=== PATIENT | female | born 1945 | race Caucasian/White ===

== ENCOUNTER 2017-04-23 10:30 | Outpatient (RCR) | payer MEDICARE, OTHER, SELFPAY ==
--- NOTE | 2017-03-19 12:56 | HP.PTEVAL ---
Patient's Visit Information MARY JO RÍOS is a 71 year old F referred to Physical Therapy by Rin CALDERON with a diagnosis of LEG WEAKNESS - RADICULOPATHY?. Date of Evaluation: 03/19/17 Physical Therapist: Majo Ortega - Visit Plan Frequency: 2-3x /Week Duration: 4-6 Weeks Plan: POSTURE CORRECTION/STRENGTHENING, INSTRUCTION IN APPROPRIATE BODY MECHANICS AND ACTIVITY MODIFICATIONS. DLS STARTING WITH A NEUTRAL SPINE PROGRESSING ROM TOLERATED. DAVID LE ROM, STRETCHING AND STRENGTHENING. HEP INSTRUCTION. PATIENT MAY BENEFIT FROM AQUATIC THERAPY AND THIS WAS DISCUSSED WITH PATIENT. SHE REPORTS SHE WAS GOING TO MOVE HER CHECK UP FROM APR TO MAR WITH DR. RIVAS BECAUSE OF HER LEG SX'S AND SHE WOULD LIKE TO GO AHEAD AND SEE DR. RIVAS BEFORE CONTINUING WITH PT. SHE IS AGREEABLE TO AQUATIC THERAPY IF OK'D BY DR. RIVAS. SHE IS GOING TO GO AHEAD AND MAKE AN APPOINTMENT WITH DR. RIVAS NOW AND WILL FOLLOW UP WITH ME NEXT WEEK UNLESS DR. RIVAS WANTS HER TO HOLD PT. - Subjective Subjective: Work/Leisure: RETIRED. [employer]AFF DEVELOPMENT. Disability: NO. Present symptoms: RIGHT GROIN, DAVID THIGH, DAVID LEG AND DAVID FOOT NUMBING AND HEAVINESS. Present since: ABOUT 6 MONTHS AGO. Pain Scale: WORST 5/10. LEAST 1/10. Currently: 03/13. Commenced as a result of: NO APPARENT REASON. Symptoms at onset: ACHINESS IN RIGHT LEG - THE WHOLE LEG. Worse: STANDING, GETTING IN/OUT OF THE CAR, EXERCISING AT HOME, A LOT OF WALKING, SHOPPING, TRYING TO GET OUT OF A CHAIR. ON/OFF TOLIET. INITIATING GAIT AFTER SITTING. Better: SITTING, PUTTING FEET UP, MOVING THE LEG VS KEEPING IT STILL. PRESSURE STOCKING OTC RECOMMENDED BY DR. TORRES. Disturbed sleep: NO. Previous history/Previous treatment: UNREMARKABLE. NO BACK SURGERY. NO BRITTANY'S. NO CHIROPRACTOR. Coughing/sneezing/straining: NEGATIVE. Gait: DISTANCE/TIME LIMITED BECAUSE SHE HAS TOO REALLY FOCUS TO NOT LIMP ON LEFT LE (LEFT KNEE HISTORY) AND BOTH LEGS GET TIRED AND FEEL REALLY WEAK. SHUFFLING. Difficulty initiating urinatin: NO. Accidents: NO. Unexplained weight loss: NO. Imaging: NO LUMBAR IMAGING. PELVIC MRI 2016 DUE TO MONITORING OF A SPOT ON HER OVERY FOR ABOUT 2 YEARS. PMH: BREAST CANCER 1988 TREATED WITH MASTECTOMY RIGHT FOLLOWED BY 9 MONTHS OF CHEMOTHERAPY. NO RADIATION. CANCER FREE SINCE. LEFT KNEE TORN MENISCUS SURGICALLY REPAIRED FEB [address] COTO AT [facility] - STATES SHE STILL HAS DISCOMFORT IN THE KNEE. HAD CORTISONE SHOT ABOUT A YEAR AGO THAT HELPED SOME. NOW SHE IS ON AN ANTIINFLAMMATORY FOR IT BUT HAD TO STOP IT DUE TO SIDE EFFECTS ABOUT 3 MONTHS AGO. SHE HASN'T NOTICED WORSENING OF THE KNEE SINCE STOPPING ANTIINFLAMMATORY BUT CHRONIC PAIN. DOES NOT KNOW HOW SHE HURT HER KNEE. VARICOSE VEIN SURGERIES A FEW YEARS AGO. OTHER: FOR THE PAST MONTH SHE HAS BEEN TRYING SOME STRENGTHEING AND STRETCHING (INCLUDING KNEE TO CHEST) EX'S THAT SHE DID IN PT FOR HER KNEE BUT THEY AREN'T HELPING. THINKS SHE MIGHT HAVE PULLED A MUSCLE IN HER UPPER BACK/NECK FROM DOING NEW NECK EX'S. STATES THAT HER RIGHT HIP POPS SOMETIMES. - Objective Sitting Posture: FAIR. Standing Posture: FAIR. Lordosis: REDUCED. Lateral shift: NO. Relevant shift: N/A. Active Correction of posture: DECREASED DAVID LE SX'S. Other Observations: UNABLE TO TRANSFER INDEP'LY FORM SIT TO STAND WITHOUT UE ASSIST. INDEP GAIT WITHOUT ASSISTIVE DEVICE WITH DECREASED DAVID STRIDE LENGTH AND INCREASED TRUNK SIDE BEND DURING OPPOSITE LE SWING PHASE. Motor deficit: DAVID HIP WEAKNESS GRADED 3+ TO 4-/5. DAVID KNEE EXT 4/5, KNEE FLEX 4/5 AND ANKLE DORSIFLEXION 5/5. Sensory deficit: LIGHT TOUCH IS SYMMETRICAL DAVID LE'S. ROM deficit: TIGHT DAVID HIP FLEXORS, GASTROC SOLEUS COMPLEX'S AND HS'S. TIGHT DAVID HIP ROTATION (IR AND ER) RIGHT > LEFT AND DECREASED RIGHT HIP FLEXION ROM. Reflexes: DAVID ACHILLES DTR'S 2/3, DAVID ACHILLES 1/3. Dural Signs: POSITIVE RIGHT LE. Lumbar mvmt loss: flex - MIN - BURNING IN DAVID HAMSTRINGS SYMMETRICAL. ext - DANO - PROVOKES PULLING IN DAVID LE'S TO ABOUT HER KNEES. R SG - MOD - PROVOKES PAIN IN RIGHT GROIN. L SG - MOD - NO PAIN. Core strength: POOR. Palpation: OTHER: POSITIVE RIGHT VALERIE TEST. RIGHT GROIN PAIN IS PROVOKED WITH INCREASED RIGHT LE WEIGHT BEARING, RIGHT HIP FLEXION TESTING AND VALERIE TEST. ONLY ABLE TO SLS ON EACH LEG FOR A FEW SECONDS. - Goals Goal 1:: DECREASE C/O DAVID LE SX'S Goal Time Frame: 4-6 Weeks Goal 2:: IMPROVE GAIT, TRANSFER, STANDING, RISING FROM SITTING, AND INDEP EX FUNCTION Goal Time Frame: 4-6 Weeks Goal 3:: INSTRUCT IN PROPHYLAXIS Goal Time Frame: 4-6 Weeks - Rehabilitation Potential Rehabilitation Potential: Fair - Anticipated Interventions Patient/Client Instruction: Educate patient on: Condition, Plan of Care, Risk Factors, Benefits of Fitness Program For the Purpose of:: To improve self management Therapeutic Exercise to Include: Strength training, Balance training, Body mechanics, Postural training, Gait and locomotor training, In an aquatic setting, Dynamic Lumbar Stabilization For the Purpose of:: To improve ability of physical actions for home/community/work/leisure Thank you for the opportunity to evaluate your patient. For Medicare and Medicare HMO plans, please review the plan of care and approve it. It will need to be FAXED BACK to us at [phone] for Medicare purposes. Please let me know if there are questions or concerns regarding this plan of care. Physician Signature: Date:
--- NOTE | 2017-04-23 11:38 | HP.PTREVAL_ITS ---
DR.NHORN Jackson It has been my pleasure to treat MARY JO RÍOS over the last 10 visits for LEG WEAKNESS - RADICULOPATHY?. Please see the progress note below for an update on the physical therapy plan of care! Subjective: PATIENT REPORTS HER LEFT KNEE IS TWICE MUCH BETTER AND SHE IS STILL IMPROVING WITH THE EX'S. PATIENT REPORTS SHE IS STILL HAVING RIGHT GROIN PAIN AND IT DOESN'T SEEM TO BE IMPROVING. HAS AN APPOINTMENT WITH DR. RIVAS SATURDAY FOR IT. GETTING INTO THE CAR IS STILL A PROBLEM. PATIENT REPORTS THAT HER DAVID THIGH PAIN, AND THE NUMBING IN HER LEGS AND FEET ARE A LOT BETTER. GETTING UP FROM A CHAIR AND OFF OF THE TOLIET IS BETTER. BENDING TO DO SCAPBOOKING AND RISING FROM SITTING PROVOKES LE SX'S. PATIENT REPORTS SHE HAS NOT HAD ANY LUMBAR OR HIP IMAGING. Objective/Function: PATIENT HAS IMPROVED IN TERMS OF HER DAVID LE SX'S AND STRENGTH BUT SHE CONTINUES TO HAVE POOR CORE STRENGTH AND RIGHT GROIN PAIN. UPON EXAM, PATEL IS NOW ABLE TO TRANSFER INDEP'LY FORM SIT TO STAND WITHOUT UE ASSIST. INDEP GAIT WITHOUT ASSISTIVE DEVICE AND ONLY MILD LIMP NOW. Motor deficit: DAVID HIP WEAKNESS GRADED 4-/5 RIGHT AND 4/5 LEFT. DAVID KNEE EXT 4/5, KNEE FLEX 5/5 AND ANKLE DORSIFLEXION 5/5 WITH MMT. Sensory deficit: LIGHT TOUCH IS SYMMETRICAL DAVID LE'S. ROM deficit: TIGHT DAVID HIP FLEXORS, GASTROC SOLEUS COMPLEX'S AND HS'S. TIGHT DAVID HIP ROTATION (IR AND ER) RIGHT > LEFT AND DECREASED RIGHT HIP FLEXION ROM. Dural Signs: NEGATIVE DAVID LE'S. Lumbar mvmt loss: flex - MIN - BURNING IN DAVID HAMSTRINGS SYMMETRICAL. ext - DANO - PROVOKES PULLING IN RIGHT LE TO ABOUT HER KNEES. R SG - MOD - PROVOKES PAIN IN RIGHT GROIN. L SG - MOD - NO PAIN. Core strength: POOR. OTHER: POSITIVE RIGHT VALERIE TEST. RIGHT GROIN PAIN IS PROVOKED WITH INCREASED RIGHT LE WEIGHT BEARING, RIGHT HIP FLEXION TESTING, VALERIE TEST, HIP EXTENSION IN STANDING AND STANDING ERECT. Plan Plan: WOULD RECOMMEND PHYSICIAN RE-ASSESSMENT AND CONTINUED PT 3X'S A WEEK X 10 VISITS FOR AQUATIC THERAPY AND FURTHER POSTURE CORRECTION/STRENGTHENING, INSTRUCTION IN APPROPRIATE BODY MECHANICS AND ACTIVITY MODIFICATIONS. DLS STARTING WITH A NEUTRAL SPINE PROGRESSING ROM TOLERATED. DAVID LE ROM, STRETCHING AND STRENGTHENING. HEP INSTRUCTION. Goals Goal 1:: DECREASE C/O DAVID LE SX'S Goal Time Frame: 4-6 Weeks Goal Progress: Progressing Goal 2:: IMPROVE GAIT, TRANSFER, STANDING, RISING FROM SITTING, AND INDEP EX FUNCTION Goal Time Frame: 4-6 Weeks Goal Progress: Progressing Goal 3:: INSTRUCT IN PROPHYLAXIS Goal Time Frame: 4-6 Weeks Goal Progress: Progressing Anticipated Interventions Patient/Client Instruction: Educate patient on: Condition, Plan of Care, Risk Factors, Benefits of Fitness Program For the Purpose of:: To improve self management Therapeutic Exercise to Include: Strength training, Balance training, Body mechanics, Postural training, Gait and locomotor training, In an aquatic setting, Dynamic Lumbar Stabilization For the Purpose of:: To improve ability of physical actions for home/community/ work/leisure Please do not hesitate to contact me at [phone] by phone or Fax: if you have questions or concerns regarding this new plan of care! Sincerely, Majo Ortega
--- NOTE | 2017-09-03 12:46 | HP.PTDCSUM ---
HP - PT D/C Summary It has been my pleasure to treat MARY JO RÍOS under orders from Rin Dasilva, for the diagnosis of LEG WEAKNESS - RADICULOPATHY? for a total of 10 visit(s). Discharge Date: Please see the following information for a summary of their discharge status. - Subjective Subjective: PATIENT REPORTS HER LEFT KNEE IS TWICE MUCH BETTER AND SHE IS STILL IMPROVING WITH THE EX'S. PATIENT REPORTS SHE IS STILL HAVING RIGHT GROIN PAIN AND IT DOESN'T SEEM TO BE IMPROVING. HAS AN APPOINTMENT WITH DR. RIVAS SATURDAY FOR IT. GETTING INTO THE CAR IS STILL A PROBLEM. PATIENT REPORTS THAT HER DAVID THIGH PAIN, AND THE NUMBING IN HER LEGS AND FEET ARE A LOT BETTER. GETTING UP FROM A CHAIR AND OFF OF THE TOLIET IS BETTER. BENDING TO DO SCAPBOOKING AND RISING FROM SITTING PROVOKES LE SX'S. PATIENT REPORTS SHE HAS NOT HAD ANY LUMBAR OR HIP IMAGING. - Pain LEFT KNEE Pain Intensity (Out of 10): 0 - Overall Improvement % Improvement: 50 - Objective Objective/Function: PATIENT HAS IMPROVED IN TERMS OF HER DAVID LE SX'S AND STRENGTH BUT SHE CONTINUES TO HAVE POOR CORE STRENGTH AND RIGHT GROIN PAIN. UPON EXAM, PATEL IS NOW ABLE TO TRANSFER INDEP'LY FORM SIT TO STAND WITHOUT UE ASSIST. INDEP GAIT WITHOUT ASSISTIVE DEVICE AND ONLY MILD LIMP NOW. Motor deficit: DAVID HIP WEAKNESS GRADED 4-/5 RIGHT AND 4/5 LEFT. DAVID KNEE EXT 4/5, KNEE FLEX 5/5 AND ANKLE DORSIFLEXION 5/5 WITH MMT. Sensory deficit: LIGHT TOUCH IS SYMMETRICAL DAVID LE'S. ROM deficit: TIGHT DAVID HIP FLEXORS, GASTROC SOLEUS COMPLEX'S AND HS'S. TIGHT DAVID HIP ROTATION (IR AND ER) RIGHT > LEFT AND DECREASED RIGHT HIP FLEXION ROM. Dural Signs: NEGATIVE DAVID LE'S. Lumbar mvmt loss: flex - MIN - BURNING IN DAVID HAMSTRINGS SYMMETRICAL. ext - DANO - PROVOKES PULLING IN RIGHT LE TO ABOUT HER KNEES. R SG - MOD - PROVOKES PAIN IN RIGHT GROIN. L SG - MOD - NO PAIN. Core strength: POOR. OTHER: POSITIVE RIGHT VALERIE TEST. RIGHT GROIN PAIN IS PROVOKED WITH INCREASED RIGHT LE WEIGHT BEARING, RIGHT HIP FLEXION TESTING, VALERIE TEST, HIP EXTENSION IN STANDING AND STANDING ERECT. - Goals Goal 1:: DECREASE C/O DAVID LE SX'S Goal Progress: Progressing Goal 2:: IMPROVE GAIT, TRANSFER, STANDING, RISING FROM SITTING, AND INDEP EX FUNCTION Goal Progress: Progressing Goal 3:: INSTRUCT IN PROPHYLAXIS Goal Progress: Progressing - Plan Plan: WOULD RECOMMEND PHYSICIAN RE-ASSESSMENT AND CONTINUED PT 3X'S A WEEK X 10 VISITS FOR AQUATIC THERAPY AND FURTHER POSTURE CORRECTION/STRENGTHENING, INSTRUCTION IN APPROPRIATE BODY MECHANICS AND ACTIVITY MODIFICATIONS. DLS STARTING WITH A NEUTRAL SPINE PROGRESSING ROM TOLERATED. DAVID LE ROM, STRETCHING AND STRENGTHENING. HEP INSTRUCTION. - D/C Information If there are questions or concerns regarding this patient's physical therapy, please feel free to call me at [phone]. Thank you for the referral of this patient. Sincerely, Majo Ortega
== END 2017-04-23 19:00 | disposition home or self-care (01) ==
LOC: PT 10:30
PROVIDERS: Family Provider Internal Medicine; PCP Internal Medicine; Visit Provider Podiatrist
DX: R29.898 Other symptoms and signs involving the musculoskeletal system (principal)
CPT/HCPCS: 97110; 97162; 97530

== ENCOUNTER → 2017-04-26 09:50 | Outpatient (CLI) | payer MEDICARE, OTHER, SELFPAY ==
--- NOTE | 2017-04-26 09:54 | RAD_ITS ---
STUDY: X-RAY - UNILATERAL RIBS ( RIGHT ) WITH CHEST REASON FOR EXAM: Female, 71 years old. Right rib pain. No history of injury. TECHNIQUE - RIBS: 4 view(s) of the ribs. TECHNIQUE - CHEST: Single frontal view of the chest. COMPARISON: None. FINDINGS - RIBS: There is deformity of the lateral aspect of the right sixth and seventh ribs probably due to old fractures. There is no demonstrated acute fracture. FINDINGS - CHEST: The lungs are clear and expanded. There is pleural fibrotic thickening of the pulmonary lung apices. Normal size heart. Normal mediastinum and ciera. Normal visualized pulmonary arteries. Normal visualized aortic arch and descending thoracic aorta. There are diffuse degenerative changes of the visualized thoracic spine. There is degenerative osteoarthritis of the bilateral shoulders. There is no demonstrated abnormality of the visualized soft tissue structures of the upper abdomen. RAD/Ribs Uni Min 3V w/PA Chest IMPRESSION: RIBS: Deformity of the right sixth and seventh ribs probably due to old fracture. No demonstrated acute fracture. CHEST: No active pulmonary disease. Electronically Signed: Mikey Cruz MD at 8:55 EST Tel , Service support ,
--- NOTE | 2017-04-26 09:54 | RAD_ITS ---
STUDY: X-RAY - PELVIS AND RIGHT HIP REASON FOR EXAM: Female, 71 years old. Pain. TECHNIQUE: Radiological exam, hip, unilateral, with pelvis when performed; 2 or 3 views. COMPARISON: None. FINDINGS: There is a non-specific bowel gas pattern. There is a small calcification in the left side of L4-L5 which could be due to phleboliths. There are degenerative changes in the lower lumbar spine. Normal bilateral iliac wings, sacroiliac joints and visualized sacrum. Normal bilateral superior and inferior pubic rami. Normal pubic symphysis. Normal bilateral ischial tuberosities. Normal visualized femoral head. Normal acetabulum. There is mild articular joint space narrowing of the hip. RAD/Hip 2-3 Views with Pelvis IMPRESSION: Degenerative changes in the visualized lower lumbar spine. Mild narrowing of the right hip joint. Electronically Signed: Mikey Cruz MD at 8:52 EST Tel , Service support ,
== END ==
PROVIDERS: Family Provider Internal Medicine; PCP Internal Medicine; Visit Provider Internal Medicine
DX: R07.81 Pleurodynia (principal); M25.559 Pain in unspecified hip
CPT/HCPCS: 71101; 73502

== ENCOUNTER → 2017-06-18 07:14 | Outpatient (CLI) | payer MEDICARE, OTHER, SELFPAY ==
[2017-06-18 07:37] LABS: Absolute Lymphocyte Count 1.01 X10^3/ul (0.83-4.51); Absolute Neutrophil Count 2.1 X10^3/uL (2.0-7.7); Basophil# 0.02 X10^3/uL; Basophil% 0.5 % (0-1); Eosinophil# 0.13 X10^3/uL; Eosinophils% 3.4 % (0-5); Hematocrit 39.8 % (37-47); Hemoglobin 13.3 g/dl (12.0-15.0); Lymphocyte # 1.01 X10^3/ul (4.0); Lymphocyte % 26.6 % (19-41); Mean Corp Hgb Conc 33.4 g/gl (32-36); Mean Corpuscular Hgb 31.1 pg (27.0-32.0); Mean Platelet Vol. 9.9 fl (6.2-12.0); Monocyte# 0.51 X10^3/uL; Monocyte% 13.5 % (0-10); Neutrophil # 2.12 X10^3/uL (2.7-7.7); Platelet Count 249 K/mm3 (150-450); RBC Distribution Width CV 12.4 % (11.6-14.6); RBC Distribution Width SD 41.3 fl (35.1-43.9); Red Blood Count 4.28 M/mm3 (4.2-5.4); White Blood Count 3.8 K/mm3 (4.4-11.0)
[2017-06-18 07:47] LABS: POSITIVE COUNT NO; POSITIVE DIFFERENTIAL NO; POSITIVE MORPHOLOGY NO
[2017-06-18 08:02] LABS: ALB/GLOB Ratio 1.1 RATIO (0.9-2.4); AST(SGOT) 18 U/L (15-37); Alanine Aminotransfer ALT/SGPT 19 U/L (13-56); Albumin, Serum 3.8 g/dL (3.2-5.0); Alkaline Phosphatase 63 U/L (45-117); Anion Gap 6 (5-15); BUN 13 mg/dL (7-18); BUN/Creat Ratio 18.9 RATIO (10-20); Calcium,Total 9.3 mg/dL (8.5-10.1); Chloride 105 mmol/L (98-107); Creatinine, Serum 0.69 mg/dL (0.55-1.02); EST Glomerular Filtration Rate 89 mL/min (>60); Est Glom Filt Rate - Afr Amer 108 mL/min (>60); Globulin 3.4 g/dL (2.2-4.2); Glucose 90 mg/dL (74-106); Potassium 3.7 mmol/L (3.5-5.1); Protein, Total 7.2 g/dL (6.4-8.2); Sodium Level 142 mmol/L (136-145)
[2017-06-18 09:32] LABS: Hemoglobin A1c 5.7 % (4.2-6.3)
== END ==
PROVIDERS: Family Provider Internal Medicine; PCP Internal Medicine; Visit Provider Internal Medicine
DX: K76.0 Fatty (change of) liver, not elsewhere classified (principal); L65.9 Nonscarring hair loss, unspecified; R73.01 Impaired fasting glucose
CPT/HCPCS: 36415; 80053; 82105; 82677; 83036; 84702; 85025; 86336

== ENCOUNTER → 2017-07-02 09:25 | Outpatient (CLI) | payer MEDICARE, OTHER, SELFPAY ==
--- NOTE | 2017-07-02 09:45 | MRI_ITS ---
STUDY: MRI ABDOMEN WITH CONTRAST REASON FOR EXAM: Female, 71 years old. Follow-up pancreatic cyst. TECHNIQUE: Standardized fat and water weighted pulse sequences were obtained in all 3 orthogonal planes post contrast administration. 7 ml of Gadavist contrast material was administered intravenously. COMPARISON: CT scan 01/07/2015, CT scan 08/02/2016, previous MRI 12/17/2016.. FINDINGS: The visualized lung bases are unremarkable. The visualized portions of the heart are within normal limits. There is a marked decrease in the signal intensity of the liver on the axial T1-weighted images on the opposed-phase images as compared to the in-phase images, consistent with diffuse steatosis. There is hepatomegaly. Normal gallbladder. Distended common bile duct reaching 1.1 cm. Possible intraluminal structure or mass as seen on image 13 of sequence 9 and image 33 of sequence 3. ERCP suggested. Normal spleen. Essentially normal pancreas. Currently, no significant mass is seen in previously described tiny cyst is also essentially inapparent. Normal bilateral adrenal glands. Normal right kidney. Normal left kidney. Stable bilateral small renal cysts. Normal visualized stomach. Normal small intestine. Normal colon. The appendix is visualized and appears normal. Normal abdominal aorta. Normal inferior vena cava. Normal retroperitoneum. Normal abdominal wall. There are diffuse degenerative changes of the visualized lumbar spine. MRI/MRI Abd WITH and W/O Contrast IMPRESSION: Fatty liver and hepatomegaly. Distended common bile duct, cannot exclude intraluminal contents distally. ERCP suggested. On this exam, pancreas is essentially unremarkable with no evidence for significant mass. Electronically Signed: Mikael Gorman MD at 14:05 EDT , Service support ,
== END ==
PROVIDERS: Family Provider Internal Medicine; PCP Internal Medicine; Visit Provider Internal Medicine
DX: K86.2 Cyst of pancreas (principal)
CPT/HCPCS: 74183; A9585

== ENCOUNTER 2017-08-09 23:58 | Inpatient (IN) | payer MEDICARE, OTHER, SELFPAY ==
--- NOTE | 2017-08-09 13:06 | EKG12_ITS ---
Test Reason : CELLULITIS Blood Pressure : / mmHG Vent. Rate : 078 BPM Atrial Rate : 078 BPM P-R Int : 154 ms QRS Dur : 098 ms QT Int : 376 ms P-R-T Axes : 067 067 058 degrees QTc Int : 428 ms Normal sinus rhythm Left ventricular hypertrophy Abnormal ECG Confirmed by NASH PUCKETT, HUANG ([id number]), international editorial producer XUAN MONTGOMERY ([id number]) on 08/14/2017 5:35:08 PM Referred By: RAMON/STEPHANE Confirmed By:HUANG CAO MD
--- NOTE | 2017-08-09 19:45 | RAD_ITS ---
STUDY: X-RAY CHEST REASON FOR EXAM: Female, 71 years old. Fever and cellulitis TECHNIQUE: Single AP portable view of the chest. COMPARISON: 04/26/2017 FINDINGS: There is hyperinflation of the lungs consistent with chronic obstructive lung disease (COPD). Lungs are clear. There is no demonstrated pleural abnormality. There is mild cardiac enlargement. Normal mediastinum and ciera. Normal visualized pulmonary arteries. Normal visualized aortic arch and descending thoracic aorta. There are diffuse degenerative changes of the visualized thoracic spine. Normal visualized ribs, clavicles, and shoulders. There is no demonstrated abnormality of the visualized soft tissue structures of the upper abdomen. RAD/Chest 1 View (Portable) IMPRESSION: COPD without acute findings Electronically Signed: Elliott Phillip DO at 20:02 EDT Tel , Service support ,
--- NOTE | 2017-08-09 23:59 | DT_ITS ---
This patient was seen during an EMR downtime August 05, 2017 - August 12, 2017. This patient may have a combination of paper and electronic documentation or all paper documentation. All documentation is viewable within the e-chart portion of [employer] for each patient visit.
--- NOTE | 2017-08-10 10:32 | VDUE_ITS ---
Reason For Study: RUE cellulitis Right Proximal Right jugular vein is spontaneous, widely patent, phasic, with no intraluminal echogenicity noted. Right subclavian vein is spontaneous, widely patent, phasic, with no intraluminal echogenicity noted. Right Lower Arm Right radial vein is compressible. Right ulnar vein is compressible. Right Arm Right axillary vein is spontaneous, patent, phasic, competent, compressible and demonstrates augmentation. Right brachial vein is compressible. Right cephalic vein is compressible. Right basilic vein is compressible. < Patient Safety Preliminary given to Gabby MS3 bellows charger assembler. Interpretation Summary Deep veins of the right upper extremity are patent and compressible segmentally. There is no evidence of deep vein thrombosis. The superficial veins of the right upper extremity, the basilic and cephalic veins, are patent and compressible. There is no evidence of right upper extremity superficial thrombophlebitis involving the veins imaged. Ordering Physician: Ronel Berman Referring Physician: MAYO ANDINO Performed By: Yumiko Martin RDCS, RVT ??? Reason For Study: RUE cellulitis < Interpretation Summary Ordering Physician: Ronel Berman Referring Physician: MAYO ANDINO Performed By: Yumiko Martin RDCS, RVT
[2017-08-10 14:38] LABS: M R Staph aureus DNA By PCR Negative (Negative); Probe Check PASS; Specimen Processing Control PASS
[2017-08-11 07:33] LABS: Hematocrit 39.9 % (37-47); Hemoglobin 13.1 g/dl (12.0-15.0); Mean Corpuscular Hgb 30.8 pg (27.0-32.0); Mean Corpuscular Volume 93.7 fL (81-99); Red Blood Count 4.26 M/mm3 (4.2-5.4); White Blood Count 7.5 K/mm3 (4.4-11.0)
[2017-08-11 07:34] LABS: Mean Corp Hgb Conc 32.8 g/gl (32-36); Mean Platelet Vol. 9.7 fl (6.2-12.0); Platelet Count 231 K/mm3 (150-450); RBC Distribution Width CV 12.8 % (11.6-14.6); RBC Distribution Width SD 44.1 fl (35.1-43.9); Scan Indicated on CBC? Y/N NO
[2017-08-11 12:48] LABS: Anion Gap 9 (5-15); BUN 6 mg/dL (7-18); Calcium,Total 8.3 mg/dL (8.5-10.1); Chloride 106 mmol/L (98-107); EST Glomerular Filtration Rate 129 mL/min (>60); Est Glom Filt Rate - Afr Amer 156 mL/min (>60); Glucose 114 mg/dL (74-106); Potassium 3.4 mmol/L (3.5-5.1); Sodium Level 139 mmol/L (136-145)
[2017-08-13 02:55] LABS: Lactic Acid 0.9 mmol/L (0.4-2.0)
[2017-08-13 04:42] LABS: Hematocrit 43.4 % (37-47); Hemoglobin 14.4 g/dl (12.0-15.0); International Normalized Ratio 0.9; Mean Corpuscular Volume 94.1 fL (81-99); Partial Thromboplast Time 28.6 Seconds (24.1-36.2); Prothrombin Time (Protime)PT. 12.5 SECONDS (11.7-14.9); Red Blood Count 4.61 M/mm3 (4.2-5.4); White Blood Count 9.7 K/mm3 (4.4-11.0)
[2017-08-13 04:43] LABS: Absolute Lymphocyte Count 1.09 X10^3/ul (0.83-4.51); Absolute Neutrophil Count 8.1 X10^3/uL (2.0-7.7); Basophil# 0.02 X10^3/uL; Basophil% 0.2 % (0-1); Lymphocyte # 1.09 X10^3/ul (4.0); Lymphocyte % 11.2 % (19-41); Mean Corp Hgb Conc 33.2 g/gl (32-36); Mean Corpuscular Hgb 31.2 pg (27.0-32.0); Mean Platelet Vol. 9.8 fl (6.2-12.0); Monocyte# 0.56 X10^3/uL; Monocyte% 5.8 % (0-10); Neutrophil % 82.7 % (47-70); POSITIVE COUNT NO; POSITIVE DIFFERENTIAL NO; POSITIVE MORPHOLOGY NO; Platelet Count 266 K/mm3 (150-450); RBC Distribution Width CV 12.7 % (11.6-14.6)
[2017-08-13 04:45] LABS: BUN 11 mg/dL (7-18); Glucose 108 mg/dL (74-106)
[2017-08-13 04:46] LABS: ALB/GLOB Ratio 1.1 RATIO (0.9-2.4); AST(SGOT) 24 U/L (15-37); Alanine Aminotransfer ALT/SGPT 26 U/L (13-56); Albumin, Serum 4.1 g/dL (3.2-5.0); Alkaline Phosphatase 64 U/L (45-117); Anion Gap 8 (5-15); BUN/Creat Ratio 17.5 RATIO (10-20); Calcium,Total 9.1 mg/dL (8.5-10.1); Chloride 99 mmol/L (98-107); Creatinine, Serum 0.63 mg/dL (0.55-1.02); EST Glomerular Filtration Rate 99 mL/min (>60); Est Glom Filt Rate - Afr Amer 120 mL/min (>60); Globulin 3.7 g/dL (2.2-4.2); Potassium 3.2 mmol/L (3.5-5.1); Protein, Total 7.8 g/dL (6.4-8.2); Sodium Level 137 mmol/L (136-145)
[2017-08-13 09:54] LABS: Anion Gap 7 (5-15); BUN 8 mg/dL (7-18); BUN/Creat Ratio 14.3 RATIO (10-20); Calcium,Total 8.1 mg/dL (8.5-10.1); Chloride 108 mmol/L (98-107); Creatinine, Serum 0.56 mg/dL (0.55-1.02); EST Glomerular Filtration Rate 113 mL/min (>60); Est Glom Filt Rate - Afr Amer 137 mL/min (>60); Glucose 100 mg/dL (74-106); Magnesium 2.3 mg/dL (1.6-2.6); Potassium 3.3 mmol/L (3.5-5.1); Sodium Level 143 mmol/L (136-145)
[2017-08-13 21:31] LABS: Hemoglobin 12.3 g/dl (12.0-15.0); Mean Corp Hgb Conc 33.2 g/gl (32-36); Mean Corpuscular Volume 93.2 fL (81-99); Mean Platelet Vol. 9.8 fl (6.2-12.0); Neutrophil % 71.8 % (47-70); POSITIVE COUNT NO; POSITIVE DIFFERENTIAL NO; POSITIVE MORPHOLOGY NO; Platelet Count 230 K/mm3 (150-450); RBC Distribution Width CV 13.1 % (11.6-14.6); RBC Distribution Width SD 44.6 fl (35.1-43.9); Red Blood Count 3.97 M/mm3 (4.2-5.4); White Blood Count 5.6 K/mm3 (4.4-11.0)
[2017-08-13 21:32] LABS: Absolute Lymphocyte Count 1.07 X10^3/ul (0.83-4.51); Absolute Neutrophil Count 4.1 X10^3/uL (2.0-7.7); Basophil# 0.01 X10^3/uL; Basophil% 0.2 % (0-1); Eosinophil# 0.03 X10^3/uL; Eosinophils% 0.5 % (0-5); Lymphocyte # 1.07 X10^3/ul (4.0); Monocyte# 0.48 X10^3/uL; Monocyte% 8.5 % (0-10); Neutrophil # 4.05 X10^3/uL (2.7-7.7)
== END 2017-08-11 09:30 | disposition home or self-care (01) | DRG 603 ==
LOC: ED 08-10 08:55 → MS3 08-10 08:56
PROVIDERS: Internal Medicine; Admitting Provider Family Medicine; Emergency Provider Emergency Medicine; Family Provider Internal Medicine; PCP Internal Medicine; Visit Provider Family Medicine
DX: L03.113 Cellulitis of right upper limb (principal); E87.6 Hypokalemia; I97.2 Postmastectomy lymphedema syndrome; B19.20 Unspecified viral hepatitis C without hepatic coma; Z85.3 Personal history of malignant neoplasm of breast; Z90.11 Acquired absence of right breast and nipple; Z87.891 Personal history of nicotine dependence
CPT/HCPCS: 36415; 71045; 80048; 80053; 83605; 83735; 84484; 85025; 85027; 85610; 85730; 87040; 87641; 93005; 93971; 96365; 96367; 99285; J7030; A4216; J2405

== ENCOUNTER → 2017-09-03 14:41 | Outpatient (CLI) | payer MEDICARE, OTHER, SELFPAY ==
--- NOTE | 2017-09-03 14:44 | CT_ITS ---
STUDY: CT ABDOMEN AND PELVIS WITH CONTRAST REASON FOR EXAM: Female, 71 years old. Left lower quadrant pain for 5 days with constipation. History of kidney stones and appendectomy. RADIATION DOSAGE (If Supplied By Facility): CTDIvol = ( 11.23 ) mGy, DLP = ( 742.20 ) mGycm TECHNIQUE: Transaxial images were obtained from the dome of the diaphragm to the symphysis pubis without oral contrast. 100 ml of Isovue 300 contrast was administered. Sagittal and coronal images were reconstructed. Individualized dose optimization techniques were used for this CT. COMPARISON: MRI abdomen July 02, 2017; CT abdomen and pelvis August 02, 2016. FINDINGS: The visualized lung bases are unremarkable. The visualized portions of the heart are within normal limits. The elongated right lobe of liver is just over 20 cm in height, extending to the right iliac crest. No demonstrated focal hepatic mass. The patent portal vein diameter is 15.5 mm. Normal gallbladder. The diameter of the common bile duct reaches 8mm, and there is borderline intrahepatic bile duct ectasia. Normal spleen. Normal pancreas. Normal bilateral adrenal glands. There is a stable 14 mm cortical cyst in the posterior midpole of the right kidney. Mild to moderate left hydroureteronephrosis down to a 6 mm stone at the mid ureter. Normal visualized stomach. There is a gas-filled 1.55 x 1.3 x 2.2 cm periampullary duodenal diverticulum. Normal small intestine. There are multiple colonic diverticula consistent with diverticulosis. There is a suture line in the region of the appendix consistent with a prior appendectomy. There is minimal atherosclerotic calcification of the abdominal aorta and internal iliac arteries, without a demonstrated aneurysm. Normal inferior vena cava. There are stable nonspecific periaortic lymph nodes in the retroperitoneum. Normal urinary bladder. There is atrophy of the uterus. Normal abdominal wall. There are diffuse degenerative changes and mild S-shaped scoliosis of the visualized lumbar spine. There is [id number] osteophytic degenerative narrowing of the bilateral hip joints, greater on the right. CT/Abdomen/Pelvis WITH Contrast IMPRESSION: 1. 6 mm stone, seen previously in the lower pole left kidney, is now in the mid left ureter. There is mild to moderate proximal left hydroureteronephrosis. 2. Stable 14 mm cortical cyst at the midpole of the right kidney. 3. Stable elongated right lobe of liver. No demonstrated hepatic mass. 4. There is a periampullary diverticulum of the duodenum. There is stable mild ectasia of the biliary tree down to this level. 5. Colonic diverticulosis without acute diverticulitis. No sign of bowel obstruction. Prior appendectomy. 6. Degenerative changes and mild S-shaped scoliosis of the lumbar spine, as well as degenerative arthrosis of the bilateral hips, greater on the right. Electronically Signed: Rashaad Becerra MD at 18:22 EDT , Service support ,
[2017-09-03 14:59] LABS: Lyme Ab Screen Interpretation REF LAB
[2017-09-03 15:53] LABS: Erythrocyte Sedimentation Rate 28 mm/hr (0-30)
[2017-09-03 15:56] LABS: Absolute Lymphocyte Count 1.03 X10^3/ul (0.83-4.51); Absolute Neutrophil Count 4.6 X10^3/uL (2.0-7.7); Basophil# 0.04 X10^3/uL; Basophil% 0.6 % (0-1); Eosinophil# 0.09 X10^3/uL; Eosinophils% 1.3 % (0-5); Lymphocyte # 1.03 X10^3/ul (4.0); Lymphocyte % 15.1 % (19-41); Mean Corp Hgb Conc 34.1 g/gl (32-36); Mean Corpuscular Hgb 31.2 pg (27.0-32.0); Mean Corpuscular Volume 91.3 fL (81-99); Mean Platelet Vol. 10.3 fl (6.2-12.0); Monocyte# 1.02 X10^3/uL; Neutrophil # 4.61 X10^3/uL (2.7-7.7); Neutrophil % 67.7 % (47-70); Platelet Count 256 K/mm3 (150-450); RBC Distribution Width CV 12.4 % (11.6-14.6); RBC Distribution Width SD 40.6 fl (35.1-43.9); Red Blood Count 4.49 M/mm3 (4.2-5.4); White Blood Count 6.8 K/mm3 (4.4-11.0)
[2017-09-03 16:07] LABS: POSITIVE COUNT NO; POSITIVE DIFFERENTIAL NO; POSITIVE MORPHOLOGY NO
[2017-09-03 17:07] LABS: ALB/GLOB Ratio 1.1 RATIO (0.9-2.4); AST(SGOT) 29 U/L (15-37); Alanine Aminotransfer ALT/SGPT 24 U/L (13-56); Albumin, Serum 4.1 g/dL (3.2-5.0); Alkaline Phosphatase 64 U/L (45-117); Anion Gap 10 (5-15); BUN 17 mg/dL (7-18); Calcium,Total 9.7 mg/dL (8.5-10.1); Chloride 100 mmol/L (98-107); Creatinine, Serum 1.06 mg/dL (0.55-1.02); EST Glomerular Filtration Rate 54 mL/min (>60); Est Glom Filt Rate - Afr Amer 65 mL/min (>60); Globulin 3.7 g/dL (2.2-4.2); Glucose 102 mg/dL (74-106); Potassium 3.5 mmol/L (3.5-5.1); Protein, Total 7.8 g/dL (6.4-8.2); Rheumatoid Factor < 10.0 IU/mL (<15); Sodium Level 137 mmol/L (136-145)
[2017-09-06 14:32] LABS: ANTINUCLEAR ANTIBODIES DIRECT Negative (Negative)
[2017-09-07 03:07] LABS: Angiotensin Convert Enzyme 66 U/L (14-82)
[2017-09-09 10:22] LABS: CCP IgG Antibodies 5 units (0-19); Lyme Scn Total Ab w/Rflx <0.91 ISR (0.00-0.90)
== END ==
PROVIDERS: Family Provider Internal Medicine; PCP Internal Medicine; Visit Provider Internal Medicine
DX: R10.32 Left lower quadrant pain (principal)
CPT/HCPCS: 36415; 74177; 80053; 82164; 85025; 85652; 86038; 86140; 86200; 86431; 86618; Q9967

== ENCOUNTER → 2017-09-19 13:20 | Outpatient (CLI) | payer MEDICARE, OTHER, SELFPAY ==
[2017-09-19 16:33] LABS: ALB/GLOB Ratio 1.1 RATIO (0.9-2.4); AST(SGOT) 23 U/L (15-37); Alanine Aminotransfer ALT/SGPT 23 U/L (13-56); Albumin, Serum 3.9 g/dL (3.2-5.0); Alkaline Phosphatase 56 U/L (45-117); Anion Gap 6 (5-15); BUN 15 mg/dL (7-18); Calcium,Total 9.3 mg/dL (8.5-10.1); Chloride 103 mmol/L (98-107); Creatinine, Serum 0.71 mg/dL (0.55-1.02); EST Glomerular Filtration Rate 85 mL/min (>60); Est Glom Filt Rate - Afr Amer 103 mL/min (>60); Globulin 3.4 g/dL (2.2-4.2); Glucose 79 mg/dL (74-106); Magnesium 2.1 mg/dL (1.6-2.6); Potassium 3.6 mmol/L (3.5-5.1); Protein, Total 7.3 g/dL (6.4-8.2); Sodium Level 139 mmol/L (136-145)
[2017-09-20 08:14] LABS: Vitamin D,25 Hydroxy 83.9 ng/mL (29.95-100.01)
== END ==
PROVIDERS: Family Provider Internal Medicine; PCP Internal Medicine; Visit Provider Internal Medicine Endocrinology, Diabetes & Metabolism
DX: M81.0 Age-related osteoporosis without current pathological fracture (principal); E04.9 Nontoxic goiter, unspecified; E55.9 Vitamin D deficiency, unspecified; E83.42 Hypomagnesemia
CPT/HCPCS: 36415; 80053; 82306; 83735; 84443

== ENCOUNTER → 2017-09-30 09:54 | Outpatient (CLI) | payer MEDICARE, OTHER, SELFPAY ==
--- NOTE | 2017-09-30 09:56 | BI_ITS ---
MAMMOGRAPHY - UNILATERAL SCREENING: LEFT BREAST REASON FOR EXAM: Female, 71 years old. Routine annual screening examination (unilateral). PERTINENT HISTORY: Personal history of breast cancer. Prior right mastectomy and chemotherapy. TECHNIQUE: Digital unilateral breast roxana (3D mammographic acquisition) in the CC and MLO projections. 2-D mediolateral oblique (MLO) and craniocaudad (CC) views of both breasts were obtained. CAD: Full Field Digital Mammography with Computer Added Detection was performed. COMPARISON: Comparison is made with prior study dated September 27, 2016 and September 26, 2015. FINDINGS: Breast Composition: The breasts are heterogeneously dense, which may obscure small masses. There are no dominant masses or suspicious calcifications. No other significant abnormalities are identified. There has been no significant change since the prior study. BI/UNILAT LT SCRN W/CAD IMPRESSION: Stable unilateral screening mammogram. Yearly follow-up mammogram recommended. (A) ASSESSMENT CATEGORY: BIRADS Category 1: Negative. A letter regarding these results will be sent to the patient by the facility within 30 days. Approximately 10% of breast cancers are not detected by mammography. A normal mammogram should not delay biopsy of a clinically suspicious abnormality. [id number] Electronically Signed: Filiberto Medellin MD at 11:28 EDT Tel [phone], Service support ,
== END ==
PROVIDERS: Family Provider Internal Medicine; PCP Internal Medicine; Visit Provider Internal Medicine
DX: Z12.31 Encounter for screening mammogram for malignant neoplasm of breast (principal); Z85.3 Personal history of malignant neoplasm of breast; Z90.11 Acquired absence of right breast and nipple
CPT/HCPCS: 77061; 77067; G0279

== ENCOUNTER → 2017-10-02 10:05 | Outpatient (CLI) | payer MEDICARE, OTHER, SELFPAY ==
[2017-10-05 03:06] LABS: HCV Quant. RNA PCR HCV Not Detected IU/mL (.)
== END ==
PROVIDERS: Family Provider Internal Medicine; PCP Internal Medicine; Visit Provider Internal Medicine Gastroenterology
DX: B19.20 Unspecified viral hepatitis C without hepatic coma (principal)
CPT/HCPCS: 36415; 87522

== ENCOUNTER → 2017-10-22 09:12 | Outpatient (CLI) | payer MEDICARE, OTHER, SELFPAY ==
[2017-10-22 10:56] LABS: Magnesium 2.2 mg/dL (1.6-2.6)
[2017-10-23 09:04] LABS: PTHIN 55.3 pg/mL (18.4-80.1)
== END ==
PROVIDERS: Family Provider Internal Medicine; PCP Internal Medicine; Visit Provider Internal Medicine Endocrinology, Diabetes & Metabolism
DX: E83.42 Hypomagnesemia (principal); N20.0 Calculus of kidney; M81.0 Age-related osteoporosis without current pathological fracture
CPT/HCPCS: 36415; 83735; 83970

== ENCOUNTER → 2017-10-28 07:21 | Outpatient (CLI) | payer MEDICARE, OTHER, SELFPAY | PROVIDERS: Family Provider Internal Medicine; PCP Internal Medicine; Visit Provider Internal Medicine Endocrinology, Diabetes & Metabolism | DX: E83.42 Hypomagnesemia (principal); N20.0 Calculus of kidney; M81.0 Age-related osteoporosis without current pathological fracture | CPT/HCPCS: 81050 ==

== ENCOUNTER → 2017-12-02 10:30 | Outpatient (CLI) | payer MEDICARE, OTHER, SELFPAY ==
[2017-12-02 12:42] LABS: Hemoglobin A1c 5.7 % (4.2-6.3)
[2017-12-02 13:31] LABS: Estradiol 14.9 pg/mL; Free T3 3.1 pg/mL (2.18-3.98); T4 Free Direct 0.77 ng/dL (0.76-1.46); Thyroid Stim Hormone (TSH) 2.34 uIU/mL (0.358-3.74)
[2017-12-03 05:07] LABS: DHEA Sulfate 65.4 ug/dL (20.4-186.6)
[2017-12-03 09:47] LABS: Thyroid Peroxidase AB 8 IU/mL (0-34)
== END ==
LOC: WOBLAB 10:33 → LABSPEC 10:36
PROVIDERS: Visit Provider Obstetrics & Gynecology
DX: R68.82 Decreased libido (principal); Z79.899 Other long term (current) drug therapy
CPT/HCPCS: 82533; 82627; 82670; 83036; 84144; 84403; 84439; 84443; 84481; 86376; 82626

== ENCOUNTER → 2018-01-15 10:05 | Outpatient (CLI) | payer MEDICARE, OTHER, SELFPAY ==
[2018-01-18 03:07] LABS: HCV Quant. RNA PCR HCV Not Detected IU/mL (.)
== END ==
PROVIDERS: Family Provider Internal Medicine; PCP Internal Medicine; Referring Provider Internal Medicine Gastroenterology; Visit Provider Internal Medicine Gastroenterology
DX: B19.20 Unspecified viral hepatitis C without hepatic coma (principal)
CPT/HCPCS: 36415; 87522

== ENCOUNTER 2018-03-07 09:00 | Outpatient (RCR) | payer MEDICARE, OTHER, SELFPAY ==
--- NOTE | 2018-01-28 09:26 | HP.PTEVAL ---
Patient's Visit Information MARY JO RÍOS is a 72 year old F referred to Physical Therapy by Anthony Polo MD with a diagnosis of Knee OA. Date of Evaluation: 01/28/18 Physical Therapist: Chhaya Ruelas - Visit Plan Frequency: 2-3x /Week Duration: 3 Weeks Plan: Focus on LE and core s/s - Subjective Subjective: About 2 years ago she had surgery for torn meniscus on the left- did therapy before and had the surgery- greatly improved. In the following 2 years she has been in a few times to the MD Dr. Polo in [place]- and has had injections- the last one was 2 weeks ago and that has helped a lot. Before the injection she had to use her arms to push out of a chair and then walk immediatly. Thinks there maybe more to strengthen the knee. Down the road she is looking as a knee replacement. Still feels that she has a limp- at the end of the day her legs are tired and sore. Feels thats he is 50% better with injections. Injections in the past have helped for 6-9 months. Pain is located in the front of the knee- no radiating pain. Agg: getting up from sitting or getting out of the car. Best: 0/10 Eases: rest. Sleep: not disturbed. Has a lot of equiptment in the basement of her home. Does not have silver sneakers. Does have N/T in bilateral LE- has not changed- has done PT for it. Very active- jackie chung and she feels limited this year. x-rays: OA PMhx: ERCP, osteopenia Meds: indepomide - Objective Posture: FH, RS- can correct with verbal cues. Gait: slightly deviated- shortened stride length and varus of bilateral LE- mild hip drop. Stairs: asc/desc 8 recip with no HR- decreased control with descent. SLS: 4 seconds bilaterally then requires UE A. Hr/TR: able without incidence. Palpation: not tender. ROM: left: 10-120 Right: 0-120. Strength: ankle: 5/5, Knee: 4+/5, Hip: 4/5 throughout Core: fair. Special Test: Leg Length: WNL, Pelvic alignment: WNL - Goals Goal 1:: Patient will be I with HEP and progression Goal Time Frame: 4-6 Weeks Goal 2:: Patient will ambulate >300 feet with a normalized gait pattern Goal Time Frame: 4-6 Weeks Goal 3:: Patient will demo 5/5 strength in LE Goal Time Frame: 4-6 Weeks Goal 4:: Patient will maintain proper posture to tx session to demo increased core s/s. Goal Time Frame: 4-6 Weeks - Rehabilitation Potential Physical Therapy Diagnosis: Patient presents with hypomobility- she has decreased ROM, strength, flexibility and muscular endurance leading to abnormal gait and increased pain with ADL's Rehabilitation Potential: Fair - Anticipated Interventions Patient/Client Instruction: Educate patient on: Benefits of Fitness Program Therapeutic Exercise to Include: Strength training, Endurance training, Balance training, Agility training, Body mechanics, Postural training, Flexibilty training, Dynamic Lumbar Stabilization For the Purpose of:: To improve muscle performance and motor function TENS: Yes Cryotherapy (ice pack, ice massage): Yes Thermo therapy (hot pack): Yes Ultrasound (thermal/non thermal): Yes For the Purpose of:: To decrease pain Thank you for the opportunity to evaluate your patient. For Medicare and Medicare HMO plans, please review the plan of care and approve it. It will need to be FAXED BACK to us at [phone] for Medicare purposes. Please let me know if there are questions or concerns regarding this plan of care. Physician Signature: Date:
--- NOTE | 2018-02-21 08:54 | HP.PTREVAL ---
Anthony Polo MD, It has been my pleasure to treat MARY JO RÍOS over the last 10 visits for Knee OA. Please see the progress note below for an update on the physical therapy plan of care! Subjective: Patient reports that she is better- she is able to get up off a chair better without using her arms. When she use to get into bed pulling her leg in it was hard to get the leg into bed and mildly painful. Overall walking is better and she feels stronger. Doesn't think about moving as much. Objective/Function: Posture: good throughout Gait: no deviation noted Stairs: asc/desc 8 recip with no HR- good control. SLS: 5 seconds bilaterally then requires UE A. Hr/TR: able without incidence. Palpation: not tender. ROM: left: 5-120 Right: 0-120. Strength: ankle: 5/5, Knee: 5/5, Hip: 4+/5 throughout Core: fair plus. Special Test: Leg Length: WNL, Pelvic alignment: WNL. Sit to cut off machine unloader 30 sec x14 Plan Plan: Cont 3x a week for 2 weeks- focus on machines for I HEP Goals Goal 1:: Patient will be I with HEP and progression Goal Time Frame: 4-6 Weeks Goal Progress: Progressing Goal 2:: Patient will ambulate >300 feet with a normalized gait pattern Goal Time Frame: 4-6 Weeks Goal Progress: Goal Met Goal 3:: Patient will demo 5/5 strength in LE Goal Time Frame: 4-6 Weeks Goal Progress: Progressing Goal 4:: Patient will maintain proper posture to tx session to demo increased core s/s. Goal Time Frame: 4-6 Weeks Goal Progress: Progressing Anticipated Interventions Patient/Client Instruction: Educate patient on: Benefits of Fitness Program Therapeutic Exercise to Include: Strength training, Endurance training, Balance training, Agility training, Body mechanics, Postural training, Flexibilty training, Dynamic Lumbar Stabilization For the Purpose of:: To improve muscle performance and motor function TENS: Yes Cryotherapy (ice pack, ice massage): Yes Thermo therapy (hot pack): Yes Ultrasound (thermal/non thermal): Yes For the Purpose of:: To decrease pain Please do not hesitate to contact me at [phone] by phone or if you have questions or concerns regarding this new plan of care! Sincerely, Chhaya Ruelas DPT
--- NOTE | 2018-03-07 09:28 | HP.PTDCSUM ---
HP - PT D/C Summary It has been my pleasure to treat MARY JO RÍOS under orders from Anthony Polo MD, for the diagnosis of Knee OA for a total of 14 visit(s). Discharge Date: Please see the following information for a summary of their discharge status. - Subjective Subjective: Ready to be I with HEP- still has slight twinges but other than that feels great- thinks therapy really helped - Overall Improvement % Improvement: 75 - Objective Objective/Function: Patient was able to complete without incidence. She is improving on setting up the machines I-PT feels confident she will be prepared for d/c next visit. - Goals Goal 1:: Patient will be I with HEP and progression Goal Progress: Goal Met Goal 2:: Patient will ambulate >300 feet with a normalized gait pattern Goal Progress: Goal Met Goal 3:: Patient will demo 5/5 strength in LE Goal Progress: Goal Met Goal 4:: Patient will maintain proper posture to tx session to demo increased core s/s. Goal Progress: Goal Met - Plan Plan: Discharge to HEP - D/C Information If there are questions or concerns regarding this patient's physical therapy, please feel free to call me at [phone]. Thank you for the referral of this patient. Sincerely, MARIA A ClarosT
== END 2018-03-07 19:00 | disposition home or self-care (01) ==
LOC: PT 09:00
PROVIDERS: Family Provider Internal Medicine; PCP Internal Medicine; Referring Provider Orthopaedic Surgery; Visit Provider Orthopaedic Surgery
DX: M17.0 Bilateral primary osteoarthritis of knee (principal)
CPT/HCPCS: 97110; 97161; 97164; 97530

== ENCOUNTER → 2018-04-22 11:26 | Outpatient (CLI) | payer MEDICARE, OTHER, SELFPAY ==
--- NOTE | 2018-04-22 11:32 | RAD_ITS ---
STUDY: X-RAY - PELVIS AND RIGHT HIP REASON FOR EXAM: Female, 72 years old. Pain TECHNIQUE: Three views of the pelvis and hip were obtained. COMPARISON: April 26, 2017 FINDINGS: The bowel gas pattern is unremarkable. The soft tissues are unremarkable. There are mild degenerative changes in the lower lumbar spine. The visualized iliac wings, sacroiliac joints and sacrum are unremarkable. No abnormalities are seen in the visualized superior and inferior pubic rami. Normal appearing pubic symphysis. The visualized ischial tuberosities are unremarkable. The proximal femur shows no significant abnormalities. The acetabulum shows no significant abnormalities. There is mild articular joint space narrowing of the hip. RAD/HIP, UNI W/ Pelvis 2-3 Views IMPRESSION: Mild degenerative changes are again seen in the right hip. Mild degenerative changes are again seen in the lower lumbar spine. Electronically Signed: Yudith Junior MD at 14:39 EST , Service support ,
== END ==
PROVIDERS: Family Provider Internal Medicine; PCP Internal Medicine; Visit Provider Internal Medicine
DX: M25.551 Pain in right hip (principal)
CPT/HCPCS: 73502

== ENCOUNTER → 2018-05-05 12:29 | Outpatient (CLI) | payer SELFPAY ==
--- NOTE | 2018-05-05 12:33 | CT_ITS ---
STUDY: CT CHEST WITHOUT CONTRAST REASON FOR EXAM: Female, 72 years old. Abnormal EKG. Calcium scoring examination. Radiological over read examination. RADIATION DOSAGE (If Supplied By Facility): CTDIvol = ( 12.19 ) mGy, DLP = ( 219.42 ) mGycm TECHNIQUE: Transaxial imaging was performed without the administration of intravenous contrast material. Individualized dose optimization techniques were used for this CT. COMPARISON: None. FINDINGS: Right breast implant is seen. Mild increased markings at the lung bases suggestive of bibasilar atelectasis and/or scarring. There is no demonstrated pleural abnormality. There are calcifications of the coronary arteries. There are multiple small lymph nodes within the mediastinum, which are normal in size and morphology most compatible with reactive lymph hyperplasia. Normal hilar regions. Normal unenhanced pulmonary arteries. Normal aorta arch and descending thoracic aorta. Normal osseous structures. There is no demonstrated abnormality of the visualized upper abdomen. CT/Limited Chest CT w/CCTA IMPRESSION: Coronary artery calcification. Electronically Signed: Filiberto Medellin, at 14:12 EST , Service support ,
[2018-05-05 12:53] VITALS: BP 140/75; PULSE 68; RESP 18; O2SAT 100; BMI 22.9
--- NOTE | 2018-05-05 17:16 | CA.SCORE ---
Calcium Scoring Date of Study:: 05/05/18 Coronary Calcium Scoring: Coronary calcium scoring. High-resolution computed tomographic imaging of the chest was performed on 05/05/2018 with particular attention paid to the coronary arteries. Images from the examination were analyzed for the presence and extent of coronary artery calcification using the coronary calcium quantification software. The patient tolerated the procedure well and there were no complications. The results of the coronary calcification analysis are provided below. Coronary artery Left main score 0 Left anterior descending artery score 0 Left circumflex artery score 0 Right coronary artery score 0 Total Agaston score 0. The above is suggestive of a 0 percentile ranking. It suggests minimal to no significant atherosclerotic plaquing.
== END ==
PROVIDERS: Family Provider Internal Medicine; PCP Internal Medicine; Referring Provider Internal Medicine; Visit Provider Internal Medicine
DX: R94.31 Abnormal electrocardiogram [ECG] [EKG] (principal)
CPT/HCPCS: 75571; 76380

== ENCOUNTER 2018-05-22 09:30 | Outpatient (RCR) | payer MEDICARE, OTHER, SELFPAY ==
[2018-05-05 12:53] VITALS: BMI 22.9
--- NOTE | 2018-05-06 13:47 | HP.PTEVAL ---
Patient's Visit Information MARY JO RÍOS is a 72 year old F referred to Physical Therapy by Donna Alaniz DO with a diagnosis of Right hip pain. 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 Insidious onset. Agg: standing immediately. Worst: 5/10 Best: 0/10 Eases: sitting down. Pain goes away immediately. Pain is located on the greater troch- when she sits for long periods she gets numbness down the right leg to the knee. The numbness is not new. Describes the pain as ?ugh? more sharp pains but then it goes away once she is moving. X-rays taken by MD- show mild arthritis. Does have numbness in her toes but again this is not new- and blood flow is good. No limitations just annoying. Sleep: not disturbed- side sleeper. PMHx/Meds: no changes since last time she was here. - Objective Posture: FH, RS- does correct with vc's Gait: no deviation noted Stairs: asc/desc 8 recip with no HR- good control. SLS: 2 seconds bilaterally then requires UE A. Hr/TR: able without incidence. Palpation: tender along greater troch on the right and into the gluts and down the IT Band. ROM:WNL- pain with end range IR. Strength: ankle: 5/5, Knee: 5/5, Hip: 4+/5 except IR/ER: 4/5 throughout Core: fair. Special Test: Leg Length: WNL, Pelvic alignment: WNL- Figure 4: increases discomfort. Flex: HS: mild - Goals Goal 1:: Patient will be I with HEP and progression Goal Time Frame: 4-6 Weeks Goal 2:: Patient will maintain proper posture t/o tx session to demo increased core s/s. Goal Time Frame: 4-6 Weeks Goal 3:: Patient will report 0/10 pain Goal Time Frame: 4-6 Weeks Goal 4:: Patient will demo 5/5 strength in LE Goal Time Frame: 4-6 Weeks - Rehabilitation Potential Physical Therapy Diagnosis: Patient presents with hypomobility- she has decreased strength and muscular endurance leading to poor posture and increased pain with ADL's. Rehabilitation Potential: Fair - Anticipated Interventions Patient/Client Instruction: Educate patient on: Benefits of Fitness Program Therapeutic Exercise to Include: Strength training, Endurance training, Balance training, Agility training, Body mechanics, Postural training, Flexibilty training, Gait and locomotor training, Dynamic Lumbar Stabilization For the Purpose of:: To improve muscle performance and motor function TENS: Yes Other electric stimulation: Yes Cryotherapy (ice pack, ice massage): Yes Ultrasound (thermal/non thermal): Yes For the Purpose of:: To decrease pain Thank you for the opportunity to evaluate your patient. For Medicare and Medicare HMO plans, please review the plan of care and approve it. It will need to be FAXED BACK to us at [phone] for Medicare purposes. For Medicare only, by signing this I certify the plan of care. Please let me know if there are questions or concerns regarding this plan of care. Physician Signature: Date:
--- NOTE | 2018-07-03 10:40 | HP.PTDCSUM ---
HP - PT D/C Summary It has been my pleasure to treat MARY JO RÍOS under orders from Donna Alaniz DO, for the diagnosis of Right hip pain for a total of 5 visit(s). Discharge Date: Please see the following information for a summary of their discharge status. - Subjective Subjective: Patient reports the hip is better but her shoulder is bothering her - Overall Improvement % Improvement: 90 - Objective Objective/Function: Patient was able to complete without incidence. No increase in s/s but does report fatigue. Required verbal and tactile cueing to perform exercises with appropriate technique jazmyn the RDL's- moderate trunk rotation. - Goals Goal 1:: Patient will be I with HEP and progression Goal 2:: Patient will maintain proper posture t/o tx session to demo increased core s/s. Goal 3:: Patient will report 0/10 pain Goal 4:: Patient will demo 5/5 strength in LE - Plan Plan: Cont with POC - D/C Information If there are questions or concerns regarding this patient's physical therapy, please feel free to call me at [phone]. Thank you for the referral of this patient. Sincerely, Chhaya Ruelas DPT
== END 2018-05-22 19:00 | disposition home or self-care (01) ==
LOC: PT 09:30
PROVIDERS: Family Provider Internal Medicine; PCP Internal Medicine; Referring Provider Internal Medicine; Visit Provider Internal Medicine
DX: M25.551 Pain in right hip (principal)
CPT/HCPCS: 97110; 97161

== ENCOUNTER → 2018-05-22 10:10 | Outpatient (CLI) | payer MEDICARE, OTHER, SELFPAY ==
[2018-05-05 12:53] VITALS: BMI 22.9
--- NOTE | 2018-05-22 10:16 | RAD_ITS ---
STUDY: X-RAY - LEFT SHOULDER REASON FOR EXAM: Pain, no injury. TECHNIQUE: 4 view(s) of the shoulder. COMPARISON: None. FINDINGS: Normal glenohumeral articulation. There is acromioclavicular arthrosis. Normal acromion. Normal humeral head and visualized proximal humerus. The soft tissue structures are unremarkable. Normal visualized pulmonary apex. RAD/Shoulder min 2 Views IMPRESSION: Acromioclavicular arthrosis. Electronically Signed: Frankie Steven MD at 16:01 EDT Tel , Service support ,
== END ==
PROVIDERS: Family Provider Internal Medicine; PCP Internal Medicine; Referring Provider Internal Medicine; Visit Provider Internal Medicine
DX: M25.512 Pain in left shoulder (principal)
CPT/HCPCS: 73030; 97110

== ENCOUNTER → 2018-09-10 09:41 | Outpatient (CLI) | payer MEDICARE, OTHER, SELFPAY ==
[2018-05-05 12:53] VITALS: BMI 22.9
[2018-09-10 12:00] LABS: Vitamin D,25 Hydroxy 57.6 ng/mL (29.95-100.01)
[2018-09-10 12:04] LABS: Magnesium 2.4 mg/dL (1.6-2.6); Thyroid Stim Hormone (TSH) 1.74 uIU/mL (0.358-3.74)
== END ==
PROVIDERS: Family Provider Internal Medicine; PCP Internal Medicine; Referring Provider Internal Medicine Endocrinology, Diabetes & Metabolism; Visit Provider Internal Medicine Endocrinology, Diabetes & Metabolism
DX: E04.9 Nontoxic goiter, unspecified (principal); E55.9 Vitamin D deficiency, unspecified; E83.42 Hypomagnesemia
CPT/HCPCS: 36415; 82306; 83735; 84443

== ENCOUNTER → 2018-09-23 06:26 | Outpatient (CLI) | payer MEDICARE, OTHER, SELFPAY ==
[2018-05-05 12:53] VITALS: BMI 22.9
--- NOTE | 2018-09-23 06:35 | MRI_ITS ---
STUDY: MRI ABDOMEN WITH AND WITHOUT CONTRAST REASON FOR EXAM: Female, 72 years old. TECHNIQUE: Standardized fat and water weighted pulse sequences were obtained in all 3 orthogonal planes post contrast administration. 14 IV Dotarem was administered for the contrast portion of the examination. COMPARISON: None. FINDINGS: Visualized lung bases are unremarkable. Normal contours of the liver. No significant signal dropout on out of phase imaging. No hepatic masses. Elongation of the right hepatic lobe is stable. No abnormal contrast enhancement. Normal gallbladder and extrahepatic biliary system. Normal spleen. Normal contours of the pancreas. No solid or cystic masses are seen prior to or following IV contrast. A 7 mm cystic lesion evident on 12/17/2016 MRI is not identified on the current exam. Normal bilateral adrenal glands. Slightly high T2 and low T1 signal intensity 1.1 cm lesion of the posterior right kidney is compatible with simple cyst seen on prior CT of 09/03/2017. No hydronephrosis of either kidney on the current exam. Small subcentimeter nonenhancing left renal cysts are also identified. The visualized hollow viscus structures are unremarkable. There is a small duodenal diverticulum. No retroperitoneal adenopathy. No bone marrow edema. MRI/MRI Abd WITH and W/O Contrast IMPRESSION: 1. No pancreatic mass or cystic lesion. 2. Elongation of the right hepatic lobe. No hepatic masses. 3. Bilateral simple (Bosniak 1) renal cysts, stable. Electronically Signed: Alonso Adkins MD at 8:43 EDT , Service support ,
== END ==
PROVIDERS: Family Provider Internal Medicine; PCP Internal Medicine; Referring Provider Internal Medicine; Visit Provider Internal Medicine
DX: K86.2 Cyst of pancreas (principal)
CPT/HCPCS: 74183; A9575

== ENCOUNTER → 2018-10-10 07:36 | Outpatient (CLI) | payer MEDICARE, OTHER, SELFPAY ==
[2018-05-05 12:53] VITALS: BMI 22.9
--- NOTE | 2018-10-10 07:40 | BI_ITS ---
MAMMOGRAPHY - UNILATERAL SCREENING: LEFT BREAST REASON FOR EXAM: Female, 72 years old. Routine annual screening examination (unilateral). PERTINENT HISTORY: Personal history of breast cancer. Prior right mastectomy and chemotherapy. TECHNIQUE: Digital unilateral breast lanny (3D mammographic acquisition) in the CC and MLO projections. 2-D mediolateral oblique (MLO) and craniocaudad (CC) views of both breasts were obtained. CAD: Full Field Digital Mammography with Computer Added Detection was performed. COMPARISON: Comparison is made with prior study dated September 30, 2017 and September 27, 2016. FINDINGS: Breast Composition: The breasts are heterogeneously dense, which may obscure small masses. There are no dominant masses or suspicious calcifications. No other significant abnormalities are identified. There has been no significant change since the prior study. BI/SCREEN MAMM (CAD) W/LANNY UNI L IMPRESSION: Stable unilateral screening mammogram. Yearly follow-up mammogram recommended. (A) ASSESSMENT CATEGORY: BIRADS Category 1: Negative. A letter regarding these results will be sent to the patient by the facility within 30 days. Approximately 10% of breast cancers are not detected by mammography. A normal mammogram should not delay biopsy of a clinically suspicious abnormality. [id number] Electronically Signed: Filiberto Medellin, at 9:26 EDT , Service support ,
--- NOTE | 2018-10-10 07:40 | US_ITS ---
STUDY: ABDOMINAL ULTRASOUND - RIGHT UPPER QUADRANT REASON FOR VISIT: Female, 72 years old. History of fatty infiltration of the liver. TECHNIQUE: Ultrasound evaluation of the right upper quadrant was performed with real-time and static estrada-scale imaging. TECHNICAL QUALITY: Adequate. COMPARISON: None. FINDINGS: Liver: The liver measures 14.9 cm. There is increased echogenicity consistent with mild fatty infiltration. The bile ducts are within normal limits. There is hepatic color flow. The direction of portal flow is hepatopetal. There is no demonstrated mass lesion. Gallbladder: Normal distended gallbladder. The gallbladder wall measures 1.6 mm. There is a negative sonographic Ferreira's sign. There is no pericholecystic fluid. There are no gallstones. Common Bile Duct (C.B.D.): The common bile duct measures 3.0 mm. Pancreas: Normal size of the head, body and tail of the pancreas. There is normal echogenicity of the pancreas. There is no demonstrated pancreatic mass or cyst. Right Kidney: Normal size of the right kidney. The right kidney measures 10.8 cm x 5 cm x 4.2 cm. Normal renal cortex. The right cortex measures 1.1 cm. There is no demonstrated renal mass or cyst. There is no right hydronephrosis. US/Liver IMPRESSION: Mild degree of fatty infiltration of the liver. Electronically Signed: Filiberto Medellin, at 15:03 EDT , Service support ,
== END ==
PROVIDERS: Family Provider Internal Medicine; PCP Internal Medicine; Referring Provider Internal Medicine; Visit Provider Internal Medicine
DX: Z12.31 Encounter for screening mammogram for malignant neoplasm of breast (principal); K76.0 Fatty (change of) liver, not elsewhere classified; Z85.3 Personal history of malignant neoplasm of breast; Z90.11 Acquired absence of right breast and nipple
CPT/HCPCS: 76705; 77061; 77067; G0279

== ENCOUNTER → 2019-08-18 | Outpatient (CLI) | payer MEDICARE, OTHER, SELFPAY ==
[2018-05-05 12:53] VITALS: BMI 22.9
[2019-08-18 13:18] LABS: Microalbumin,Random Urine 8.2 mg/L (NO RANGE EST.); Microalbumin:Creatinine Ratio 11.3 mg/g CRE (<30 mg/g CRE)
== END | disposition home or self-care (01) ==
LOC: LABSPEC 12:42
PROVIDERS: PCP Internal Medicine; Referring Provider Internal Medicine; Visit Provider Internal Medicine
DX: R73.01 Impaired fasting glucose (principal)
CPT/HCPCS: 82043; 82570

== ENCOUNTER 2019-08-19 17:43 | Inpatient (IN) | payer MEDICARE, OTHER, SELFPAY ==
[2018-05-05 12:53] VITALS: BMI 22.9
[2019-08-19] VITALS (8 sets, daily range): BP systolic 141–155; BP diastolic 49–86; PULSE 91–111; RESP 16–22; TEMP 36.9–37.7; O2SAT 94–96; BMI 25.0; BMI 23.6
--- NOTE | 2019-08-19 18:04 | EKG12_ITS ---
Test Reason : CELLULITIS Blood Pressure : / mmHG Vent. Rate : 094 BPM Atrial Rate : 094 BPM P-R Int : 144 ms QRS Dur : 092 ms QT Int : 358 ms P-R-T Axes : 054 061 047 degrees QTc Int : 447 ms Normal sinus rhythm with sinus arrhythmia Consider Left ventricular hypertrophy Abnormal ECG Confirmed by JOSE G PUCKETT, INOCENCIO ([id number]), photographic editor XUAN MONTGOMERY ([id number]) on 08/21/2019 11:16:09 AM Referred By: BREANA Confirmed By:INOCENCIO ARAIZA MD
--- NOTE | 2019-08-19 18:59 | ED.VIS.GEN ---
History of Present Illness Chief Complaint: Cellulitis Detail of Chief Complaint: This right upper extremity that started today Informant: Patient, Significant Other Onset: Today Context: Sudden Onset Timing: Continuous Quality: Erythema and red streak right upper extremity Location: Right hand, forearm and arm Current Severity: Moderate Maximum Severity: Moderate Worsened by: Infection Relieved by: Nothing Associated Symptoms: History of mastectomy on the right and cellulitis right upper extremity Narrative: 73-year-old [id number] woman who presents with rash right upper extremity that started within the last 24 hours. She does report shaking chills. She denies fever. She states she had cellulitis years ago same extremity. She denies headache, visual, ocular auditory symptoms. Denies trouble with speech or swallowing. She denies cardiac respiratory symptoms. She denies urologic symptoms. Only GI symptom is nausea. She is on no medication. She has no allergies to medication Prior similar symptoms: Yes Recent Illness/Hospitalization: No - Past Medical History (1) History of breast cancer in adulthood Status: Resolved Past Medical History - Allergies and Home Meds Allergies/Adverse Reactions: Allergies cat pelt standardized allergenic ex [Cat Pelt Std Extract] Adverse Reaction (Verified 02/07/16 14:20) Other Primary Care Physician: Donna Alaniz DO [Primary Care Provider] - Prior records reviewed: Yes Surgical History: - - Mastectomy right Lives: Spouse/ Significant Other Smoking Status: Never smoker Alcohol: Rare Drugs: None Review of Systems General: Reports: Chills. Denies: Fever, Malaise, Subjective, Sweats, Weight loss, - Eyes: Denies: Visual changes - bilaterally, Diplopia ENT: Denies: Rhinorrhea, Sore throat Cardiovascular: Denies: Chest pain, Palpitations Respiratory: Denies: Dyspnea, Cough, Dyspnea on exertion Gastrointestinal: Denies: Abdominal pain, Nausea, Vomiting, Diarrhea, Melena, Hematochezia Genitourinary: Denies: Dysuria, Hematuria, Frequency Musculoskeletal: Reports: Swelling. Denies: Myalgias, Arthralgias, Neck pain, Back pain, Extremity Pain Skin: Reports: Rash. Denies: Abscess, Abrasions, Wounds Neurological: Denies: Headache, Weakness, Numbness Hematologic: Denies: Easy bruising, Easy bleeding Physical Exam Vital Signs/Narrative: Vital Signs Temp Pulse Resp BP Pulse Ox 08/19/19 17:44 98.5 F 111 H 16 155/49 H 96 Inital Vital Signs reviewed: Yes General: Well nourished, Well developed, No Acute Distress Head: Normocephalic, Atraumatic Eyes: Perrl, EOMI ENT: Moist mucous membranes, No rhinorrhea Neck: Supple, Nontender Cardiovascular: Regular rate, Regular rhythm, No murmurs Respiratory: No distress, CTA bilaterally, Chest nontender Abdomen: Soft, Nontender, Nondistended, Normal bowel sounds Back: Nontender, Normal Inspection Extremities: Nontender, No edema Skin: Normal color, No rash, Rash - Has cellulitis of the right hand, the entire right forearm and distal portion of the right arm with lymphangitis to the axilla and axillary nodes. There is no tenderness to palpation. There is no crepitus or subcutaneous air appreciated. Neurological: Alert, Oriented x3, Cranial nerves II-XII grossly intact, Normal Strength, Normal Sensation Psychological: Normal affect, Normal Mood Diagnostic/Tx/Re-eval Laboratory Results 08/19/19 08/19/19 08/19/19 19:00 19:00 19:00 WBC 13.7 H RBC 4.61 Hgb 14.2 Hct 42.7 MCV 92.6 MCH 30.8 MCHC 33.3 RDW Std Deviation 42.9 RDW Coeff of Martha 12.7 Plt Count 272 MPV 9.8 Immature Gran % (Auto) 0.400 Neut % (Auto) 90.7 H Lymph % (Auto) 4.9 L [place] % (Auto) 3.8 Eos % (Auto) 0.1 Baso % (Auto) 0.1 Absolute Neuts (auto) 12.5 H Absolute Lymphs (auto) 0.68 L Nucleated RBC % 0 PT 11.9 INR 0.9 APTT 26.3 Sodium 139 Potassium 2.7 L* Chloride 101 Carbon Dioxide 31.0 Anion Gap 7 BUN 15 Creatinine 0.78 Estim Creat Clear Calc 49.79 Est GFR (MDRD) Af Amer 92 Est GFR (MDRD) Non-Af 76 BUN/Creatinine Ratio 19.2 Glucose 114 H Lactic Acid Calcium 9.7 Total Bilirubin 0.80 AST 29 ALT 30 Alkaline Phosphatase 64 Total Protein 7.8 Albumin 4.4 Globulin 3.4 Albumin/Globulin Ratio 1.3 08/19/19 19:00 WBC RBC Hgb Hct MCV MCH MCHC RDW Std Deviation RDW Coeff of Martha Plt Count MPV Immature Gran % (Auto) Neut % (Auto) Lymph % (Auto) [place] % (Auto) Eos % (Auto) Baso % (Auto) Absolute Neuts (auto) Absolute Lymphs (auto) Nucleated RBC % PT INR APTT Sodium Potassium Chloride Carbon Dioxide Anion Gap BUN Creatinine Estim Creat Clear Calc Est GFR (MDRD) Af Amer Est GFR (MDRD) Non-Af BUN/Creatinine Ratio Glucose Lactic Acid 1.3 Calcium Total Bilirubin AST ALT Alkaline Phosphatase Total Protein Albumin Globulin Albumin/Globulin Ratio She received 40 mEq of potassium p.o. Patient has sepsis. She does not meet criteria for severe sepsis. - EKG Initial EKG Interpretation: Sinus Rhythm - Ventricular rate 94. OH interval 144 ms. QRS duration 92 ms. QT duration 358 ms. Isabella is normal. There is evidence of LVH with repolarization changes. There is also artifact. - Medical Decision Making No cellulitis. Because of the rapidness of onset and progression concern for strep infection. Since there is history of staph infection in the past she was treated with Unasyn and vancomycin. Sepsis order set was initiated. ED Disposition - Plan for ED Patient: Disposition: Acute Care Hospital [facility] Diagnosis: Cellulitis of right upper extremity, Sepsis, Hypokalemia Referrals: Donna Alaniz DO [Primary Care Provider] -
[2019-08-19 19:16] LABS: Absolute Lymphocyte Count 0.68 X10^3/uL (0.83-4.51); Absolute Neutrophil Count 12.5 X10^3/uL (2.0-7.7); Basophil# 0.02 X10^3/uL; Basophil% 0.1 % (0-1); Eosinophil# 0.01 X10^3/uL; Eosinophils% 0.1 % (0-5); Hematocrit 42.7 % (37-47); Hemoglobin 14.2 g/dL (12.0-15.0); Lymphocyte # 0.68 X10^3/ul (4.0); Lymphocyte % 4.9 % (19-41); Mean Corp Hgb Conc 33.3 g/dL (32-36); Mean Corpuscular Hgb 30.8 pg (27.0-32.0); Mean Corpuscular Volume 92.6 fL (81-99); Mean Platelet Vol. 9.8 fl (6.2-12.0); Monocyte# 0.52 X10^3/uL; Monocyte% 3.8 % (0-10); NRBC Flagged by Analyzer 0 % (0-5); Neutrophil # 12.45 X10^3/uL (2.7-7.7); Neutrophil % 90.7 % (47-70); Platelet Count 272 K/mm3 (150-450); RBC Distribution Width CV 12.7 % (11.6-14.6); RBC Distribution Width SD 42.9 fl (35.1-43.9); Red Blood Count 4.61 M/mm3 (4.2-5.4); White Blood Count 13.7 K/mm3 (4.4-11.0)
[2019-08-19 19:26] LABS: International Normalized Ratio 0.9; Prothrombin Time (Protime)PT. 11.9 SECONDS (11.7-14.9)
[2019-08-19 19:27] LABS: Partial Thromboplast Time 26.3 Seconds (24.1-36.2)
[2019-08-19] MEDS: 0.9% Normal Saline 1,000 ML 999 ML IV (19:34)
[2019-08-19 19:45] LABS: Lactic Acid 1.3 mmol/L (0.4-1.9)
[2019-08-19 20:13] LABS: ALB/GLOB Ratio 1.3 RATIO (0.9-2.4); AST(SGOT) 29 U/L (15-37); Alanine Aminotransfer ALT/SGPT 30 U/L (13-56); Albumin, Serum 4.4 g/dL (3.2-5.0); Alkaline Phosphatase 64 U/L (45-117); Anion Gap 7 (5-15); BUN 15 mg/dL (7-18); BUN/Creat Ratio 19.2 RATIO (10-20); Calcium,Total 9.7 mg/dL (8.5-10.1); Chloride 101 mmol/L (98-107); Creatinine, Serum 0.78 mg/dL (0.55-1.02); EST Glomerular Filtration Rate 76 mL/min (>60); Est Glom Filt Rate - Afr Amer 92 mL/min (>60); Estimated Creatinine Clearance 49.79 ml/min; Globulin 3.4 g/dL (2.2-4.2); Glucose 114 mg/dL (74-106); Potassium 2.7 mmol/L (3.5-5.1); Protein, Total 7.8 g/dL (6.4-8.2); Sodium Level 139 mmol/L (136-145)
--- NOTE | 2019-08-19 21:10 | PCM.HP.STD ---
Problem List (1) History of breast cancer in adulthood Status: Resolved (2) Cellulitis of right upper extremity Status: Acute (3) Sepsis Status: Acute (4) Hypokalemia Status: Acute History of Present Illness Date of Admission: 08/19/19 Chief Complaint: Redness of right upper extremity. The patient is a 73 year old F with a significant history of right breast cancer status post mastectomy and chemotherapy who presented with redness of her right side. Symptoms started on the same day of presentation. Of note on the same day of presentation was her 53rd wedding anniversary. Her noticed that earlier in the day patient had malaise and anorexia. Later in the day patient noticed pain, burning, swelling, increased warmth and redness at her right upper extremities. Patient reports that in the past she has had an issue with lymph node draining from her right upper extremity; the same extremity where her mastectomy was done. Patient reported that in 1988 she had a cellulitis on her right upper extremity. Past Medical History Medical History: Medical History (Last Reviewed 08/19/19 @ 22:[address] Oswald Treviño MD) Breast cancer C50.919 Allergies cat pelt standardized allergenic ex [Cat Pelt Std Extract] Adverse Reaction (Verified 02/07/16 14:20) Other Home Medications: Ambulatory Orders Medication Instructions Recorded Indapamide 1.25 mg PO DAILY 04/03/13 Codeine/Butalbital/ASA/Caffein 1 each PO PRN PRN 05/04/13 [Fiorinal-Cod 68-28-543-40 Cap] Ergocalciferol [Vitamin D] 50,000 unit PO WE 05/04/13 Rizatriptan Benzoate [Maxalt] 5 mg PO DAILY PRN PRN 05/04/13 Potassium Chloride [K-Dur] 10 meq PO DAILY 02/07/16 Calcium Citrate/Vitamin D3 1 tab PO DAILY 08/19/19 [Calcium Citrate - Vit D Caplet] Multivit-Min/Iron/Folic/Lutein 1 tab PO DAILY 08/19/19 [Centrum Silver Women Tablet] Surgical History: appendectomy, - - Mastectomy right Lives: Spouse/ Significant Other Smoking Status: Former smoker - Smoked when she was a teenager Alcohol: Rare Drugs: None - *Family History Maternal History Items: - - Her mother was healthy and she at the age of 94. Paternal History Items: Heart Disease Review of Systems Constitutional: Denies: Chills, Fever - Subjective, Weight Change HEENT: Denies: Head Aches, Sinus Congestion, Sinus Drainage Cardiovascular: Denies: Chest Pain, Palpitations Respiratory: Denies: Cough, Shortness of breath at rest, Sputum production Gastrointestinal: Denies: Abdominal Pain, Nausea, Vomiting Genitourinary: Denies: Dysuria Musculoskeletal: Denies: Joint Pain, Joint Tenderness Skin: Reports: Skin Changes. Denies: Rash, Wounds Neurological: Denies: Numbness, Tingling, Focal weakness Psychiatric: Denies: Anxiety, Depression, Homicidal Ideations, Suicidal Ideations Hematologic/ Lymphatic: Denies: Easy Bruising, Easy Bleeding VTE Information - Inpt Only VTE Present on Admission: No VTE Mechan Device Prophylaxis: None VTE Pharm Prophylaxis ordered?: Yes Patient Problems: Active and Suspected Problems (Last Updated 08/19/19 @ 21:[address] Oswald Treviño MD) Cellulitis of right upper extremity (Acute) Sepsis (Acute) Hypokalemia (Acute) - Physical Exam Vitals/I&O's: Vital Signs Temp Pulse Resp BP Pulse Ox 99 F 98 22 H 151/82 H 94 08/19/19 20:58 08/19/19 20:58 08/19/19 20:58 08/19/19 20:58 08/19/19 20:58 Oxygen Delivery Method Room Air Weight: 74.843 kg Body Mass Index (BMI) 25.0 Intake and Output for Last 24 Hours 08/17/19 08/18/19 08/19/19 23:59 23:59 23:59 Intake Total 112 / 112 Balance 112 / 112 General: Alert, Oriented x3, Cooperative HEENT: Atraumatic, PERRLA, EOMI, Normocephalic Neck: Supple, No JVD, Negative Carotid Bruits Lungs: Clear to auscultation, Normal air movement, No rhonchi, No wheeze, No rales Cardiovascular: Regular Rhythm, Normal S1, Normal S2, No murmurs, Tachycardic Abdomen: Bowel Sounds Present, Soft, Non Tender Extremities: Capillary Refill Less than 3 Seconds, Edema - Right upper extremities., Tenderness - Right upper extremities Skin: - - Erythema and lymphangitic streaking of right upper extremities. Increased warmth of right upper extremity. Musculoskeletal: No Muscle Wasting, Tenderness - Right upper extremity Neurological: Cranial nerves II-XII grossly intact Psych/Mental Status: Normal Affect, Appropriate Laboratory Results 08/19/19 19:00: WBC 13.7 H, RBC 4.61, Hgb 14.2, Hct 42.7, MCV 92.6, MCH 30.8, MCHC 33.3, RDW Std Deviation 42.9, RDW Coeff of Martha 12.7, Plt Count 272, MPV 9.8, Immature Gran % (Auto) 0.400, Neut % (Auto) 90.7 H, Lymph % (Auto) 4.9 L, [place] % (Auto) 3.8, Eos % (Auto) 0.1, Baso % (Auto) 0.1, Absolute Neuts (auto) 12.5 H, Absolute Lymphs (auto) 0.68 L, Nucleated RBC % 0 08/19/19 19:00: PT 11.9, INR 0.9, APTT 26.3 08/19/19 19:00: Sodium 139, Potassium 2.7 L*, Chloride 101, Carbon Dioxide 31.0, Anion Gap 7, BUN 15, Creatinine 0.78, Estim Creat Clear Calc 49.79, Est GFR (MDRD) Af Amer 92, Est GFR (MDRD) Non-Af 76, BUN/Creatinine Ratio 19.2, Glucose 114 H, Calcium 9.7, Total Bilirubin 0.80, AST 29, ALT 30, Alkaline Phosphatase 64, Total Protein 7.8, Albumin 4.4, Globulin 3.4, Albumin/Globulin Ratio 1.3 08/19/19 19:00: Lactic Acid 1.3 Assessment/Plan All Active Problems (Last Updated 08/19/19 @ 21:[address] Oswald Treviño MD) History of breast cancer in adulthood (Resolved) Cellulitis of right upper extremity (Acute) Sepsis (Acute) Hypokalemia (Acute) The patient is a 73 year old F with a significant history of right breast cancer status post mastectomy and chemotherapy who presented with redness of her right side; malaise; and anorexia; burning, and increased warmth at the right upper extremities; and was also found to have tachycardia; tachypnea; leukocytosis. Sepsis secondary to right upper extremity cellulitis. Due to the prodrome of malaise and anorexia before her cellulitis symptoms started this likely secondary to Streptococcus. Patient received vancomycin and Unasyn at emergency department. Vancomycin and cefazolin ordered. If patient improves consider de-escalating antibiotics to only cefazolin since it is likely strep. Follow blood cultures. Review of emergency department labs showed lactic acid was 1.3. Trend CBC and BMP. Hypokalemia Presentation potassium was 2.7. Review of home records shows use of the diuretic indapamide. Likely hypokalemia secondary to indapamide. Hold indapamide. Received potassium p.o. supplementation at emergency department. Other further potassium IV and p.o.; and trend BMP. DVT prophylaxis Subcutaneous Lovenox. Inpatient E&M: 59430 Init Hosp L3
[2019-08-19] MEDS: Potassium Chloride 10mEq/100mL 10 MEQ/100 ML IV.SOLN. 100 MEQ IV BOLUS ×2 (21:59→22:56)
--- NOTE | 2019-08-19 22:55 | PCM.RX.CS ---
Consult Pharmacy has been consulted to manage selected antiobiotic: Vancomycin Type of Consult: New start Suspected Infection: Skin/Soft tissue Labs: Sodium 139 mmol/L (136-145) 08/19/19 19:00 Potassium 2.7 mmol/L (3.5-5.1) L* 08/19/19 19:00 Chloride 101 mmol/L (98-107) 08/19/19 19:00 Carbon Dioxide 31.0 mmol/L (21.0-32.0) 08/19/19 19:00 Anion Gap 7 (5-15) 08/19/19 19:00 BUN 15 mg/dL (7-18) 08/19/19 19:00 Creatinine 0.78 mg/dL (0.55-1.02) 08/19/19 19:00 Est GFR (MDRD) Af Amer 92 mL/min (>60) 08/19/19 19:00 Est GFR (MDRD) Non-Af 76 mL/min (>60) 08/19/19 19:00 BUN/Creatinine Ratio 19.2 RATIO (10-20) 08/19/19 19:00 Glucose 114 mg/dL (74-106) H 08/19/19 19:00 Weight used for dosin.4 kg Estimated Creatinine Clearance: 64.98 Goal Trough: 10-15 mcg/mL Pharmacy Plan for Drug Dosing: Pharmacy Service will continue to monitor and adjust dosing as required. Medications Vancomycin HCl () 500 mg in 100 mls @ 100 mls/hr IV Q12H MIKE Discontinued Medications Vancomycin HCl 1,750 mg/ (Sodium Chloride) 535 mls @ 250 mls/hr IV X1 ONE Stop: 08/19/19 20:38 Last Admin: 08/19/19 22:45 Dose: Infused Documented by: Follow-Up Labs: Trough Vancomycin Labs to be done on [date and time ordered]: 08/20 @ 1806
[2019-08-20] VITALS (9 sets, daily range): BP systolic 92–124; BP diastolic 58–77; PULSE 64–89; RESP 16–17; TEMP 36.8–37.7; O2SAT 95–97
[2019-08-20] MEDS: Potassium Chloride 10mEq/100mL 10 MEQ/100 ML IV.SOLN. 100 MEQ IV BOLUS ×2 (00:12→01:22)
[2019-08-20] MEDS: Cefazolin 2 GM in 0.9% Normal Saline 100 ML IV ×4 (00:14→21:30)
[2019-08-20] MEDS: Rizatriptan Benzoate 5 MG Tablet PO (05:59)
[2019-08-20 06:03] LABS: Absolute Lymphocyte Count 0.95 X10^3/uL (0.83-4.51); Absolute Neutrophil Count 9.8 X10^3/uL (2.0-7.7); Basophil# 0.02 X10^3/uL; Basophil% 0.2 % (0-1); Hematocrit 36.6 % (37-47); Lymphocyte # 0.95 X10^3/ul (4.0); Lymphocyte % 8.3 % (19-41); Mean Corp Hgb Conc 32.8 g/dL (32-36); Mean Corpuscular Hgb 30.7 pg (27.0-32.0); Mean Corpuscular Volume 93.6 fL (81-99); Mean Platelet Vol. 9.8 fl (6.2-12.0); Monocyte# 0.63 X10^3/uL; Monocyte% 5.5 % (0-10); NRBC Flagged by Analyzer 0 % (0-5); Neutrophil # 9.78 X10^3/uL (2.7-7.7); Neutrophil % 85.6 % (47-70); Platelet Count 216 K/mm3 (150-450); RBC Distribution Width CV 13.2 % (11.6-14.6); RBC Distribution Width SD 45.1 fl (35.1-43.9); Red Blood Count 3.91 M/mm3 (4.2-5.4); White Blood Count 11.4 K/mm3 (4.4-11.0)
[2019-08-20 06:22] LABS: Anion Gap 8 (5-15); BUN 10 mg/dL (7-18); BUN/Creat Ratio 16.5 RATIO (10-20); Calcium,Total 8.5 mg/dL (8.5-10.1); Chloride 103 mmol/L (98-107); Creatinine, Serum 0.61 mg/dL (0.55-1.02); EST Glomerular Filtration Rate 102 mL/min (>60); Est Glom Filt Rate - Afr Amer 124 mL/min (>60); Estimated Creatinine Clearance 49.79 ml/min; Glucose 131 mg/dL (74-106); Potassium 3.2 mmol/L (3.5-5.1); Sodium Level 137 mmol/L (136-145)
[2019-08-20] MEDS: Multivitamins,Ther W-Minerals Tablet 1 TABLET PO (08:48)
[2019-08-20] MEDS: Calcium Carb/Vitamin D 1 TABLET Tablet PO (08:48)
[2019-08-20] MEDS: Enoxaparin 40 MG/0.4 ML Syringe SC (08:48)
[2019-08-20] MEDS: Vancomycin IV 500 MG/100 ML BAG 100 MG IV (08:48)
--- NOTE | 2019-08-20 10:50 | CASEMGMT ---
RN CM Face to Face with patient for initial transition planning/care coordination assessment. RN CM introduced self and role at [facility]. Patient sitting in chair, alert and oriented. Patient willing to participate in assessment and is able to answer all questions appropriately. Care providers, pharmacy, and demographics verified. Patient wishes to discharge home, denies need for home health at this time. Patient states she has no further needs or concerns at this time. CM to follow for discharge planning needs that may arise. PCP: [facility] Specialists: [facility] Preferred [facility]: [facility] Prescription Benefit: yes Living Will/HPOA: yes, Maycol Padgett LNOK: Living Arrangements: Patient lives with in a 1 story home with 2 steps and railing to enter the home. Patient is independent at home. Transportation: self/ DME/HHC: Patient states she has walker at home. NO previous HHC or SNF. Disposition Plan: Patient to discharge home with family support and follow-up plans in place. Indigo RINCON, RN, CM
--- NOTE | 2019-08-20 11:43 | NURSING ---
copy of living will and healthcare POA placed on pt chart
--- NOTE | 2019-08-20 12:20 | PCM.PN.HOSP ---
Patient Problems: Active and Suspected Problems (Last Reviewed 08/19/19 @ 22:[address] Oswald Treviño MD) Cellulitis of right upper extremity (Acute) Sepsis (Acute) Hypokalemia (Acute) Reason for Visit: Right upper extremity cellulitis Objective: Seen and examined. Patient has swelling, induration of right upper extremity which is better than yesterday. Temperature T-max 99.9 Fahrenheit. No high-grade fever Vitals/I&O's: Vital Signs Temp Pulse Resp BP Pulse Ox 98.2 F 68 16 92/77 97 08/20/19 09:50 08/20/19 11:56 08/20/19 09:50 08/20/19 09:50 08/20/19 09:50 Oxygen Delivery Method Room Air Weight: 157 lb 6.561 oz Body Mass Index (BMI) 23.6 Intake and Output for Last 24 Hours 08/18/19 08/19/19 08/20/19 23:59 23:59 23:59 Intake Total 1842 / 2142 1420 / 1420 Output Total 500 / 500 Balance 1842 / 2142 920 / 920 General: Alert, Oriented x3, Cooperative HEENT: Atraumatic, PERRLA, EOMI, Normocephalic Neck: Supple, No JVD, Negative Carotid Bruits Lungs: Clear to auscultation, Normal air movement, No rhonchi, No wheeze, No rales Cardiovascular: Regular rate, Regular Rhythm, Normal S1, Normal S2, No murmurs Abdomen: Bowel Sounds Present, Soft, Non Tender, Non-Distended Extremities: Capillary Refill Less than 3 Seconds, Edema - Edema over right arm and forearm. No tenderness plus induration present on upper arm. No palpable lymph node over right axillary region. Had right mastectomy Skin: No rashes, No breakdown Musculoskeletal: No Tenderness to Palpation of Joints or Extremities, Arthritic Changes Neurological: Cranial nerves II-XII grossly intact, Deep Tendon Reflexes 2+/4 and Symmetrical, Neuro grossly intact Psych/Mental Status: Normal Affect, Appropriate Laboratory Results 08/19/19 19:00: WBC 13.7 H, RBC 4.61, Hgb 14.2, Hct 42.7, MCV 92.6, MCH 30.8, MCHC 33.3, RDW Std Deviation 42.9, RDW Coeff of Martha 12.7, Plt Count 272, MPV 9.8, Immature Gran % (Auto) 0.400, Neut % (Auto) 90.7 H, Lymph % (Auto) 4.9 L, [place] % (Auto) 3.8, Eos % (Auto) 0.1, Baso % (Auto) 0.1, Absolute Neuts (auto) 12.5 H, Absolute Lymphs (auto) 0.68 L, Nucleated RBC % 0 08/19/19 19:00: PT 11.9, INR 0.9, APTT 26.3 08/19/19 19:00: Sodium 139, Potassium 2.7 L*, Chloride 101, Carbon Dioxide 31.0, Anion Gap 7, BUN 15, Creatinine 0.78, Estim Creat Clear Calc 49.79, Est GFR (MDRD) Af Amer 92, Est GFR (MDRD) Non-Af 76, BUN/Creatinine Ratio 19.2, Glucose 114 H, Calcium 9.7, Total Bilirubin 0.80, AST 29, ALT 30, Alkaline Phosphatase 64, Total Protein 7.8, Albumin 4.4, Globulin 3.4, Albumin/Globulin Ratio 1.3 08/19/19 19:00: Lactic Acid 1.3 08/19/19 19:00: Magnesium 2.0 08/20/19 05:18: Sodium 137, Potassium 3.2 L, Chloride 103, Carbon Dioxide 26.0, Anion Gap 8, BUN 10, Creatinine 0.61, Estim Creat Clear Calc 49.79, Est GFR (MDRD) Af Amer 124, Est GFR (MDRD) Non-Af 102, BUN/Creatinine Ratio 16.5, Glucose 131 H, Calcium 8.5 08/20/19 05:18: WBC 11.4 H, RBC 3.91 L, Hgb 12.0, Hct 36.6 L, MCV 93.6, MCH 30.7, MCHC 32.8, RDW Std Deviation 45.1 H, RDW Coeff of Martha 13.2, Plt Count 216, MPV 9.8, Immature Gran % (Auto) 0.400, Neut % (Auto) 85.6 H, Lymph % (Auto) 8.3 L, [place] % (Auto) 5.5, Eos % (Auto) 0.0, Baso % (Auto) 0.2, Absolute Neuts (auto) 9.8 H, Absolute Lymphs (auto) 0.95, Nucleated RBC % 0 Current Medications Acetaminophen (Tylenol) 650 mg PO Q6H PRN PRN PRN Reason: Pain Score 1-10/Temp > 100.7 F Calcium/Vitamin D (Os-Darrius 500mg + D) 1 tablet PO DAILY [facility] Last Admin: 08/20/19 08:48 Dose: 1 tablet Documented by: Dextrose (D50w Syringe) 0 gm IV X1 PRN; Protocol PRN Reason: Hypoglycemia Enoxaparin Sodium (Lovenox) 40 mg SC DAILY [facility] Last Admin: 08/20/19 08:48 Dose: 40 mg Documented by: Ergocalciferol (Vitamin D) 50,000 unit PO We@1000 [facility] Glucagon () 1 mg IM .X1 PRN PRN Reason: Hypoglycemia Cefazolin Sodium 2 gm/ Sodium (Chloride) 110 mls @ 150 mls/hr IV Q8 [facility] Last Infusion: 08/20/19 06:31 Dose: Infused Documented by: Vancomycin IV Pharmacy to Dose (1 ea/ Sodium Chloride) 500 mls @ 250 mls/hr IV X1 PRN; Protocol PRN Reason: Rx to Dose Sodium Chloride () 250 mls @ 15 mls/hr IV .[id number] PRN PRN Reason: Saline Flush Sodium Chloride () 250 mls @ 15 mls/hr IV .[id number] PRN PRN Reason: Additional IVPB Infusion Vancomycin HCl () 500 mg in 100 mls @ 100 mls/hr IV Q12H [facility] Last Infusion: 08/20/19 09:48 Dose: Infused Documented by: Lactobacillus Acidophilus (Acidophilus) 1 tablet PO TID [facility] Multivitamins/Minerals (Multivitamin With Minerals (Bkc)) 1 tablet PO DAILY@0800 [facility] Last Admin: 08/20/19 08:48 Dose: 1 tablet Documented by: Ondansetron HCl (Zofran) 4 mg IV Q8H PRN PRN PRN Reason: NAUSEA/VOMITING Oxycodone HCl (Oxyir) 5 mg PO Q4H PRN PRN PRN Reason: Pain Score 6-10/10 Rizatriptan Benzoate (Maxalt) 5 mg PO DAILY PRN PRN PRN Reason: HAP Last Admin: 06/18/20 05:59 Dose: 5 mg Documented by: Sodium Chloride () 10 - 40 ml IV UD PRN PRN Reason: SALINE FLUSH STROKE Vital Signs/Narrative: Vital Signs Temp Pulse Resp BP Pulse Ox 08/20/19 11:56 68 08/20/19 09:50 98.2 F 64 16 92/77 97 Medical Necessity - Tobacco Use Smoking Status: Former smoker Tobacco Use: Cigarettes Assessment/Plan All Active Problems (Last Reviewed 08/19/19 @ 22:[address] Oswald Treviño MD) History of breast cancer in adulthood (Resolved) Cellulitis of right upper extremity (Acute) Sepsis (Acute) Hypokalemia (Acute) The patient is a 73 year old F with history of right breast cancer status post mastectomy right axillary partial lymphadenectomy and chemotherapy admitted with increased temperature, redness and induration of right upper extremity now with mild pain consistent with sepsis secondary to cellulitis of right upper extremity Sepsis (tachycardia, tachypnea and leukocytosis) secondary to right upper extremity cellulitis, most likely Streptococcus. Patient is being admitted on Medr floor. Blood cultures x2 are pending. On IV cefazolin. MRSA nasal screen ordered. Very low suspicion of MRSA therefore will discontinue vancomycin. There is improvement in cellulitis. Follow-up CBC Hypokalemia most likely secondary to diuretic indapamide: K was 2.7 still low 3.2. On potassium replacement. Mag 2.0. Right breast cancer status post mastectomy, axillary lymphadenectomy and chemotherapy: In remission DVT prophylaxis Subcutaneous Lovenox. Inpatient E&M: 33608 [facility] Hosp L2
[2019-08-20 16:19] LABS: M R Staph aureus DNA By PCR Negative (Negative); Probe Check PASS; Specimen Processing Control PASS
[2019-08-21] MEDS: oxyCODONE 5 MG Tablet PO (02:14)
[2019-08-21 02:16] VITALS: BP 138/78; PULSE 76; RESP 16; TEMP 37.3; O2SAT 95
[2019-08-21] MEDS: Cefazolin 2 GM in 0.9% Normal Saline 100 ML IV ×2 (05:45→11:09)
[2019-08-21 08:40] VITALS: BP 117/72; PULSE 70; RESP 16; TEMP 36.5; O2SAT 97
[2019-08-21] MEDS: Calcium Carb/Vitamin D 1 TABLET Tablet PO (08:46)
[2019-08-21] MEDS: Multivitamins,Ther W-Minerals Tablet 1 TABLET PO (08:46)
[2019-08-21] MEDS: Acetaminophen 325 MG Tablet 650 MG PO (08:46)
--- NOTE | 2019-08-21 09:24 | DCINST_ITS ---
- Discharge Diagnoses Current Active Problems: Current Active and Chronic Problems (Last Reviewed 08/19/19 @ 22:[address] Oswald Treviño MD) Cellulitis of right upper extremity (Acute) Sepsis (Acute) Hypokalemia (Acute) You will use the following diet at home:: Cardiac Your food should be the consistency of: Regular Discharge Activity: May Not Drive Weight Bearing Status: Weight bearing as tolerated Call your doctor if you observe: Fever of 101 or Higher, Change in Color, Inability to urinate, Inability to have a bowel movement, Using more than one pad per hour, Shortness of breath, Dizziness, Fainting spells, Swelling in the ankles, Chest pain, Prolonged hiccoughing, Increased palpitations (irregular heartbeat), Calf discomfort, Uncontrolled pain Allergies/Adverse Reactions: Allergies cat pelt standardized allergenic ex [Cat Pelt Std Extract] Adverse Reaction (Verified 02/07/16 14:20) Other Medications to take at Discharge Indapamide 1.25 mg PO DAILY 04/03/13 Codeine/Butalbital/ASA/Caffein [Fiorinal-Cod 09-26-220-40 Cap] 1 each PO PRN PRN 05/04/13 Ergocalciferol [Vitamin D] 50,000 unit PO WE 05/04/13 Rizatriptan Benzoate [Maxalt] 5 mg PO DAILY PRN PRN 05/04/13 Calcium Citrate/Vitamin D3 [Calcium Citrate - Vit D Caplet] 1 tab PO DAILY 08/19/19 Multivit-Min/Iron/Folic/Lutein [Centrum Silver Women Tablet] 1 tab PO DAILY 08/19/19 Cefadroxil 1 gm PO BID #10 tab 08/21/19 Lactobacillus Acidophilus [Acidophilus] 1 tab PO TID tab 08/21/19 Potassium Chloride [K-Dur] 20 meq PO DAILY #0 08/21/19 The following prescriptions were given: Cefadroxil 1 gm PO BID #10 tab Please follow up with your Primary Care Physician in: in 1-2 week Test Results: Test results from this visit will be discussed in further detail at your follow- up appointment, if applicable.
[2019-08-21 09:56] LABS: Absolute Neutrophil Count 4.6 X10^3/uL (2.0-7.7); Basophil# 0.01 X10^3/uL; Basophil% 0.2 % (0-1); Eosinophil# 0.05 X10^3/uL; Eosinophils% 0.8 % (0-5); Hematocrit 37.2 % (37-47); Hemoglobin 12.3 g/dL (12.0-15.0); Lymphocyte % 14.7 % (19-41); Mean Corp Hgb Conc 33.1 g/dL (32-36); Mean Corpuscular Volume 93.7 fL (81-99); Mean Platelet Vol. 9.5 fl (6.2-12.0); Monocyte# 0.58 X10^3/uL; Monocyte% 9.4 % (0-10); NRBC Flagged by Analyzer 0 % (0-5); Neutrophil # 4.58 X10^3/uL (2.7-7.7); Neutrophil % 74.6 % (47-70); Platelet Count 228 K/mm3 (150-450); RBC Distribution Width CV 13.1 % (11.6-14.6); RBC Distribution Width SD 44.8 fl (35.1-43.9); Red Blood Count 3.97 M/mm3 (4.2-5.4); White Blood Count 6.1 K/mm3 (4.4-11.0)
[2019-08-21 10:19] LABS: Anion Gap 5 (5-15); BUN 10 mg/dL (7-18); BUN/Creat Ratio 14.7 RATIO (10-20); Chloride 107 mmol/L (98-107); Creatinine, Serum 0.68 mg/dL (0.55-1.02); EST Glomerular Filtration Rate 90 mL/min (>60); Est Glom Filt Rate - Afr Amer 109 mL/min (>60); Estimated Creatinine Clearance 49.79 ml/min; Glucose 108 mg/dL (74-106); Potassium 3.7 mmol/L (3.5-5.1); Sodium Level 139 mmol/L (136-145)
[2019-08-21] MEDS: 0.9% Saline Lock 10 ML Syringe IV (11:09)
--- NOTE | 2019-08-21 11:14 | DS.PCM_ITS ---
Discharge Date and Diagnosis - Problem List Patient Problems: Active and Suspected Problems (Last Reviewed 08/19/19 @ 22:[address] Oswald Treviño MD) Cellulitis of right upper extremity (Acute) Sepsis (Acute) Hypokalemia (Acute) Date of Admission: 08/19/19 Date of Discharge: 08/21/19 - Primary Discharge Diagnosis Acute Problems: Active Problems (Last Reviewed 08/19/19 @ 22:[address] Oswald Treviño MD) Hypokalemia (Acute) Sepsis (tachycardia, tachypnea and leukocytosis) secondary to right upper extremity cellulitis, most likely Streptococcus. Hospital Course and Treatment Summary of Care Provided: The patient is a 73 year old F with history of right breast cancer status post mastectomy right axillary partial lymphadenectomy and chemotherapy admitted with increased temperature, redness and induration of right upper extremity now with mild pain consistent with sepsis secondary to cellulitis of right upper extremity 1. Sepsis (tachycardia, tachypnea and leukocytosis) secondary to right upper extremity cellulitis, most likely Streptococcus. Patient is being admitted on [facility] floor. Blood cultures x2 are negative so far. Patient was treated with IV cefazolin 5 more days of cefadroxil 1 g twice daily to complete a total of 7 days. MRSA nasal screen negative. Cellulitis has resolved. Hypokalemia most likely secondary to diuretic indapamide: K2.7 improved to 3.7. On potassium replacement. Mag 2.0. Potassium dose increased to 20 mg daily. Right breast cancer status post mastectomy, axillary lymphadenectomy and ch emotherapy: In remission Discharge medication reconciliation done. Discharge follow-up instructions completed. Discharge process discussed with the patient and all questions were answered to patient's satisfaction. Follow-up with PCP in 1 to 2 weeks and check BMP. Total time spent, exact 35 minutes on discharge meds reconciliation, examination, coordination of care with nurses and ancillary staff, review of imaging and blood test and discussion with the patient on follow-up instructions Patient Problems: Active and Suspected Problems (Last Reviewed 08/19/19 @ 22:[address] Oswald Treviño MD) Cellulitis of right upper extremity (Acute) Sepsis (Acute) Hypokalemia (Acute) Objective: Seen and examined. No fever or chills. Blood pressure is controlled. No tachycardia. Right upper extremity swelling, erythema has resolved. On physical exam General: Alert, Oriented x3, Cooperative HEENT: Atraumatic, PERRLA, EOMI, Normocephalic Neck: Supple, No JVD, Negative Carotid Bruits Lungs: Clear to auscultation, Normal air movement, No rhonchi, No wheeze, No rales Cardiovascular: Regular rate, Regular Rhythm, Normal S1, Normal S2, No murmurs Abdomen: Bowel Sounds Present, Soft, Non Tender, Non-Distended Extremities: Capillary Refill Less than 3 Seconds, Edema - Edema over right arm and forearm. No tenderness, erythema, tenderness on right upper arm. Right upper extremity swelling on baseline. No palpable lymph node over right axillary region. Had right mastectomy Skin: No rashes, No breakdown Musculoskeletal: No Tenderness to Palpation of Joints or Extremities, Arthritic Changes Neurological: Cranial nerves II-XII grossly intact, Deep Tendon Reflexes 2+/4 and Symmetrical, Neuro grossly intact Psych/Mental Status: Normal Affect, Appropriate - Physical Exam Vitals/I&O's: Vital Signs Temp Pulse Resp BP Pulse Ox 97.7 F L 70 16 117/72 97 08/21/19 08:40 08/21/19 08:40 08/21/19 08:40 08/21/19 08:40 08/21/19 08:40 Oxygen Delivery Method Room Air Weight: 157 lb 6.561 oz Body Mass Index (BMI) 23.6 Intake and Output for Last 24 Hours 08/19/19 08/20/19 08/21/19 23:59 23:59 23:59 Intake Total 184 / 2142 0 / 2090 1100 / 1100 Output Total 1350 / 1350 Balance 184 / 2 740 / 740 1100 / 1100 Laboratory Results 08/20/19 13:50: MRSA (PCR) Negative 08/21/19 09:40: WBC 6.1, RBC 3.97 L, Hgb 12.3, Hct 37.2, MCV 93.7, MCH 31.0, MCHC 33.1, RDW Std Deviation 44.8 H, RDW Coeff of Martha 13.1, Plt Count 228, MPV 9.5, Immature Gran % (Auto) 0.300, Neut % (Auto) 74.6 H, Lymph % (Auto) 14.7 L, Walsh % (Auto) 9.4, Eos % (Auto) 0.8, Baso % (Auto) 0.2, Absolute Neuts (auto) 4.6, Absolute Lymphs (auto) 0.90, Nucleated RBC % 0 08/21/19 09:40: Sodium 139, Potassium 3.7, Chloride 107, Carbon Dioxide 27.0, Anion Gap 5, BUN 10, Creatinine 0.68, Estim Creat Clear Calc 49.79, Est GFR (MDRD) Af Amer 109, Est GFR (MDRD) Non-Af 90, BUN/Creatinine Ratio 14.7, Glucose 108 H, Calcium 9.0 Current Medications Acetaminophen (Tylenol) 650 mg PO Q6H PRN PRN PRN Reason: Pain Score 1-10/Temp > 100.7 F Last Admin: 08/21/19 08:46 Dose: 650 mg Documented by: Calcium/Vitamin D (Os-Darrius 500mg + D) 1 tablet PO DAILY [facility] Last Admin: 08/21/19 08:46 Dose: 1 tablet Documented by: Dextrose (D50w Syringe) 0 gm IV X1 PRN; Protocol PRN Reason: Hypoglycemia Enoxaparin Sodium (Lovenox) 40 mg SC DAILY [facility] Last Admin: 08/21/19 08:46 Dose: Not Given Documented by: Ergocalciferol (Vitamin D) 50,000 unit PO We@1000 MIKE Glucagon () 1 mg IM .X1 PRN PRN Reason: Hypoglycemia Cefazolin Sodium 2 gm/ Sodium (Chloride) 110 mls @ 150 mls/hr IV Q8 [facility] Last Admin: 08/21/19 11:09 Dose: 150 mls/hr Documented by: Sodium Chloride () 250 mls @ 15 mls/hr IV .[id number] PRN PRN Reason: Saline Flush Sodium Chloride () 250 mls @ 15 mls/hr IV .[id number] PRN PRN Reason: Additional IVPB Infusion Lactobacillus Acidophilus (Acidophilus) 1 tablet PO TID [facility] Last Admin: 08/21/19 05:45 Dose: 1 tablet Documented by: Multivitamins/Minerals (Multivitamin With Minerals (Bkc)) 1 tablet PO DAILY@0800 [facility] Last Admin: 08/21/19 08:46 Dose: 1 tablet Documented by: Ondansetron HCl (Zofran) 4 mg IV Q8H PRN PRN PRN Reason: NAUSEA/VOMITING Oxycodone HCl (Oxyir) 5 mg PO Q4H PRN PRN PRN Reason: Pain Score 6-10/10 Last Admin: 08/21/19 02:14 Dose: 5 mg Documented by: Rizatriptan Benzoate (Maxalt) 5 mg PO DAILY PRN PRN PRN Reason: HAP Last Admin: 08/20/19 05:59 Dose: 5 mg Documented by: Sodium Chloride () 10 - 40 ml IV UD PRN PRN Reason: SALINE FLUSH Last Admin: 08/21/19 11:09 Dose: 10 ml Documented by: Discharge Activity: May Not Drive Weight Bearing Status: Weight bearing as tolerated Call your doctor if you observe: Fever of 101 or Higher, Change in Color, Inability to urinate, Inability to have a bowel movement, Using more than one pad per hour, Shortness of breath, Dizziness, Fainting spells, Swelling in the ankles, Chest pain, Prolonged hiccoughing, Increased palpitations (irregular heartbeat), Calf discomfort, Uncontrolled pain Home Medications: Medications to take at Discharge Indapamide 1.25 mg PO DAILY 04/03/13 Codeine/Butalbital/ASA/Caffein [Fiorinal-Cod 87-83-208-40 Cap] 1 each PO PRN PRN 05/04/13 Ergocalciferol [Vitamin D] 50,000 unit PO WE 05/04/13 Rizatriptan Benzoate [Maxalt] 5 mg PO DAILY PRN PRN 05/04/13 Calcium Citrate/Vitamin D3 [Calcium Citrate - Vit D Caplet] 1 tab PO DAILY 08/19/19 Multivit-Min/Iron/Folic/Lutein [Centrum Silver Women Tablet] 1 tab PO DAILY 08/19/19 Cefadroxil 1 gm PO BID #10 tab 08/21/19 Lactobacillus Acidophilus [Acidophilus] 1 tab PO TID tab 08/21/19 Potassium Chloride [K-Dur] 20 meq PO DAILY #0 08/21/19 Following Prescrptions Were Given to Patient: Cefadroxil 1 gm PO BID #10 tab Primary Care Physician: Donna Alaniz DO [Primary Care Provider] - Please follow up with your Primary Care Physician in: in 1-2 week Medical Necessity - Tobacco Use Smoking Status: Former smoker Tobacco Use: Cigarettes Meaningful Use Info Meaningful Use Diagnoses (Choose all that apply): None applicable Inpatient E&M: 36574 Disch Hosp
[2019-08-21 12:10] VITALS: BP 127/86; PULSE 81; RESP 14; TEMP 36.7; O2SAT 95
--- NOTE | 2019-08-24 15:05 | CASEMGMT ---
ASHLEIGH ANGELES DC PHONE CALL DC DATE: 07/21/2019 DC DISPOSITION: Home DC DIAGNOSIS: Cellulitis of RUE LACE/STRATA: 12/04 F/U APPTS MADE PRIOR TO DC: no. weekend discharge PRESCRIPTIONS ACQUIRED BY PT: yes Intro role of CM to patient via phone. Pt states she is doing well, has no questions re: f/u or prescriptions. No care improvement suggestions were given and pt stated she appreciated the excellent care she received. Aryan ARAUJON RN ACM
== END 2019-08-21 12:45 | disposition home or self-care (01) | DRG 872 ==
LOC: ED 20:15 → MS3 22:23
PROVIDERS: Admitting Provider Hospitalist; Emergency Provider Emergency Medicine; PCP Internal Medicine; Visit Provider Internal Medicine
DX: A41.9 Sepsis, unspecified organism (principal); L03.113 Cellulitis of right upper limb; B95.5 Unspecified streptococcus as the cause of diseases classified elsewhere; E87.6 Hypokalemia; T50.2X5A Adverse effect of carbonic-anhydrase inhibitors, benzothiadiazides and other diuretics, initial encounter; Y92.9 Unspecified place or not applicable; R73.01 Impaired fasting glucose; Z79.899 Other long term (current) drug therapy; Z85.3 Personal history of malignant neoplasm of breast; Z92.21 Personal history of antineoplastic chemotherapy; Z87.891 Personal history of nicotine dependence; Z90.10 Acquired absence of unspecified breast and nipple
CPT/HCPCS: 36415; 80048; 80053; 82043; 82570; 83605; 83735; 85025; 85610; 85730; 87040; 87641; 93005; 99285; J7030; J7040; A4216; J0295

== ENCOUNTER → 2019-10-12 08:11 | Outpatient (CLI) | payer MEDICARE, OTHER, SELFPAY ==
[2019-08-19 21:49] VITALS: BMI 23.6
--- NOTE | 2019-10-12 08:13 | BI_ITS ---
MAMMOGRAPHY - UNILATERAL SCREENING: LEFT BREAST REASON FOR EXAM: Female, 73 years old. Routine annual screening examination (unilateral). PERTINENT HISTORY: Personal history of breast cancer. Prior right mastectomy. TECHNIQUE: Digital unilateral breast lanny (3D mammographic acquisition) in the CC and MLO projections. 2-D mediolateral oblique (MLO) and craniocaudad (CC) views of both breasts were obtained. CAD: Full Field Digital Mammography with Computer Added Detection was performed. COMPARISON: Comparison is made with prior study dated 10/10/2018 and 09/30/2017. FINDINGS: Breast Composition: The breasts are heterogeneously dense, which may obscure small masses. There are no dominant masses or suspicious calcifications. No other significant abnormalities are identified. There has been no significant change since the prior study. BI/SCREEN MAMM (CAD) W/LANNY UNI L IMPRESSION: Stable unilateral screening mammogram. Yearly follow-up mammogram recommended. (A) ASSESSMENT CATEGORY: BIRADS Category 1: Negative. A letter regarding these results will be sent to the patient by the facility within 30 days. Approximately 10% of breast cancers are not detected by mammography. A normal mammogram should not delay biopsy of a clinically suspicious abnormality. [id number] Electronically Signed: Filiberto Medellin, at 9:09 EDT , Service support ,
--- NOTE | 2019-10-12 08:13 | US_ITS ---
STUDY: ABDOMINAL ULTRASOUND - RIGHT UPPER QUADRANT REASON FOR VISIT: Female, 73 years old fatty liver TECHNIQUE: Ultrasound evaluation of the right upper quadrant was performed with real-time and static estrada-scale imaging. TECHNICAL QUALITY: Adequate. COMPARISON: Comparison is made with prior study dated 10/10/2018. FINDINGS: Liver: The liver measures 13.9 cm. There is mild degree of increased echogenicity consistent with mild fatty infiltration. The bile ducts are within normal limits. There is hepatic color flow. The direction of portal flow is hepatopetal. There is no demonstrated mass lesion. Gallbladder: Normal distended gallbladder. The gallbladder wall measures 1.4 mm. There is a negative sonographic Ferreira''s sign. There is no pericholecystic fluid. There are no gallstones. There is an 8 mm x 6 mm x 2 mm gallbladder polyp. Common Bile Duct (C.B.D.): The common bile duct measures 6.3 mm. Pancreas: Normal size of the head, body and tail of the pancreas. There is normal echogenicity of the pancreas. There is no demonstrated pancreatic mass or cyst. Right Kidney: Normal size of the right kidney. The right kidney measures 11.3 cm x 5.6 cm x 4.0 cm. Normal renal cortex. The right cortex measures 1.2 cm. There is a 1.2 cm x 1.1 cm x 1 cm cysts. There is no right hydronephrosis. US/Liver IMPRESSION: Mild degree of fatty infiltration of the liver. 8 mm x 6 mm x 2 mm gallbladder polyp. Small right renal cyst. Electronically Signed: Filiberto Medellin, at 9:36 EDT , Service support ,
== END ==
PROVIDERS: PCP Internal Medicine; Referring Provider Internal Medicine; Visit Provider Internal Medicine
DX: Z12.31 Encounter for screening mammogram for malignant neoplasm of breast (principal); R76.0 Raised antibody titer
CPT/HCPCS: 76705; 77063; 77067

== ENCOUNTER → 2020-02-11 10:22 | Outpatient (CLI) | payer MEDICARE, OTHER, SELFPAY ==
[2019-08-19 21:49] VITALS: BMI 23.6
[2020-02-11 11:13] LABS: ALB/GLOB Ratio 1.3 RATIO (0.9-2.4); AST(SGOT) 21 U/L (15-37); Alanine Aminotransfer ALT/SGPT 28 U/L (13-56); Alkaline Phosphatase 63 U/L (45-117); Anion Gap 6 (5-15); BUN 14 mg/dL (7-18); BUN/Creat Ratio 19.8 RATIO (10-20); Calcium,Total 9.6 mg/dL (8.5-10.1); Chloride 101 mmol/L (98-107); Creatinine, Serum 0.71 mg/dL (0.55-1.02); EST Glomerular Filtration Rate 86 mL/min (>60); Est Glom Filt Rate - Afr Amer 104 mL/min (>60); Globulin 3.1 g/dL (2.2-4.2); Glucose 85 mg/dL (74-106); Magnesium 2.3 mg/dL (1.6-2.6); Potassium 3.7 mmol/L (3.5-5.1); Protein, Total 7.1 g/dL (6.4-8.2); Sodium Level 139 mmol/L (136-145); Thyroid Stim Hormone (TSH) 2.53 uIU/mL (0.358-3.74)
[2020-02-11 11:31] LABS: Vitamin D,25 Hydroxy 70.4 ng/mL
== END ==
PROVIDERS: PCP Internal Medicine; Referring Provider Internal Medicine Endocrinology, Diabetes & Metabolism; Visit Provider Internal Medicine Endocrinology, Diabetes & Metabolism
DX: M81.0 Age-related osteoporosis without current pathological fracture (principal); E55.9 Vitamin D deficiency, unspecified; E04.9 Nontoxic goiter, unspecified; E83.42 Hypomagnesemia
CPT/HCPCS: 36415; 80053; 82306; 83735; 84443

== ENCOUNTER 2020-03-11 09:00 | Outpatient (RCR) | payer MEDICARE, OTHER, SELFPAY ==
[2019-08-19 21:49] VITALS: BMI 23.6
--- NOTE | 2020-01-06 09:44 | HP.OTEVAL_ITS ---
Patient's Visit Information MARY JO RÍOS is a 74 year old F, referred to Occupational Therapy by Dr. Donna Alaniz DO, with a diagnosis of right UE lymphedema. Date of Evaluation: 01/06/20 Occupational Therapist: Claudia Malik OTR/Susana, CHT - Subjective This 74 year old female was seen for OT eval with dx of right UE lymphedema. Pt states she noticed this summer she noticed her forearm and hand has increased edema with gardening. pt has compression sleeves but does not wear them. pt states in August 2019 she was dx with celulites. States she attempted to wear her compression sleeve at night but she felt this made her swelling worse. pt states she would like to know what she can change to help control he swelling. - Lymphedema (Circumferential Measure) MCP: right 19cm left 19cm Wrist: rght 17.5cm left 15cm Lower forearm: right 21cm left 16cm Largest forearm: right 25cm left 22cm Elbow: right 24.5 cm left 23.5 cm Largest humerus: right 27cm left 27cm Axcillary: right 31cm left 31cm Upper Exremity Comments: pt demo with stage II lymphedema - Quick DASH-Disab of Arm,Shoulder& Hand Quick DASH Score: 25.0000 - Goals Demonstrate a 20% reduction in edema by d/c: Yes Demonstrate adequate knowledge of self-bangaging by 1st week: Yes Demonstrate adequate knowledge of self-massage by 2nd week: Yes Demonstrate adequate knowledge skin care/prec by 2nd week: Yes Demonstrate adequate knowledge therapeutic exercises by d/c: Yes Select approp compression garment w/donning/care/wear by d/c: Yes Voice need to replace compression garment every 4-6mo by dc: Yes - Rehabilitation General Assessment: pt known by therapist as pt was treated in past for same dx. pt demo a increase difficulty with mtg. her right UE lymphedema. pt has had cellulitis x2, use of compression sleeve and glove and ex. Due to pts struggles with lymphedema mtg pt would benefit from skilled OT services 1x week for 3-4 weeks. Therapist review of HEP of AROM, skin care, use of compression garments, and compression alternatives. pt did choose to seek compression alternative at this time, along with use of new compression garments. As pt has regressed with her lymphedema pt would benefit from pneumatic compression pump (flexitouch system) to assist pt in lymphedma mtg and decrease risk of cellulitis. pt is receptive to POC and use of home compression pump. Rehabilitation Potential: Good - Anticipated Interventions Education re Diagnosis, Manual Lymph Drainage, Education re Life-long lymphedema Management, Education re Self-Bandaging Techniques, Education re Skin Care and Precautions, Education re Self Massage Techniques, Education re Correct Donning Tech,Care&Wearing Sched Comp Garments - Visit Plan Frequency: 1x/Week Duration: 3 Weeks TEXT: Thank you for the opportunity to evaluate your patient. For Medicare and Medicare HMO plans, please review the plan of care and approve it. It will need to be FAXED BACK to us at [phone] for Medicare purposes. Please let me know if there are questions or concerns regarding this plan of care. Physician Signature: Date:
--- NOTE | 2020-06-13 16:58 | HP.OT.NRP ---
MARY JO RÍOS was seen in my office for initial evaluation on 01/06/20. The following Plan of Care was established for this patient: Initial Frequency: 1x/Week Initial Duration: 3 Weeks Anticipated Interventions: Education re Diagnosis, Manual Lymph Drainage, Education re Life-long lymphedema Management, Education re Self-Bandaging Techniques, Education re Skin Care and Precautions, Education re Self Massage Techniques, Education re Correct Donning Tech,Care&Wearing Sched Comp Garments This patient was last seen in our office 03/11/20. Pertinent comments regarding their Occupational therapy will appear below: pt was seen for 2 visits- demo understanding of using compression garments- pt has not scheduled further apts and due to time lapse in services pt d/c. At this point I will be discontinuing this patient from occupational therapy. I would be happy to see this patient again in the future if found appropriate by the physician. Thank you! Claudia Malik, OTR/L, CHT
== END 2020-03-11 19:00 | disposition home or self-care (01) ==
LOC: OT 09:00
PROVIDERS: PCP Internal Medicine; Referring Provider Internal Medicine; Visit Provider Internal Medicine
DX: I89.0 Lymphedema, not elsewhere classified (principal)
CPT/HCPCS: 97166; 97530

== ENCOUNTER 2020-08-07 22:48 | Emergency (ER) | payer MEDICARE, OTHER, SELFPAY ==
[2019-08-19 21:49] VITALS: BMI 23.6
[2020-08-07 22:48] VITALS: BP 145/74; PULSE 75; RESP 16; TEMP 36.3; O2SAT 95; BMI 23.6
--- NOTE | 2020-08-07 23:00 | RAD_ITS ---
STUDY: X-RAY - RIGHT WRIST REASON FOR EXAM: Female, 74 years old. deformity TECHNIQUE: 3 view(s) of the wrist were obtained. COMPARISON: None. FINDINGS: There is a comminuted impacted and significantly angulated fracture through the distal radial metaphysis. Articular surfaces angulated dorsally. No gross displacement of fragments. Cannot exclude intra-articular extension of fracture. No gross fracture of the visualized ulna. No dislocation. Diffuse demineralization. IMPRESSION: Angulated fracture of the distal radial metaphysis. Electronically Signed: Mikael Gorman MD at 23:23 EDT , Service support , RAD/Wrist min 3 Views
[2020-08-07] MEDS: Morphine 4 MG/ML Syringe IV (23:50)
[2020-08-08] VITALS (8 sets, daily range): BP systolic 141–165; BP diastolic 77–95; PULSE 71–87; RESP 15–18; O2SAT 93–98
--- NOTE | 2020-08-08 00:14 | EX.ED.UPPERE ---
HPI History of Present Illness Chief Complaint: Upper Extremity Injury Informant: patient Occured/Mechanism Mechanism/Context: Yes fall Onset/Context/Timing Onset: Today Context: Onset with activity Timing: Continuous Quality of Pain: Burning and Throbbing Location: Right wrist Worsened by: Movement Relieved by: Rest Associated Symptoms Associated Symptoms: Positive for Parasthesia Narrative Narrative: Patient presents with right wrist injury that occurred tonight. Patient states she was doing some gardening when she fell. Patient states she landed on her right upper extremity. Patient states her pain is worse with any movement. Patient denies any head injury or loss of consciousness. Patient admits to some tingling in the tips of her fingers. Patient describes her pain as burning and throbbing. Patient denies any radiation of the pain. [facility] Medical History (Updated 08/08/20 @ 00:[address] Michael Dent, ) Breast cancer Home Medications indapamide 1.25 mg PO DAILY 04/03/13 [History Last Taken 08/18/19] ozzomra-xrkvopssfs-QLP-caff [Fiorinal-Codeine #3] 1 ea PO PRN PRN 05/04/13 [History Last Taken Unknown] ergocalciferol (vitamin D2) [Vitamin D2] 50,000 unit PO WE 05/04/13 [History Last Taken 08/12/19] rizatriptan 5 mg PO DAILY PRN PRN 05/04/13 [History Last Taken Unknown] calcium citrate-vitamin D3 1 tab PO DAILY 08/19/19 [History Last Taken 08/18/19] ityujogr-phe-ytva-FA-lutein 1 tab PO DAILY 08/19/19 [History Last Taken 08/18/19] acidophilus-pectin, citrus 1 tab PO TID tab 08/21/19 [Rx Last Taken Unknown] cephalexin 500 mg PO TID #15 cap 08/21/19 [Rx Last Taken Unknown] potassium chloride 20 meq PO DAILY #0 08/21/19 [Rx Last Taken 08/18/19] hydrocodone-acetaminophen 1 tab PO Q6H PRN PRN 3 Days #10 tablet 08/08/20 [Rx Last Taken Unknown] Allergy/AdvReac Type Severity Reaction Status Date / Time cat pelt standardized AdvReac Other Verified 08/07/20 22:51 allergenic ex [Cat Pelt Std Extract] Surgical History (Updated 08/08/20 @ 00:[address] Michael Dent DO) History of appendectomy History of mastectomy Social History Smoking Status: Former smoker ROS ROS ED Constitutional Constitutional ED: Denies chills or fever(s) Eyes Eyes: Denies blurry vision or change in vision ENT ENT ED: Denies rhinorrhea or sore throat Cardiovascular Cardiovascular: Denies chest pain or palpitations Respiratory/Chest Respiratory/Chest: Denies cough or dyspnea Gastrointestinal Gastrointestinal: Denies nausea or vomiting Genitourinary Genitourinary ED: Denies dysuria or hematuria Musculoskeletal Musculoskeletal: Denies back pain or neck pain Integumentary Denies abscess or rash Neurologic Neurologic: Denies headache(s) or weakness Allergic/Immunologic Allergic/Immunologic ED: Denies mouth swelling or urticaria EXAM Physical Exam Const Vital Signs: 08/07/20 22:48 Temperature 97.3 F L Temperature Source Temporal Pulse Rate 75 Respiratory Rate 16 Blood Pressure 145/74 H Blood Pressure Mean 97 Pulse Ox 95 Oxygen Delivery Method Room Air Positive well nourished and well developed General Appearance ED: well developed HEENT Reports moist mucous membranes Extremity Extremity Narrative: There is tenderness and edema over the right distal radius and wrist area. There is no obvious deformity. Range of motion was limited in all motions of the right wrist secondary to pain. Sensation was intact to light touch in all digits. Capillary refill was less than 2 seconds in all digits. There is a strong radial pulse noted. There are no lacerations or puncture wounds noted. Neuro oriented x3, CN's II-XII intact bilaterally, moves all extremities, no focal motor deficits and no sensory deficits noted Sensorium / Orientation: alert Psych mental status grossly normal MDM MDM MDM Narrative Medical decision making narrative: Patient was given a dose of morphine here. X-rays of the right wrist were obtained. There are 3 views. On my interpretation, there is a comminuted fracture of the distal radius with dorsal angulation of the distal fragment. There is no ulnar styloid fracture noted. Radiologist also interpreted the x-rays and agrees. Patient was advised of her findings. Patient was consented for reduction under conscious sedation. Patient was given the opportunity ask any questions about the procedure. She had none. Patient was placed on cardiac and pulse oximeter monitors. Patient was given a total of 80 mg of propofol. Patient had no hypoxic episodes. Patient had no dysrhythmias. The distal radius fracture was reduced. A custom made Ortho-Glass AP splint was applied. Neurovascular exam was intact after the procedure. Patient tolerated the procedure well. Repeat x-rays were obtained. There are 3 views. On my interpretation, the distal fragment is in better anatomic position. There is still some dorsal angulation of the distal fragment. AP splint is in place. Radiologist also interpreted the x-ray and agrees. Patient was given a prescription for [employer]. Patient was instructed to ice and elevate the right wrist. Patient was given a referral to Dr. Daigle from orthopedics. Patient will follow up with him in 2 to 3 days. Patient and family understood and were agreeable with the plan. All questions were answered. Radiography Diagnostic Testing: Radiology Impression Wrist X-Ray 08/07/20 23:00 Procedures Upper Extremity Splints Upper Extremity Splint: Orthoglass and - (Anterior posterior short arm) Splint Fabrication: Fabricated Location: Right Other Procedures Procedure(s): Reduction of distal radius fracture. Patient was given a total of 80 mg of propofol. Cardiac and pulse oximeter monitors were maintained. The fracture was reduced. Patient tolerated the procedure well. Patient had no hypoxic episodes or dysrhythmias. Patient was awake and alert after the procedure. Discharge Plan Triage Chief Complaint: Upper Extremity Injury ED Provider: Michael Dent Dx/Rx/DC Orders Clinical Impression: Closed fracture of right distal radius Instructions: ED Colles Fracture, Reduction Required Prescriptions: New hydrocodone-acetaminophen [hydrocodone-acetaminophen] 1 TABLET tablet 1 tab PO Q6H PRN PRN (Reason: Pain) 3 Days Qty: 10 RF: 0 No Action indapamide 1.25 MG tablet 1.25 mg PO DAILY RF: 0 mpiurzj-ymtkbpmram-EMM-caff [Fiorinal-Codeine #3] 1 EACH capsule 1 ea PO PRN PRN (Reason: Headache) RF: 0 ergocalciferol (vitamin D2) [Vitamin D2] 50,000 UNIT capsule 50,000 unit PO WE RF: 0 rizatriptan 5 MG tablet 5 mg PO DAILY PRN PRN (Reason: Headache/Pain) RF: 0 zejmzjqn-iff-ejco-FA-lutein 1 EACH tablet 1 tab PO DAILY RF: 0 calcium citrate-vitamin D3 1 EACH tablet 1 tab PO DAILY RF: 0 acidophilus-pectin, citrus 1 TABLET tablet 1 tab PO TID RF: 0 potassium chloride 10 MEQ tablet 20 meq PO DAILY Qty: 0 RF: 0 cephalexin 500 MG capsule 500 mg PO TID Qty: 15 RF: 0 Primary Care Provider: Donna Alaniz Referrals: Donna Alaniz DO [Primary Care Provider] - 1-2 Weeks Roderick Daigle DO [STAFF PHYSICIAN] - 3-5 Days Disposition Disposition: Home, self care Discharge Date/Time: 08/08/20 01:41
[2020-08-08] MEDS: Propofol 200 MG/20 ML Vial IV BOLUS (00:22)
--- NOTE | 2020-08-08 00:42 | RAD_ITS ---
STUDY: X-RAY - RIGHT WRIST REASON FOR EXAM: Female, 74 years old. Injury/Pain -- Repeat x-ray after reduction TECHNIQUE: 3 view(s) of the wrist were obtained. COMPARISON: None. FINDINGS: Exam is limited due to superimposition of bandage with obscuration of fine detail. There is comminuted fracture involving the distal radial metaphysis extending to the articular surface. There is mild posterior displacement of the major distal fragment. There is mild angulation, tip of the ankle oriented volarly. The distal ulna is unremarkable. Normal radiocarpal articulation. Normal distal radioulnar articulation. Normal carpal bones. Normal carpal articulations. Normal carpometacarpal articulation of the thumb. Normal second through fifth carpometacarpal articulations. Normal visualized metacarpal bones. There is extensive soft tissue swelling through the distal forearm and wrist. RAD/Wrist min 3 Views IMPRESSION: Distal radial fracture as described. Electronically Signed: Elda Canada MD at 1:01 EDT , Service support ,
== END 2020-08-08 01:41 | disposition home or self-care (01) ==
PROVIDERS: Emergency Provider Emergency Medicine; PCP Internal Medicine
DX: S52.591A Other fractures of lower end of right radius, initial encounter for closed fracture (principal); Z87.891 Personal history of nicotine dependence; W18.30XA Fall on same level, unspecified, initial encounter; Y93.H2 Activity, gardening and landscaping; Y92.007 Garden or yard of unspecified non-institutional (private) residence as the place of occurrence of the external cause; Y99.8 Other external cause status
CPT/HCPCS: 25605; 29125; 73110; 96374; 96375; 99284; J7030; A4216

== ENCOUNTER 2020-09-06 10:18 | Outpatient (RCR) | payer MEDICARE, OTHER, SELFPAY ==
--- NOTE | 2020-09-06 14:03 | HP.OTEVAL_ITS ---
Patient's Visit Information MARY JO RÍOS is a 74 year old F, referred to Occupational Therapy by Dr. Donna Alaniz DO, with a diagnosis of lymphedema. Date of Evaluation: 09/06/20 Occupational Therapist: JAMIE Carreon/Susana, CHT - Subjective This 74 year old female was see for OT eval with dx of right UE lymphedema- pt states she had a fall on 08/07/20 and sx on 08/12/20 was sx. pt is currently 3 weeks and 4 days from ORIF of distal radius fx. pt did have orthosis. pt states her lymphedema sleeve has faired from fall and fx. pt states she tried to wear her compression is 6 months old and 20-30 mmHg. but because it includes the gantlet her fingers swelled, and if she wears the glove her wrist gets swollen- pt arrives without her orthosis and with light stockinette on her right wrist. pt would like to know what she can do to decrease her swelling. - Lymphedema (Circumferential Measure) MCP: right 20cm Wrist: right 18cm Lower forearm: right 21.5 Largest forearm: right 29cm Elbow: right 26cm - Quick DASH-Disab of Arm,Shoulder& Hand Quick DASH Score: 38.6350 - Goals Demonstrate a 20% reduction in edema by d/c: Yes Demonstrate adequate knowledge of self-massage by 2nd week: Yes Demonstrate adequate knowledge skin care/prec by 2nd week: Yes Demonstrate adequate knowledge therapeutic exercises by d/c: Yes Select approp compression garment w/donning/care/wear by d/c: Yes Voice need to replace compression garment every 4-6mo by dc: Yes - Rehabilitation General Assessment: pt is currently 3 weeks and 4 days s/p from a right ORIF of distal radius. pt had flair of her lymphedema after her fall and sx. pt demo need for skilled OT services 1-2 x week to decrease edema and ed. pt that swelling now compared to her last apt in 2019 is more. This is expected due to injury and sx. Therapist ed. pt on andrey. to use to get her swelling under control. IE wrap at night- get new garment as the one she is using is 6 months old. therapist also reviewed self manual lymph massage - pt demo understanding and agree to POC. Rehabilitation Potential: Questionable - Anticipated Interventions Education re Diagnosis, Manual Lymph Drainage, Education re Life-long lymphedema Management, Education re Skin Care and Precautions, Education re Self Massage Techniques, Education re Correct Donning Tech,Care&Wearing Sched Comp Garments, Home Program - Visit Plan Frequency: 1-2x /Week Duration: 4 Weeks TEXT: Thank you for the opportunity to evaluate your patient. For Medicare and Medicare HMO plans, please review the plan of care and approve it. It will need to be FAXED BACK to us at [phone] for Medicare purposes. Please let me know if there are questions or concerns regarding this plan of care. Physician Signature: Date:
== END 2020-09-06 19:00 | disposition home or self-care (01) ==
LOC: OT 10:18
PROVIDERS: PCP Internal Medicine; Referring Provider Internal Medicine; Visit Provider Internal Medicine
DX: I89.0 Lymphedema, not elsewhere classified (principal)
CPT/HCPCS: 97166

== ENCOUNTER → 2020-09-06 13:22 | Outpatient (CLI) | payer MEDICARE, OTHER, SELFPAY ==
[2020-08-07 22:48] VITALS: BMI 23.6
--- NOTE | 2020-09-06 13:26 | VDUE_ITS ---
Reason For Study: Swelling Right Proximal Right jugular vein is spontaneous, widely patent, phasic, with no intraluminal echogenicity noted. Right subclavian vein is spontaneous, widely patent, phasic, with no intraluminal echogenicity noted. Right Lower Arm Right radial vein is compressible. Right ulnar vein is compressible. Right Arm Right axillary vein is spontaneous, patent, phasic, competent, compressible and demonstrates augmentation. Right brachial vein is compressible. Right cephalic vein is compressible. Right basilic vein is compressible. Patient Safety Prelim report to [place]. VL/Venous Duplex US, Unilateral Interpretation Summary Deep veins of the right upper extremity are patent and compressible segmentally . There is no evidence of deep vein thrombosis. The superficial veins of the right upper extr emity, the basilic and cephalic veins, are patent and compressible. There is no evidence of right upper extremity superficial thrombophlebitis involving the veins imaged. Ordering Physician: Donna Alaniz Referring Physician: Donna Alaniz Performed By: Indigo Balderas RVT ?
== END ==
PROVIDERS: PCP Internal Medicine; Referring Provider Internal Medicine; Visit Provider Internal Medicine
DX: M79.89 Other specified soft tissue disorders (principal)
CPT/HCPCS: 93971

== ENCOUNTER → 2020-10-17 08:23 | Outpatient (CLI) | payer MEDICARE, OTHER, SELFPAY ==
--- NOTE | 2020-10-17 08:25 | BI_ITS ---
MAMMOGRAPHY - UNILATERAL SCREENING: LEFT BREAST REASON FOR EXAM: Female, 74 years old. Routine annual screening examination (unilateral). PERTINENT HISTORY: Personal history of breast cancer. Prior right mastectomy. TECHNIQUE: Digital unilateral breast lanny (3D mammographic acquisition) in the CC and MLO projections. 2-D mediolateral oblique (MLO) and craniocaudad (CC) views of both breasts were obtained. CAD: Full Field Digital Mammography with Computer Added Detection was performed. COMPARISON: Comparison is made with prior study dated 10/12/2019 and 10/10/2018. FINDINGS: Breast Composition: The breasts are heterogeneously dense, which may obscure small masses. There are no dominant masses or suspicious calcifications. No other significant abnormalities are identified. There has been no significant change since the prior study. BI/SCREEN MAMM (CAD) W/LANNY UNI L IMPRESSION: Stable unilateral screening mammogram. Yearly follow-up mammogram recommended. (A) ASSESSMENT CATEGORY: BIRADS Category 1: Negative. A letter regarding these results will be sent to the patient by the facility within 30 days. Approximately 10% of breast cancers are not detected by mammography. A normal mammogram should not delay biopsy of a clinically suspicious abnormality. [id number] Electronically Signed: Filiberto Medellin MD at 9:09 EDT , Service support ,
--- NOTE | 2020-10-17 08:25 | US_ITS ---
STUDY: ABDOMINAL ULTRASOUND - RIGHT UPPER QUADRANT REASON FOR VISIT: Female, 74 years old FATTY LIVER TECHNIQUE: Ultrasound evaluation of the right upper quadrant was performed with real-time and static estrada-scale imaging. TECHNICAL QUALITY: Adequate. COMPARISON: Comparison is made with prior examination dated 10/12/2019. FINDINGS: Liver: The liver measures 10 cm. There is increased echogenicity consistent with fatty infiltration. The bile ducts are within normal limits. There is hepatic color flow. The direction of portal flow is hepatopetal. There is no demonstrated mass lesion. Gallbladder: Normal distended gallbladder. The gallbladder wall measures 1.3 mm. There is a negative sonographic Ferreira''s sign. There is no pericholecystic fluid. There are no gallstones. Common Bile Duct (C.B.D.): The common bile duct measures 7.6 mm. Pancreas: Normal size of the head, body and tail of the pancreas. There is normal echogenicity of the pancreas. There is no demonstrated pancreatic mass or cyst. Right Kidney: Normal size of the right kidney. The right kidney measures 11.5 cm x 5.1 cm x 3.9 cm. Normal renal cortex. The right cortex measures 1.4 cm. There is a 1.3 cm x 1.4 cm x 1.2 cm renal cyst. There is no right hydronephrosis. US/Liver IMPRESSION: Right renal cyst. Fatty infiltration of the liver. Electronically Signed: Filiberto Medellin MD at 15:26 EDT , Service support ,
== END ==
PROVIDERS: PCP Internal Medicine; Referring Provider Internal Medicine; Visit Provider Internal Medicine
DX: K76.0 Fatty (change of) liver, not elsewhere classified (principal); Z12.31 Encounter for screening mammogram for malignant neoplasm of breast
CPT/HCPCS: 76705; 77063; 77067

== ENCOUNTER → 2020-12-23 10:35 | Outpatient (CLI) | payer MEDICARE, OTHER, SELFPAY ==
[2020-12-23 12:42] LABS: PTHIN 55.7 pg/mL (18.4-80.1)
== END ==
PROVIDERS: PCP Internal Medicine; Visit Provider Internal Medicine Endocrinology, Diabetes & Metabolism
DX: E21.5 Disorder of parathyroid gland, unspecified (principal)
CPT/HCPCS: 36415; 83970

== ENCOUNTER 2021-05-05 09:39 | Outpatient (CLI) | payer MEDICARE, SELFPAY ==
--- NOTE | 2021-05-05 10:14 | ECHOD_ITS ---
Version 2 Reason For Study: Abn EKG Procedure This was a 2D Doppler, Color Flow transthoracic echocardiogram. Myocardial strain analysis was performed in this exam to aid in the assessment of cardiac function. Exam performed in department. Left Ventricle Normal LV size. Left ventricular systolic function is normal. The estimated ejection fraction is 55 %. Stage 1 diastolic dysfunction. No regional wall motion abnormalities noted. Right Ventricle Normal RV size. Normal systolic function. Atria Normal left atrium. Normal right atrium. Patent foramen ovale. Mitral Valve Mild diffuse mitral valve thickening. There is mild mitral annular calcification. Mild (1+) eccentric mitral valve insufficiency. Tricuspid Valve Normal tricuspid valve. Mild (1+) tricuspid valve insufficiency. Pulmonary artery systolic pressure is 30 mmHg. Aortic Valve Trisinus/trileaflet aortic valve. Normal aortic valve. Pulmonic Valve Normal pulmonic valve. Great Vessels Normal aortic root. The pulmonary artery is normal size. Normal inferior vena cava. Inferior vena cava collapse with sniff. Pericardium/Pleural No pericardial effusion. MMode/2D Measurements & Calculations LVIDd: 5.1 cm IVSd: 1.2 cm Ao root diam: 2.7 cm LVIDs: 3.0 cm LVPWd: 1.1 cm RVDd: 3.1 cm FS: 42.6 % LAV(MOD-bp): 51.7 ml LVAd ap4: 20.9 cm2 SV(MOD-sp4): 32.0 ml LAV(MOD-bp) Indexed: 26.7 ml/m2 LVLd ap4: 6.7 cm LAV(MOD-sp2): 45.5 ml EDV(MOD-sp4): 56.6 ml LAV(MOD-sp4): 46.8 ml EDV(sp4-el): 55.4 ml LVAs ap4: 12.5 cm2 LVLs ap4: 5.6 cm ESV(MOD-sp4): 24.6 ml ESV(sp4-el): 23.6 ml EF(MOD-sp4): 56.5 % EF(sp4-el): 57.3 % SV(sp4-el): 31.7 ml LA A4 area: 17.7 cm2 LA dimension(2D): 4.1 cm RA A4 area: 13.8 cm2 Doppler Measurements & Calculations MV E max humza: 99.3 cm/sec Lat Peak E' Humza: 6.5 cm/sec Med Peak E' Humza: 6.7 cm/sec MV A max humza: 115.5 cm/sec E/E' lat: 15.4 E/E' med: 14.8 MV E/A: 0.86 Ao V2 max: 167.6 cm/sec LV V1 max: 144.6 cm/sec PA V2 max: 86.1 cm/sec Ao max P.2 mmHg LV V1 max P.4 mmHg Ao V2 mean: 110.8 cm/sec Ao mean P.5 mmHg Ao V2 VTI: 35.4 cm TR max humza: 260.5 cm/sec TR max P.1 mmHg ECHO/Echo Complete Interpretation Summary Normal LV size. Left ventricular systolic function is normal. The estimated ejection fraction is 55 %. Pulmonary artery systolic pressure is 30 mmHg. Stage 1 diastolic dysfunction. Patent foramen ovale. The global longitudinal strain is normal. The global longitudinal strain = -19. 2 % (normal). Ordering Physician: Donna Alaniz Referring Physician: Donna Alaniz Performed By: Carol Cifuentes, ALHAJI, RVT
== END 2021-05-05 23:59 | disposition home or self-care (01) ==
PROVIDERS: PCP Internal Medicine; Referring Provider Internal Medicine; Visit Provider Internal Medicine
DX: R94.31 Abnormal electrocardiogram [ECG] [EKG] (principal)
CPT/HCPCS: 93306

== ENCOUNTER → 2021-07-14 | Outpatient (CLI) | payer MEDICARE, SELFPAY ==
[2021-07-14 06:43] LABS: Bacteria 0 SEEN /hpf (None Seen); Mucous, Urine 0 SEEN /hpf (<or=2+); Red Blood Cells-Urine 0 SEEN /hpf (0-5)
[2021-07-14 07:29] LABS: Color, Urine Yellow (Yellow); Glucose, Dipstick Normal (Normal); Ketone-Dipstick Negative (Negative); Leukocyte Esterase-Dipstick 25 /ul (Negative); Nitrite-Dipstick Negative (Negative); Occult Blood-Urine Negative /ul (Negative); Protein-Dipstick Negative (Negative); Specific Gravity, Urine 1.015 (1.002-1.030); Urine Bilirubin Dipstick Negative (Negative); Urine Clarity Clear (Clear); Urine Urobilinogen Normal (Normal); Urine pH 6.5 (5.0 - 8.0)
[2021-07-14 07:35] LABS: International Normalized Ratio 0.9; Prothrombin Time (Protime)PT. 12.3 SECONDS (11.7-14.9)
[2021-07-14 07:41] LABS: Squamous Epithelial Cells - UA 0-5 SEEN /hpf (5-10); White Blood Cells 0-5 SEEN /hpf (0-5)
[2021-07-14 07:44] LABS: Absolute Lymphocyte Count 1.46 X10^3/uL (0.83-4.51); Absolute Neutrophil Count 2.4 X10^3/uL (2.0-7.7); Basophil# 0.05 X10^3/uL; Basophil% 1.1 % (0-1); Eosinophil# 0.15 X10^3/uL; Eosinophils% 3.3 % (0-5); Hematocrit 39.1 % (37-47); Hemoglobin 12.8 g/dL (12.0-15.0); Lymphocyte # 1.46 X10^3/ul (0.83-4.51); Lymphocyte % 32.1 % (19-41); Mean Corp Hgb Conc 32.7 g/dL (32-36); Mean Corpuscular Hgb 30.8 pg (27.0-32.0); Mean Corpuscular Volume 94.2 fL (81-99); Monocyte# 0.52 X10^3/uL; Monocyte% 11.4 % (0-10); NRBC Flagged by Analyzer 0 % (0-5); Neutrophil # 2.36 X10^3/uL (2.7-7.7); Neutrophil % 51.9 % (47-70); Platelet Count 273 K/mm3 (150-450); RBC Distribution Width CV 12.6 % (11.6-14.6); RBC Distribution Width SD 43.4 fl (35.1-43.9); Red Blood Count 4.15 M/mm3 (4.2-5.4); White Blood Count 4.6 K/mm3 (4.4-11.0)
[2021-07-14 07:52] LABS: ALB/GLOB Ratio 1.2 RATIO (0.9-2.4); AST(SGOT) 30 U/L (15-37); Alanine Aminotransfer ALT/SGPT 31 U/L (13-56); Albumin, Serum 3.6 g/dL (3.2-5.0); Alkaline Phosphatase 56 U/L (45-117); Anion Gap 6 (5-15); BUN 14 mg/dL (7-18); BUN/Creat Ratio 21.8 RATIO (10-20); Calcium,Total 9.1 mg/dL (8.5-10.1); Chloride 106 mmol/L (98-107); Cholesterol 179 mg/dL (200); Creatinine, Serum 0.64 mg/dL (0.55-1.02); EST Glomerular Filtration Rate 96 mL/min (>60); Est Glom Filt Rate - Afr Amer 116 mL/min (>60); Globulin 3.1 g/dL (2.2-4.2); Glucose 98 mg/dL (74-106); High Density Lipoprotein 89 mg/dL; Potassium 3.4 mmol/L (3.5-5.1); Protein, Total 6.7 g/dL (6.4-8.2); Sodium Level 141 mmol/L (136-145); Triglycerides 54 mg/dL; Very Low Density Lipoprotein 11 mg/dL (5-40)
[2021-07-14 08:03] LABS: Microalbumin,Random Urine 10.2 mg/L (NO RANGE EST.); Microalbumin:Creatinine Ratio 10.6 mg/g CRE (<30 mg/g CRE)
[2021-07-14 08:38] LABS: Hemoglobin A1c 5.4 % (3.8-5.6)
== END | disposition home or self-care (01) ==
LOC: LAB 06:35
PROVIDERS: PCP Internal Medicine; Referring Provider Internal Medicine Endocrinology, Diabetes & Metabolism; Visit Provider Internal Medicine
DX: R23.8 Other skin changes (principal); R73.01 Impaired fasting glucose; K76.0 Fatty (change of) liver, not elsewhere classified; Z87.310 Personal history of (healed) osteoporosis fracture
CPT/HCPCS: 36415; 80053; 80061; 81001; 82043; 82570; 83036; 85025; 85610; 85730

== ENCOUNTER 2021-10-16 09:00 | Outpatient (RCR) | payer MEDICARE, SELFPAY ==
--- NOTE | 2021-09-27 14:26 | HP.PTEVAL_ITS ---
Patient's Visit Information MARY JO RÍOS is a 75 year old F referred to Physical Therapy by Dr. Donna Alaniz DO with a diagnosis of Right Shoulder Pain. Date of Evaluation: 09/27/21 Physical Therapist: Chhaya Ruelas DPT - Visit Plan Frequency: 2x /Week Duration: 4 Weeks Plan: US- Manual- Postural strength/stabilization. HEP Given IE: Postural Education, pec corner stretch, scapular retractions, CT Junction Stretch, standing chin tucks - Subjective Patient reports that she has had right shoulder pain for about 3 weeks. Insidious onset. Is very active in her garden. Saw Dr. Morales who gave her a trigger point injection, muscle relaxer and Ibuprofen. The Ibuprofen helps but its not better. She was in [facility] and had a massage which also did not help. So she was referred to PT. The pain is located in the levator insertion of the right side. Agg: reaching with either hand, moving the shoulder around. Piercing pain- but is not constant. No radiating pain. No [place] blurred vision or dizziness. She has not started to have neck pain on both sides. Worst: 7/10 Best: 0/10. If she changes position the pain complete goes away. No N/T in the hands. Sleep: not disturbed. No x-rays or MRI at this time. Has not tried a heating pad or ice. PMHx: breast cancer 30 years ago. Meds: potassium, Indepomide. - Objective Posture: FH, RS can correct but does not maintain. Gait: no deviation noted good arm swing and trunk rotation- no guarding of the right UE. Palpation: trigger points throughout medial border of the scapula, insertion of levator, cervical paraspinals. ROM: WFL in all planes of the cervical and UE. Does have pain with end range abduction. Strength: Scap: fair minus mild winging. Shoulder: 4+/5 with discomfort IE/ER test. Elbow: 5/5. - Special Tests R Shoulder Drop Sign - IS Test: Negative R Shoulder Empty Can - SS: Negative R Shoulder Belly Press - SupScap: Negative R Shoulder Neer - Impingement: Negative R Shoulder Zamora Christ - Impingement: Positive - Balance/Special Test Scores Quick DASH Score: 22.7250 - Goals Goal 1:: Patient will be I with HEP and progression Goal Time Frame: 4-6 Weeks Goal 2:: Patient will maintain proper posture t.o tx session to demo increased scap s/s Goal Time Frame: 4-6 Weeks Goal 3:: Patient will report 80 % improvement Goal Time Frame: 4-6 Weeks - Rehabilitation Potential Physical Therapy Diagnosis: Patient presents with hypomobility- she has decreased pain free ROM, UE and scapular s/s and muscular endurance leading to poor posture and increased pain with ADL's. Rehabilitation Potential: Good - Anticipated Interventions Patient/Client Instruction: Educate patient on: Benefits of Fitness Program Therapeutic Exercise to Include: Strength training, Endurance training, Balance training, Body mechanics, Postural training, Flexibilty training, Neuromotor development, Passive ROM, Active ROM, Dynamic Lumbar Stabilization, Scapular Strength/Stabilization Manual Therapy Techniques to Include: Mobilization, Functional dry needling, Soft tissue mobilization TENS: Yes Cryotherapy (ice pack, ice massage): Yes Thermo therapy (hot pack): Yes Ultrasound (thermal/non thermal): Yes Thank you for the opportunity to evaluate your patient. For Medicare and Medicare HMO plans, please review the plan of care and approve it. It will need to be FAXED BACK to us at [phone] for Medicare purposes. For Medicare only, by signing this I certify the plan of care. Please let me know if there are questions or concerns regarding this plan of care. Physician Signature: Date:
== END 2021-10-16 19:00 | disposition home or self-care (01) ==
LOC: PT 09:00
PROVIDERS: PCP Internal Medicine; Referring Provider Internal Medicine; Visit Provider Internal Medicine
DX: M25.511 Pain in right shoulder (principal)
CPT/HCPCS: 97035; 97110; 97140; 97161; 97164

== ENCOUNTER → 2021-10-19 | Outpatient (CLI) | payer MEDICARE, SELFPAY ==
--- NOTE | 2021-10-19 07:28 | BI_ITS ---
MAMMOGRAPHY - UNILATERAL SCREENING: LEFT BREAST REASON FOR EXAM: Female, 75 years old. Routine annual screening examination (unilateral). PERTINENT HISTORY: Personal history of breast cancer. Prior right mastectomy. TECHNIQUE: Digital unilateral breast lanny (3D mammographic acquisition) in the CC and MLO projections. 2-D mediolateral oblique (MLO) and craniocaudad (CC) views of both breasts were obtained. CAD: Full Field Digital Mammography with Computer Added Detection was performed. COMPARISON: Comparison is made with prior study 10/17/2020 and 10/12/2019. FINDINGS: Breast Composition: The breasts are heterogeneously dense, which may obscure small masses. There are no dominant masses or suspicious calcifications. No other significant abnormalities are identified. There has been no significant change since the prior study. BI/SCREEN MAMM (CAD) W/LANNY UNI L IMPRESSION: Stable unilateral screening mammogram. Yearly follow-up mammogram recommended. (A) ASSESSMENT CATEGORY: BIRADS Category 1: Negative. A letter regarding these results will be sent to the patient by the facility within 30 days. Approximately 10% of breast cancers are not detected by mammography. A normal mammogram should not delay biopsy of a clinically suspicious abnormality. [id number] Electronically Signed: Filiberto Medellin MD at 9:24 EDT ,
--- NOTE | 2021-10-19 08:06 | US_ITS ---
STUDY: ABDOMINAL ULTRASOUND - RIGHT UPPER QUADRANT REASON FOR VISIT: Female, 75 years old FATTY LIVER TECHNIQUE: Ultrasound evaluation of the right upper quadrant was performed with real-time and static estrada-scale imaging. TECHNICAL QUALITY: Adequate. COMPARISON: Comparison is made with prior study dated 10/17/2020. FINDINGS: Liver: The liver is mildly enlarged and measures 18.4 cm. There is increased echogenicity consistent with fatty infiltration. The bile ducts are within normal limits. There is hepatic color flow. The direction of portal flow is hepatopetal. There is no demonstrated mass lesion. Gallbladder: Normal distended gallbladder. The gallbladder wall measures 1.0 mm. There is a negative sonographic Ferreira''s sign. There is no pericholecystic fluid. There are no gallstones. Common Bile Duct (C.B.D.): The common bile duct measures 3.7 mm. Pancreas: Normal size of the head, body and tail of the pancreas. There is increased echogenicity of the pancreas. There is no demonstrated pancreatic mass or cyst. Right Kidney: Normal size of the right kidney. The right kidney measures 11.8 cm x 5.5 cm x 3.8 cm. Normal renal cortex. The right cortex measures 1.2 cm. There is a 1.5 cm x 1.5 cm x 1.3 cm cyst in the lateral aspect of the kidney. There is no right hydronephrosis. US/Abdomen Limited IMPRESSION: Mild hepatomegaly and fatty infiltration of the liver. Stable right renal cyst. Electronically Signed: Filiberto Medellin MD at 10:18 EDT ,
== END | disposition home or self-care (01) ==
LOC: OPBI 07:26
PROVIDERS: PCP Internal Medicine; Visit Provider Internal Medicine
DX: Z12.31 Encounter for screening mammogram for malignant neoplasm of breast (principal); K76.0 Fatty (change of) liver, not elsewhere classified; Z90.11 Acquired absence of right breast and nipple
CPT/HCPCS: 76705; 77063; 77067

== ENCOUNTER → 2021-10-27 | Outpatient (CLI) | payer MEDICARE, SELFPAY ==
[2021-10-27 08:42] LABS: Absolute Lymphocyte Count 1.01 X10^3/uL (0.83-4.51); Absolute Neutrophil Count 2.4 X10^3/uL (2.0-7.7); Basophil# 0.04 X10^3/uL; Eosinophil# 0.12 X10^3/uL; Hematocrit 40.4 % (37-47); Hemoglobin 13.3 g/dL (12.0-15.0); Lymphocyte # 1.01 X10^3/ul (0.83-4.51); Lymphocyte % 25.1 % (19-41); Mean Corp Hgb Conc 32.9 g/dL (32-36); Mean Corpuscular Hgb 30.6 pg (27.0-32.0); Mean Corpuscular Volume 93.1 fL (81-99); Mean Platelet Vol. 9.8 fl (6.2-12.0); Monocyte# 0.43 X10^3/uL; Monocyte% 10.7 % (0-10); NRBC Flagged by Analyzer 0 % (0-5); Neutrophil # 2.42 X10^3/uL (2.7-7.7); Platelet Count 278 K/mm3 (150-450); RBC Distribution Width CV 12.9 % (11.6-14.6); RBC Distribution Width SD 44.1 fl (35.1-43.9); Red Blood Count 4.34 M/mm3 (4.2-5.4)
[2021-10-27 09:27] LABS: ALB/GLOB Ratio 1.2 RATIO (0.9-2.4); AST(SGOT) 23 U/L (15-37); Alanine Aminotransfer ALT/SGPT 23 U/L (13-56); Albumin, Serum 3.6 g/dL (3.2-5.0); Alkaline Phosphatase 61 U/L (45-117); Anion Gap 4 (5-15); BUN 12 mg/dL (7-18); BUN/Creat Ratio 20.3 RATIO (10-20); Calcium,Total 9.4 mg/dL (8.5-10.1); Chloride 106 mmol/L (98-107); Cholesterol 199 mg/dL (200); Creatinine, Serum 0.59 mg/dL (0.55-1.02); EST Glomerular Filtration Rate 105 mL/min (>60); Est Glom Filt Rate - Afr Amer 127 mL/min (>60); Globulin 3.1 g/dL (2.2-4.2); Glucose 95 mg/dL (74-106); High Density Lipoprotein 96 mg/dL; Potassium 3.8 mmol/L (3.5-5.1); Protein, Total 6.7 g/dL (6.4-8.2); Sodium Level 141 mmol/L (136-145); Triglycerides 60 mg/dL; Very Low Density Lipoprotein 12 mg/dL (5-40)
[2021-10-27 09:45] LABS: Hemoglobin A1c 5.7 % (3.8-5.6)
== END | disposition home or self-care (01) ==
PROVIDERS: PCP Internal Medicine; Referring Provider Internal Medicine; Visit Provider Internal Medicine
DX: M85.80 Other specified disorders of bone density and structure, unspecified site (principal); K76.0 Fatty (change of) liver, not elsewhere classified; R73.01 Impaired fasting glucose
CPT/HCPCS: 36415; 80053; 80061; 82306; 83036; 85025

== ENCOUNTER → 2022-02-01 | Outpatient (CLI) | payer MEDICARE, SELFPAY ==
[2022-02-01 08:48] LABS: Absolute Lymphocyte Count 1.01 X10^3/uL (0.83-4.51); Absolute Neutrophil Count 2.3 X10^3/uL (2.0-7.7); Basophil# 0.04 X10^3/uL; Eosinophil# 0.17 X10^3/uL; Eosinophils% 4.3 % (0-5); Hematocrit 41.1 % (37-47); Hemoglobin 13.1 g/dL (12.0-15.0); Lymphocyte # 1.01 X10^3/ul (0.83-4.51); Lymphocyte % 25.8 % (19-41); Mean Corp Hgb Conc 31.9 g/dL (32-36); Mean Corpuscular Hgb 30.1 pg (27.0-32.0); Mean Corpuscular Volume 94.5 fL (81-99); Mean Platelet Vol. 10.5 fl (6.2-12.0); Monocyte# 0.41 X10^3/uL; Monocyte% 10.5 % (0-10); NRBC Flagged by Analyzer 0 % (0-5); Neutrophil # 2.27 X10^3/uL (2.7-7.7); Neutrophil % 58.1 % (47-70); Platelet Count 260 K/mm3 (150-450); RBC Distribution Width CV 12.8 % (11.6-14.6); Red Blood Count 4.35 M/mm3 (4.2-5.4); White Blood Count 3.9 K/mm3 (4.4-11.0)
[2022-02-01 09:19] LABS: ALB/GLOB Ratio 1.1 RATIO (0.9-2.4); AST(SGOT) 21 U/L (15-37); Alanine Aminotransfer ALT/SGPT 23 U/L (13-56); Albumin, Serum 3.5 g/dL (3.2-5.0); Alkaline Phosphatase 67 U/L (45-117); Anion Gap 6 (5-15); BUN 12 mg/dL (7-18); BUN/Creat Ratio 20.9 RATIO (10-20); Calcium,Total 9.3 mg/dL (8.5-10.1); Chloride 104 mmol/L (98-107); Creatinine, Serum 0.57 mg/dL (0.55-1.02); EST Glomerular Filtration Rate 109 mL/min (>60); Est Glom Filt Rate - Afr Amer 131 mL/min (>60); Globulin 3.3 g/dL (2.2-4.2); Glucose 97 mg/dL (74-106); Potassium 3.8 mmol/L (3.5-5.1); Protein, Total 6.8 g/dL (6.4-8.2); Sodium Level 140 mmol/L (136-145); Vitamin D,25 Hydroxy 81.1 ng/mL
[2022-02-01 09:46] LABS: Hemoglobin A1c 5.9 % (3.8-5.6)
== END | disposition home or self-care (01) ==
LOC: LAB 07:59
PROVIDERS: PCP Internal Medicine; Referring Provider Internal Medicine; Visit Provider Internal Medicine
DX: E55.9 Vitamin D deficiency, unspecified (principal); R73.01 Impaired fasting glucose
CPT/HCPCS: 36415; 80053; 82306; 83036; 85025

== ENCOUNTER 2022-02-15 08:30 | Outpatient (RCR) | payer MEDICARE, SELFPAY ==
--- NOTE | 2022-02-12 11:35 | HP.OTEVAL ---
Patient's Visit Information MARY JO RÍOS is a 76 year old F, referred to Occupational Therapy by Dr. Sandra Augustine MD, with a diagnosis of right distal radius fx s/p ORIF/ lymphedema. Date of Evaluation: 02/12/22 Occupational Therapist: Claudia Malik, WILFRIDOR/Susana, CHT - Subjective This 76 year old female was seen for OT eval with intraarticular fx of lower end right radius fx. pt had ORIF 08/12/21 and did therapy following. pt has hx of lymphedema and does not want to have sx to remove plate. pt states she started having increase twinge or pain with wrist and forearm motion and feels her arm feels weaker possible going on for last 2-3 months - pt does use lympheapress daily for her lymphedema- - Pain right wrist 6 - ROM Forearm: right & Left supination/pronation WNL Wrist: right 65/60 left 65/70 - Strength Sap Bw Bi Developer: right 40# left 45# Lateral Pinch: right 6# left 6# Tripod Pinch: right 4# left 4# Strength Comments: pt demo with pain with right lateral pinch on ulnar side of incision - Sensation Sensation Comments: denies - Quick DASH-Disab of Arm,Shoulder& Hand Quick DASH Score: 35.0000 - Goals Goal:Daily scar massage when approriate: Yes Goal:ROM equal to unaffected hand: Yes Goal:Sap Bw Bi Developer/Pinch strength at least 75% of unaffected hand: Yes Goal:No pain with affected hand use: Yes Goal:Full use of affected hand in daily activities including: Yes - Rehabilitation General Assessment: pt demo with limited right template maker and pinch strength along with pain with resistive testing- this limits pts ind. with ADls and IADls at this time. pt would benefit from skilled OT services 1-2x week for 2-3 weeks to ensure understanding of dx, healing and HEP. Today therapist ed. pt with wrist flex/ext forearm sup/pronation ex. along with bicep curls- initiated thumb stabilization ex. as well. pt demo understanding and agrees to POC. Rehabilitation Potential: Good - Anticipated Interventions Strengthening, Scar Care, Home Program - Visit Plan Frequency: 1-2x /Week Duration: 2-4 Weeks General Plan: thumb care. wrist. and UB strengthening TEXT: Thank you for the opportunity to evaluate your patient. For Medicare and Medicare HMO plans, please review the plan of care and approve it. It will need to be FAXED BACK to us at [phone] for Medicare purposes. Please let me know if there are questions or concerns regarding this plan of care. Physician Signature: Date:
--- NOTE | 2022-06-20 14:59 | HP.OT.NRP ---
MARY JO RÍOS was seen in my office for initial evaluation on 02/12/22. The following Plan of Care was established for this patient: Initial Frequency: 1-2x /Week Initial Duration: 2-4 Weeks Plan: pt with HEP Anticipated Interventions: Strengthening, Scar Care, Home Program This patient was last seen in our office 02/15/22. Pertinent comments regarding their Occupational therapy will appear below: pt was seen for 2 OT sessions. Due to time lapse in services pt d/c at this time. At this point I will be discontinuing this patient from occupational therapy. I would be happy to see this patient again in the future if found appropriate by the physician. Thank you! Claudia Malik, OTR/L, CHT
== END 2022-02-15 19:00 | disposition home or self-care (01) ==
LOC: OT 08:30
PROVIDERS: PCP Internal Medicine; Referring Provider Orthopaedic Surgery Hand Surgery; Visit Provider Orthopaedic Surgery Hand Surgery
DX: S52.571D Other intraarticular fracture of lower end of right radius, subsequent encounter for closed fracture with routine healing (principal); M62.81 Muscle weakness (generalized)
CPT/HCPCS: 97110; 97166

== ENCOUNTER 2022-02-16 07:18 | Outpatient (RCR) | payer MEDICARE, SELFPAY | END 2022-02-16 07:19 | disposition home or self-care (01) | LOC: PT 07:18 | PROVIDERS: PCP Internal Medicine; Referring Provider Internal Medicine; Visit Provider Internal Medicine | DX: M62.81 Muscle weakness (generalized) (principal) ==

== ENCOUNTER → 2022-08-13 | Outpatient (CLI) | payer MEDICARE, SELFPAY ==
[2022-08-13 13:47] LABS: Vitamin D,25 Hydroxy 85.3 ng/mL
[2022-08-13 13:54] LABS: ALB/GLOB Ratio 1.1 RATIO (0.9-2.4); AST(SGOT) 23 U/L (15-37); Alanine Aminotransfer ALT/SGPT 26 U/L (13-56); Albumin, Serum 3.8 g/dL (3.2-5.0); Alkaline Phosphatase 68 U/L (45-117); Anion Gap 4 (5-15); BUN 15 mg/dL (7-18); Calcium,Total 9.8 mg/dL (8.5-10.1); Chloride 106 mmol/L (98-107); Creatinine, Serum 0.68 mg/dL (0.55-1.02); EST Glomerular Filtration Rate 89 mL/min (>60); Est Glom Filt Rate - Afr Amer 108 mL/min (>60); Globulin 3.5 g/dL (2.2-4.2); Glucose 91 mg/dL (74-106); Magnesium 2.3 mg/dL (1.6-2.6); Potassium 4.1 mmol/L (3.5-5.1); Protein, Total 7.3 g/dL (6.4-8.2); Sodium Level 140 mmol/L (136-145); Thyroid Stim Hormone (TSH) 2.55 uIU/mL (0.358-3.74)
== END | disposition home or self-care (01) ==
LOC: LAB 12:25
PROVIDERS: PCP Internal Medicine; Referring Provider Internal Medicine Endocrinology, Diabetes & Metabolism; Visit Provider Internal Medicine Endocrinology, Diabetes & Metabolism
DX: E04.2 Nontoxic multinodular goiter (principal); M81.0 Age-related osteoporosis without current pathological fracture; E55.9 Vitamin D deficiency, unspecified; Z87.310 Personal history of (healed) osteoporosis fracture
CPT/HCPCS: 36415; 80053; 82306; 83735; 83970; 84443

== ENCOUNTER 2022-08-27 10:00 | Outpatient (RCR) | payer MEDICARE, SELFPAY ==
--- NOTE | 2022-08-13 10:54 | HP.PTEVAL_ITS ---
Patient's Visit Information MARY JO RÍOS is a 76 year old F referred to Physical Therapy by Dr. Donna Alaniz DO with a diagnosis of DAVID KNEE PAIN. Date of Evaluation: 08/13/22 Physical Therapist: Majo Ortega PT, Cert MDT - Visit Plan Frequency: 2-3x /Week Duration: 4-6 Weeks Plan: PATIENT REFUSING AQUATIC THERAPY. GAIT AND BALANCE TRAINING. CORE AND DAVID LE STRENGTHENING. DAVID LE ROM AND STRETCHING. HEP INSTRUCTION. - Subjective Work/Leisure: RETIRED. LIKES GARDENING - HEAVY DUTY. Disability: NO. Present symptoms: DAVID KNEE PAIN LEFT > RIGHT. GENERAL LEG WEAKNESS. Present since: L KNEE - CHRONIC/YEARS. R KNEE - A FEW MONTHS AGO. Pain Scale: L KNEE: WORST 7/10, LEAST 0/10, R KNEE: WORST 5/10, LEAST 0/10. Currently: L KNEE: 6/10, R KNEE: 4/10. Is it getting better, worse or staying the same: WORSENING. Comm enced as a result of: DAVID KNEES: NO APPARENT REASON. Symptoms at onset: L KNEE PAIN. Worse: MOVING AROUND. Better: SITTING DOWN. Disturbed sleep: NO. Previous history/Previous treatment: L KNEE: ABOUT 5 YEARS AGO HAD L KNEE MENISECTOMY AFTER FAILED PHYSICAL THERAPY. GETTING CORTISONE SHOTS ABOUT EVERY 3 MONTHS SINCE SURGERY FROM SURGEON. LAST INJECTION DIDN'T HELP. PATIENT REPORTS DR. COTO SUGGESTED SHE MIGHT WANT TO TRY GEL SHOTS AND SHE WILL FOLLOW BACK UP WITH HIM NEXT MONTH TO DISCUSS FURTHER. TKR ALSO DISCUSSED OPTION AND PATIENT WILLING IF NEEDED. STATES DR. COTO HAS NOT SEEN HER FOR HER R KNEE YET. Gait: INDEP GAIT WITHOUT AD TIME AND DISTANCE LIMITED BY PAIN. Bowel or Bladder Dysfunction: NO. Accidents: NO. Unexplained weight loss: NO. Imaging: RECENT R KNEE X-RAY SHOWING MODERATE DEGENERATIVE ARTHROSIS. (R KNEE X-RAY DUE TO NEWER ONSET - LONG HISTORY OF L KNEE PAIN AND NO RECENT IMAGING). L KNEE MRI IN THE PAST LEADING TO SURGERY - SEE ABOVE. - Objective Sitting/Standing Posture: POOR. FH. ROUNDED SHOULDERS. Other Observations: INDEP GAIT INTO PT WITHOUT ANY ASSISTIVE DEVICES OR LOB BUT WITH DECREASED CADANCE, LOOKING DOWN, DAVID GENU VARUS BUT NO LOB. Sensory deficit: DAVID LE LIGHT TOUCH SENSATION GROSSLY INTACT AND SYMMETRICAL. ROM deficit: -10 TO 123 FLEX R KNEE ROM IN SUPINE WITH A HEEL SLIDE. -20 TO 109 DEG FLEXION L KNEE. TIGHT DAVID HIP ALL PLANES, HS'S AND GASTROC SOLEUS COMPLEX'S. Motor deficit: DAVID LE WEAKNESS. Dural Signs: NEGATIVE DAVID LE'S. STEPS: PATIENT DEMO'S ABILITY TO GO UP AND DOWN STEPS RECIPRICALLY WITH ONE HR. DIFFICULTY LEADING UP WITH L VS RIGHT AND DIFFICULTY LEADING DOWN WITH R VS LEFT. Core strength: POOR. Palpation: NO ACUTE DAVID KNEE TENDERNESS. OTHER: EDEMA: RIGHT KNEE MOD. L KNEE MIN. - Balance/Special Test Scores Lower Extremity Functional Score: 37 30 Second Chair Rise Test Seconds: 8 - Goals Goal 1:: DECREASE C/O DAVID KNEE PAIN. Goal Time Frame: 4-6 Weeks Goal 2:: INCREASE DAVID LE FUNCTIONAL ROM TO EASE ADL'S. Goal Time Frame: 4-6 Weeks Goal 3:: IMPROVE DAVID LE STRENGTH TO EASE ADL'S. Goal Time Frame: 4-6 Weeks Goal 4:: PATIENT WILL BE INDEP WITH AN EX PROGRAM FOR CONTINUED IMPROVEMENT ONCE FORMAL PHYSICAL THERAPY CONCLUDES. Goal Time Frame: 4-6 Weeks - Anticipated Interventions Patient/Client Instruction: Educate patient on: Condition, Plan of Care, Risk Factors For the Purpose of:: To improve self management Therapeutic Exercise to Include: Strength training, Flexibilty training, Gait and locomotor training, Neuromotor development, In an aquatic setting, Dynamic Lumbar Stabilization For the Purpose of:: To decrease pain, To increase ROM, To improve muscle performance and motor function, To increase tolerance to activity/condition/position, To improve ability of physical actions for home/community/work/leisure, To improve gait and locomotor functions Thank you for the opportunity to evaluate your patient. For Medicare and Medicare HMO plans, please review the plan of care and approve it. It will need to be FAXED BACK to us at [phone] for Medicare purposes. For Medicare only, by signing this I certify the plan of care. Please let me know if there are questions or concerns regarding this plan of care. Physician Signature: Date:
== END 2022-08-27 19:00 | disposition home or self-care (01) ==
LOC: PT 10:00
PROVIDERS: PCP Internal Medicine; Referring Provider Internal Medicine; Visit Provider Internal Medicine
DX: M25.561 Pain in right knee (principal); M25.562 Pain in left knee
CPT/HCPCS: 97110; 97162

== ENCOUNTER → 2022-10-22 | Outpatient (CLI) | payer MEDICARE, SELFPAY ==
--- NOTE | 2022-10-22 08:58 | BI_ITS ---
MAMMOGRAPHY - UNILATERAL SCREENING: LEFT BREAST REASON FOR EXAM: Female, 76 years old. Routine annual screening examination (unilateral). PERTINENT HISTORY: Personal history of right-sided breast cancer status post mastectomy in 1988 TECHNIQUE: Digital unilateral breast lanny (3D mammographic acquisition) in the CC and MLO projections. 2-D mediolateral oblique (MLO) and craniocaudad (CC) views of the left breast was obtained. CAD: Full Field Digital Mammography with Computer Added Detection was performed. COMPARISON: Unilateral breast mammogram from 10/19/2021 FINDINGS: Breast Composition: The breasts are heterogeneously dense, which may obscure small masses. There are no dominant masses or suspicious calcifications. Stable benign-appearing left breast calcifications. No other significant abnormalities are identified. There has been no significant change since the prior study. BI/SCREEN MAMM (CAD) W/LANNY UNI L IMPRESSION: Stable unilateral screening mammogram. Yearly follow-up mammogram recommended. (A) ASSESSMENT CATEGORY: BIRADS Category 2: Benign. A letter regarding these results will be sent to the patient by the facility within 30 days. Approximately 10% of breast cancers are not detected by mammography. normal mammogram should not delay biopsy of a clinically suspicious abnormality. Electronically Signed: Joseph Gore DO at 11:49 EDT ,
--- NOTE | 2022-10-23 08:00 | US_ITS ---
STUDY: ABDOMINAL ULTRASOUND - RIGHT UPPER QUADRANT; ELASTOGRAPHY REASON FOR VISIT: Female, 77 years old. Fatty infiltration of the liver. TECHNIQUE: Ultrasound evaluation of the right upper quadrant was performed with real-time and static estrada-scale imaging. Point quantification shear wave elastography was performed (Linki). TECHNICAL QUALITY: Adequate. COMPARISON: Comparison is made with prior study October 19, 2021. FINDINGS: Liver: The liver is enlarged and measures 19 cm. There is increased echogenicity consistent with fatty infiltration. The bile ducts are within normal limits. There is hepatic color flow. The direction of portal flow is hepatopetal. There is no demonstrated mass lesion. Median liver stiffness measured 11 kPa. Gallbladder: Normal distended gallbladder. The gallbladder wall measures 2.1 mm. There is a negative sonographic Ferreira''s sign. There is no pericholecystic fluid. There are no gallstones. Common Bile Duct (C.B.D.): The common bile duct measures 4 mm. Pancreas: There is increased echogenicity of the pancreas. There is no demonstrated pancreatic mass or cyst. Right Kidney: Normal size of the right kidney. The right kidney measures 12 cm x 5.6 x 2 x 4 cm. Normal renal cortex. The right cortex measures 1 cm. There is a 1.6 cm x 1.5 cm x 1.2 cm cyst. There is no right hydronephrosis. US/ABD Limited w/ Elastography IMPRESSION: 1. Liver stiffness measures 11 kPa compatible with F2-F3 (Mild to moderate liver fibrosis) Metavir score. Electronically Signed: Filiberto Medellin MD at 15:20 EDT ,
== END | disposition home or self-care (01) ==
LOC: US 08:57
PROVIDERS: PCP Internal Medicine; Referring Provider Internal Medicine; Visit Provider Internal Medicine
DX: Z12.31 Encounter for screening mammogram for malignant neoplasm of breast (principal); K76.0 Fatty (change of) liver, not elsewhere classified
CPT/HCPCS: 76705; 76981; 77063; 77067

== ENCOUNTER → 2022-10-23 | Outpatient (CLI) | payer MEDICARE, SELFPAY | END | disposition home or self-care (01) | LOC: OPUS 08:01 | PROVIDERS: PCP Internal Medicine; Referring Provider Internal Medicine; Visit Provider Internal Medicine | DX: Z00.00 Encounter for general adult medical examination without abnormal findings (principal) ==

== ENCOUNTER → 2022-12-25 | Outpatient (CLI) | payer MEDICARE, SELFPAY ==
--- NOTE | 2022-12-25 10:40 | BD_ITS ---
STUDY: DUAL ENERGY X-RAY ABSORPTIOMETRY / DXA REASON FOR EXAM: Female, 77 years old. [id number] -- postmenopausal TECHNIQUE: Bone Mineral Density (BMD) measurements of lumbar spine and bilateral hips were obtained. COMPARISON: None. FINDINGS: Lumbar Spine (L1-L4): g/cm2 (0.934) / T-score (-1.1) / Z-score (1.5) Findings are suggestive of osteopenia with a low fracture risk. Left Femur Total: g/cm2 (0.688) / T-score (-2.1) / Z-score (-0.1) Left Femoral Neck: g/cm2 (0.679) / T-score (-1.5) / Z-score (0.7) Right Femur Total: g/cm2 (0.671) / T-score (-2.2) / Z-score (-0.3) Right Femoral Neck: g/cm2 (0.657) / T-score (-1.7) / Z-score (0.5) BD/Dexa Bone Density Study IMPRESSION: The patient is considered osteopenic as outlined below according to World Ayo Organization (WHO) criteria with a high fracture risk. Reference Information: The T-score is the number of standard deviations above or below the standard which is normal for young adults at their peak bone mineral density. The World Health Organization (WHO) interprets the T-scores as follows: Above -1 Normal bone density Between -1 and -2.5 Osteopenia Equal to / or below -2.5 Osteoporosis As a practical clinical guideline, osteopenia may be graded as follows: Mild -1 through -1.5 Moderate -1.6 through -2.0 Severe -2.1 through -2.4 The Z-score is the number of standard deviations above or below age-matched controls. A Z-score of less than -1.5 would be considered abnormal. References: 1. NIH Osteoporosis and Related Bone Diseases www osteo.org 2. International Society for Clinical Densitometry www iscd.org 3. National Osteoporosis Foundation www nof.org Electronically Signed: Filiberto Medellin MD at 11:22 EDT ,
== END | disposition home or self-care (01) ==
LOC: OPBD 10:33
PROVIDERS: PCP Internal Medicine; Referring Provider Internal Medicine; Visit Provider Internal Medicine
DX: Z78.0 Asymptomatic menopausal state (principal)
CPT/HCPCS: 77080

== ENCOUNTER → 2023-03-14 | Outpatient (CLI) | payer MEDICARE, SELFPAY ==
[2023-03-14 08:58] LABS: Absolute Lymphocyte Count 1.21 X10^3/uL (0.83-4.51); Absolute Neutrophil Count 2.5 X10^3/uL (2.0-7.7); Basophil# 0.05 X10^3/uL; Basophil% 1.2 % (0-1); Eosinophils% 2.3 % (0-5); Hematocrit 42.3 % (37-47); Hemoglobin 13.5 g/dL (12.0-15.0); Lymphocyte # 1.21 X10^3/ul (0.83-4.51); Lymphocyte % 27.9 % (19-41); Mean Corp Hgb Conc 31.9 g/dL (32-36); Mean Corpuscular Hgb 30.3 pg (27.0-32.0); Mean Corpuscular Volume 95.1 fL (81-99); Mean Platelet Vol. 9.8 fl (6.2-12.0); Monocyte% 11.5 % (0-10); NRBC Flagged by Analyzer 0 % (0-5); Neutrophil # 2.46 X10^3/uL (2.7-7.7); Neutrophil % 56.9 % (47-70); Platelet Count 313 K/mm3 (150-450); RBC Distribution Width CV 12.4 % (11.6-14.6); RBC Distribution Width SD 43.5 fl (35.1-43.9); Red Blood Count 4.45 M/mm3 (4.2-5.4); White Blood Count 4.3 K/mm3 (4.4-11.0)
[2023-03-14 09:37] LABS: AST(SGOT) 16 U/L (15-37); Alanine Aminotransfer ALT/SGPT 18 U/L (13-56); Albumin, Serum 3.5 g/dL (3.2-5.0); Alkaline Phosphatase 58 U/L (45-117); Anion Gap 7 (5-15); BUN 16 mg/dL (7-18); BUN/Creat Ratio 25.4 RATIO (10-20); Calcium,Total 9.8 mg/dL (8.5-10.1); Chloride 106 mmol/L (98-107); Creatinine, Serum 0.63 mg/dL (0.55-1.02); EST Glomerular Filtration Rate 97 mL/min (>60); Est Glom Filt Rate - Afr Amer 117 mL/min (>60); Globulin 3.5 g/dL (2.2-4.2); Glucose 91 mg/dL (74-106); Potassium 3.6 mmol/L (3.5-5.1); Sodium Level 140 mmol/L (136-145)
[2023-03-14 09:39] LABS: Hemoglobin A1c 5.3 % (3.8-5.6)
[2023-03-14 10:26] LABS: Microalbumin,Random Urine 12.3 mg/L (NO RANGE EST.); Microalbumin:Creatinine Ratio 17.3 mg/g CRE (<30 mg/g CRE)
== END | disposition home or self-care (01) ==
PROVIDERS: PCP Internal Medicine; Visit Provider Internal Medicine
DX: E55.9 Vitamin D deficiency, unspecified (principal); R73.01 Impaired fasting glucose
CPT/HCPCS: 36415; 80053; 82043; 82306; 82570; 83036; 85025

== ENCOUNTER → 2023-04-12 | Outpatient (CLI) | payer MEDICARE, SELFPAY ==
--- NOTE | 2023-04-12 07:55 | ECHOD_ITS ---
Reason For Study: MURMUR Procedure This was a 2D Doppler, Color Flow transthoracic echocardiogram. Myocardial strain analysis was performed in this exam to aid in the assessment of cardiac function. Exam performed in department. Left Ventricle Normal LV size. Left ventricular systolic function is normal. The estimated ejection fraction is 55 %. The global longitudinal strain = -19.6 % (normal). Normal diastology for age. No regional wall motion abnormalities noted. Right Ventricle Normal RV size. Normal systolic function. Atria The left and right atria are normal. Patent foramen ovale. Mitral Valve There is Mild focal posterior mitral annular calcification. The mitral valve is structurally normal. No prolapse or stenosis seen. Moderate (2+) mitral valve insufficiency. Tricuspid Valve Normal tricuspid valve. Trivial tricuspid valve insufficiency. Right ventricular systolic pressure estimated to be 23 mmHg. Aortic Valve Trisinus/trileaflet aortic valve. Mild focal aortic valve thickening. Trivial aortic valve insufficiency. Pulmonic Valve The pulmonic valve is not well visualized. Great Vessels Normal aortic root. Pericardium/Pleural No pericardial effusion. MMode/2D Measurements & Calculations LVIDd: 4.2 cm IVSd: 0.91 cm LVOT diam: 1.9 cm LVIDs: 2.7 cm LVPWd: 0.79 cm LVOT area: 2.7 cm2 RVDd: 3.2 cm FS: 35.2 % Ao root diam: 3.1 cm LAV(MOD-bp): 46.0 ml LVAd ap4: 22.2 cm2 LAV(MOD-bp) Indexed: 24.6 ml/m2 LVLd ap4: 6.5 cm LAV(MOD-sp2): 46.2 ml EDV(MOD-sp4): 61.8 ml LAV(MOD-sp4): 43.7 ml EDV(sp4-el): 64.2 ml LVAs ap4: 12.7 cm2 LVLs ap4: 5.6 cm ESV(MOD-sp4): 24.5 ml ESV(sp4-el): 24.4 ml EF(MOD-sp4): 60.3 % EF(sp4-el): 62.0 % LVAd ap2: 20.8 cm2 SV(MOD-sp4): 37.3 ml SV(MOD-sp2): 34.4 ml LVLd ap2: 6.6 cm EDV(MOD-sp2): 54.8 ml EDV(sp2-el): 55.2 ml LVAs ap2: 11.8 cm2 LVLs ap2: 6.0 cm ESV(MOD-sp2): 20.4 ml ESV(sp2-el): 19.9 ml EF(MOD-sp2): 62.8 % SV(sp4-el): 39.8 ml LA dimension(2D): 3.3 cm LA A4 area: 17.5 cm2 RA A4 area: 14.1 cm2 TAPSE: 2.5 cm Time Measurements MV dec time: 0.24 sec Doppler Measurements & Calculations MV E max humza: 94.4 cm/sec Lat Peak E' Humza: 8.3 cm/sec Med Peak E' Humza: 7.7 cm/sec MV A max humza: 116.8 cm/sec E/E' lat: 11.3 E/E' med: 12.3 MV E/A: 0.81 Ao V2 max: 158.2 cm/sec LV V1 max: 144.4 cm/sec MV dec slope: 399.6 cm/sec2 Ao max P.0 mmHg LV V1 max P.3 mmHg Ao V2 mean: 108.1 cm/sec LV V1 mean P.4 mmHg Ao mean P.4 mmHg LV V1 mean: 97.4 cm/sec Ao V2 VTI: 34.6 cm LV V1 VTI: 33.3 cm AV (velocity ratio): 0.96 NADJA(I,D): 2.6 cm2 NADJA(V,D): 2.5 cm2 SV(LVOT): 90.7 ml PA V2 max: 86.5 cm/sec TR max humza: 222.5 cm/sec PA max PG (full): 0.76 mmHg TR max P.8 mmHg ECHO/Echo Complete Interpretation Summary The estimated ejection fraction is 55 %. There is Mild focal posterior mitral annular calcification. Mild focal aortic valve thickening. Moderate (2+) mitral valve insufficiency. Patent foramen ovale. Ordering Physician: Donna Alaniz Referring Physician: Donna Alaniz Performed By: Ghislaine Thomas RDCS
== END | disposition home or self-care (01) ==
LOC: CVS 07:54
PROVIDERS: PCP Internal Medicine; Referring Provider Internal Medicine; Visit Provider Internal Medicine
DX: R01.1 Cardiac murmur, unspecified (principal)
CPT/HCPCS: 93306

== ENCOUNTER → 2023-04-25 | Outpatient (CLI) | payer MEDICARE, SELFPAY ==
[2023-04-25 11:16] LABS: Absolute Lymphocyte Count 1.21 X10^3/uL (0.83-4.51); Absolute Neutrophil Count 3.3 X10^3/uL (2.0-7.7); Basophil# 0.06 X10^3/uL; Basophil% 1.2 % (0-1); Hematocrit 43.6 % (37-47); Hemoglobin 14.1 g/dL (12.0-15.0); Lymphocyte # 1.21 X10^3/ul (0.83-4.51); Lymphocyte % 23.6 % (19-41); Mean Corp Hgb Conc 32.3 g/dL (32-36); Mean Corpuscular Hgb 30.4 pg (27.0-32.0); Mean Platelet Vol. 9.8 fl (6.2-12.0); Monocyte# 0.45 X10^3/uL; Monocyte% 8.8 % (0-10); NRBC Flagged by Analyzer 0 % (0-5); Neutrophil # 3.29 X10^3/uL (2.7-7.7); Neutrophil % 64.2 % (47-70); Platelet Count 276 K/mm3 (150-450); RBC Distribution Width CV 12.7 % (11.6-14.6); RBC Distribution Width SD 43.5 fl (35.1-43.9); Red Blood Count 4.64 M/mm3 (4.2-5.4); White Blood Count 5.1 K/mm3 (4.4-11.0)
[2023-04-25 11:50] LABS: Anion Gap 4 (5-15); BUN 15 mg/dL (7-18); BUN/Creat Ratio 20.9 RATIO (10-20); Calcium,Total 9.8 mg/dL (8.5-10.1); Chloride 104 mmol/L (98-107); Creatinine, Serum 0.72 mg/dL (0.55-1.02); EST Glomerular Filtration Rate 83 mL/min (>60); Est Glom Filt Rate - Afr Amer 101 mL/min (>60); Glucose 93 mg/dL (74-106); Potassium 3.5 mmol/L (3.5-5.1); Sodium Level 140 mmol/L (136-145)
== END | disposition home or self-care (01) ==
PROVIDERS: PCP Internal Medicine; Referring Provider Specialist; Visit Provider Specialist
DX: Z01.818 Encounter for other preprocedural examination (principal); M17.11 Unilateral primary osteoarthritis, right knee
CPT/HCPCS: 36415; 80048; 82040; 85025

== ENCOUNTER → 2023-05-03 | Outpatient (CLI) | payer MEDICARE, SELFPAY ==
--- NOTE | 2023-05-03 16:43 | CT_ITS ---
CT LEFT LOWER EXTREMITY WITH 3-D IMAGING CLINICAL INDICATION: VARUS DEFORMITY LEFT KNEE *EVENS PROTOCOL* TECHNIQUE: Axial CT images of the LEFT lower extremity was performed IV contrast material. Coronal and sagittal reformats were provided. RADIATION DOSAGE (If Supplied By Facility): CTDIvol = ( 18.76 ) mGy, DLP = ( 1244.89 ) mGycm COMPARISON: FINDINGS: Bones: Osseous structures are normal without evidence of fracture or dislocation. No lytic or blastic osseous masses. There is narrowing of the medial compartment of the joint with minor spurring of the medial femoral and tibial condyles. There is also mild narrowing of the lateral component of the patellofemoral joint. Soft Tissues: The deep soft tissue structures are unremarkable. The superficial soft tissues are unremarkable without evidence of edema, hematoma, or foreign body. CT/Extremity Lower without Contra IMPRESSION: Moderate degenerative changes. No acute fracture or other significant bony pathology. Electronically Signed: Mark Wiley MD at 22:07 EST Reading Location ID and State: [facility] / MD Tel , Service support ,
== END | disposition home or self-care (01) ==
PROVIDERS: PCP Internal Medicine; Referring Provider Specialist; Visit Provider Specialist
DX: M25.562 Pain in left knee (principal); M21.162 Varus deformity, not elsewhere classified, left knee; M17.12 Unilateral primary osteoarthritis, left knee
CPT/HCPCS: 73700

== ENCOUNTER → 2023-05-22 | Outpatient (CLI) | payer MEDICARE, SELFPAY ==
--- NOTE | 2023-05-22 15:36 | VDLE_ITS ---
Reason For Study: Left leg swelling RIGHT LEFT CFV is compressible, spontaneous, phasic, GSV is normal. competent and demonstrates normal CFV is compressible, spontaneous, phasic, augmentation. competent, and demonstrates normal Procedure augmentation. This is a venous duplex using B-mode, color FV is compressible, spontaneous, phasic, flow and spectral Doppler. competent and demonstrates normal Exam performed in department. augmentation. A preliminary report was called and/or faxed POP V is compressible, spontaneous, phasic, to [facility] GEE. competent and demonstrates normal augmentation. T/P Trunk is compressible. PTV is compressible. LT PerV is compressible. VL/Venous Duplex US, Unilateral Interpretation Summary There is no evidence of left lower extremity deep vein thrombosis. Left great s aphenous vein appears patent and compressible segmentally. Normal flow patterns right common femoral vein Ordering Physician: Mati Arreaga Referring Physician: Donna Alaniz D.O. Performed By: Indigo Balderas RVT
== END | disposition home or self-care (01) ==
LOC: CVS 15:32
PROVIDERS: PCP Internal Medicine; Referring Provider Physician Assistant Surgical; Visit Provider Physician Assistant Surgical
DX: R22.42 Localized swelling, mass and lump, left lower limb (principal); Z96.652 Presence of left artificial knee joint
CPT/HCPCS: 93971

== ENCOUNTER 2023-07-01 09:00 | Outpatient (RCR) | payer MEDICARE, SELFPAY ==
--- NOTE | 2023-05-10 13:41 | HP.PTEVAL ---
Patient's Visit Information Visit Information Visit Information: MARY JO RÍOS is a 77 year old F referred to Physical Therapy by Franklin Arreaga PA-C with a diagnosis of L TKA (DOS: 05/09/2023). Date of Evaluation: 05/10/23 Physical Therapist: Robert Liao DPT Visit Plan Frequency: 2-3x /Week Duration: 2 Months Plan: -ROM (PROM and AROM) with joint mobs (ant, post, and distraction), heel slides, box stretching -quad strengthening -Additional stretching and STM to quads, hamstrings, calves, ITB as needed -hip strengthening (bridging, S/L hip ABD, STS......eventually progress to 4 way hip and higher level strength/balance tasks) -weaning off of FWW to eventually no AD -pt likes to garden, possibly practice floor transfers and kneeling (note: pt R knee gives her some trouble) pt doing well, typical post-op POC, ensure ROM is achieved before advancing to higher level strength (HEP: supine heel slides, HS stretch, quad set, seated HR/TR, SLR) Subjective Subjective: Pt presents to PT s/p L TKA on 05/09/2023. She arrived to therapy using FWW and is present. Pt is currently on pain medication and is unable to drive. Pt able to recall s&s of infection and DVT, denies any calf pain. Pt slept in recliner last night with legs elevated, but has the goal to return to sleeping in her bed soon. Pt has 2 steps to get into house from garage, but has not had any issues with them so far. Pt has 16 steps to get down in to basement, but house in 1 level and does not have to navigate stairs frequently. Using a RTS temporarily until STS become easier. Pt PLOF is no AD and indep with all ADLs, providing supervision currently for safety. Pt reports some pain with getting in and out of car and had pre-op knee exercises in preparation for surgery. Pt wondered how often she should be using her ice machine and demo'd good understanding of SPT respone for 30 min max a few times per day. 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 Pain Left Knee: Pain Intensity (Out of 10): 1 Pain Intensity Range: 1 and 10 Objective Objective: ROM: L knee flex 80 deg, ext lacking 15 deg, good tolerance to seated L hamstring stretch GIRTH: L knee - 18.0 patellar, 18.5 suprapatellar OBSERVATION: some dried blood on bandage, contained within occluded environment STS: pt places LLE out in front before sitting, using mod UE support to sit down and stand up GAIT: antalgic, using FWW and lacking terminal knee ext in stance phase MMT: pt able to complete L LAQ, difficulty with quad set, approx. 20 deg knee ext lag LLE during SLR R LE: knee ext 4+/5, knee flex 4-/5 TU.19 with FWW, no LOB but provided CGA and VCs to back up to chair before sitting down Pt doing pretty well today, expected to be more painful tomorrow d/t nerve block wearing off. Pt highly motivated to participate in therapy, plan to address ROM first, then strength. Pt and her demo'd good understanding of post-op care, including what to look for with DVT or infection, icing, pain med management, and exercises early on. Balance/Special Test Scores WOMAC Total Score: 69 WOMAC Percentatge: 28.1300 Goals Goal 1:: Pt will achieve L knee ROM 0-0-120 Goal Time Frame: 4-6 Weeks Goal 2:: Pt will amb. 300+ ft with no AD Goal Time Frame: 6-8 Weeks Goal 3:: Pt will perform TUG in 12s with no AD Goal Time Frame: 6-8 Weeks Goal 4:: Pt will be able to complete all gardening tasks with <2/10 pain Goal Time Frame: 8-12 Weeks Goal 5:: Pt will navigate a flight of stairs with <2/10 pain and good control upon descent Goal Time Frame: 8-12 Weeks Rehabilitation Potential Physical Therapy Diagnosis: Pt presents to PT with L knee pain and deficits in knee ROM and gait, secondary to L TKA sx. Pt would benefit from PT services to address pain, ROM, strength, balance, gait mechanics, and training to return to PLOF with no AD and indep with all ADL and recreational act. Rehabilitation Potential: Excellent Anticipated Interventions Patient/Client Instruction: Educate patient on: Plan of Care For the Purpose of:: To decrease pain, To decrease swelling/inflammation, To increase ROM, To improve muscle performance and motor function, To improve ability to perform ADL's, To improve gait and locomotor functions, To improve health of tissue, To decrease soft tissue restriction, To increase flexibility/ROM, To improve balance, To improve safety with gait, To assume or resume ADL's, To reduce risk of recurrence, To improve safety, To foster healthy habits, To improve self management, To prevent re-injury, To improve ability to perform tasks related to life management and To improve tolerance to ADL's Therapeutic Exercise to Include: Strength training, Balance training, Flexibilty training, Gait and locomotor training, Neuromotor development, Passive ROM and Active ROM For the Purpose of:: To decrease pain, To decrease swelling/inflammation, To increase ROM, To increase oxygenation perfusion, To improve muscle performance and motor function, To improve ability to perform ADL's, To increase tolerance to activity/condition/position, To improve performance and independence with ADL's, To improve ability of physical actions for home/community/work/leisure, To improve endurance, To improve balance, To improve safety with gait, To assume or resume ADL's, To improve safety, To improve health and function, To improve decision making, To facilitate caregiver knowledge, To improve self management, To prevent re-injury and To improve tolerance to ADL's Manual Therapy Techniques to Include: Scar massage, Mobilization, Passive ROM and Soft tissue mobilization For the Purpose of:: To decrease pain, To decrease swelling/inflammation, To increase ROM, To improve health of tissue, To decrease soft tissue restriction and To increase flexibility/ROM Cryotherapy (ice pack, ice massage): Yes For the Purpose of:: To decrease pain and To decrease swelling/inflammation Text: Thank you for the opportunity to evaluate your patient. For Medicare and Medicare HMO plans, please review the plan of care and approve it. It will need to be FAXED BACK to us at [phone] for Medicare purposes. For Medicare only, by signing this I certify the plan of care. Please let me know if there are questions or concerns regarding this plan of care. Physician Signature: Date:
--- NOTE | 2023-06-07 12:51 | HP.PTREVAL ---
Re-Evaluation Intro: Franklin Arreaga PA-C, It has been my pleasure to treat MARY JO RÍOS over the last 11 visits for L TKA (DOS: 05/09/2023). Please see the progress note below for an update on the physical therapy plan of care! Subjective Subjective: Pt sees surgeon next for f/u. Pt feels the swelling has gone down, still has some redness in LLE. Pt still having some pain when trying to sleep in bed, moves to recliner after 2 hours. Pt is slow going up stairs but has no pain, but going down stairs is more painful Objective Objective/Function: ROM: flex 120 with some assistance, ext 0 MMT: supine hip flex 15 L, 19 R hip ABD L 17, R 20 hip ext L 16, R 21 knee flex L 21, R 28 knee ext L 21 at distal ankle, 29.6 R at distal ankle EDEMA: 16.5 6 inf 15, 6 sup 19 10.5 lateral malleolus Pt doing very well and has met ROM goals, will continue to progress strengthening and transition to gym program. Still having pain with pressure and redness of L tobias, similar amount of tenderness to RLE but no redness, cautious of where applying MMT pressure. Plan Plan Plan: -quad, hip, and calf strengthening (step ups, TKE, STS......) >progress to creating gym program for pt to transition to -work on stairs, pain with descending (add in eccentric quad ex) -possibly practice floor transfers and kneeling (note: pt R knee gives her some trouble) Balance/Gait/Functional tests Balance/Special Test Scores WOMAC Total Score: 69 WOMAC Percentage: 28.1300 Goals Goals Goal 1:: Pt will achieve L knee ROM 0-0-120 Goal Time Frame: 4-6 Weeks Goal Progress: Goal Met Goal 2:: Pt will amb. 300+ ft with no AD Goal Time Frame: 6-8 Weeks Goal Progress: Progressing Goal 3:: Pt will perform TUG in 12s with no AD Goal Time Frame: 6-8 Weeks Goal Progress: Progressing Goal 4:: Pt will be able to complete all gardening tasks with <2/10 pain Goal Time Frame: 8-12 Weeks Goal Progress: Progressing Goal 5:: Pt will navigate a flight of stairs with <2/10 pain and good control upon descent Goal Time Frame: 8-12 Weeks Goal Progress: Progressing Anticipated Interventions Anticipated Interventions Patient/Client Instruction: Educate patient on: Plan of Care For the Purpose of:: To decrease pain, To decrease swelling/inflammation, To increase ROM, To improve muscle performance and motor function, To improve ability to perform ADL's, To improve gait and locomotor functions, To improve health of tissue, To decrease soft tissue restriction, To increase flexibility/ROM, To improve balance, To improve safety with gait, To assume or resume ADL's, To reduce risk of recurrence, To improve safety, To foster healthy habits, To improve self management, To prevent re-injury, To improve ability to perform tasks related to life management and To improve tolerance to ADL's Therapeutic Exercise to Include: Strength training, Balance training, Flexibilty training, Gait and locomotor training, Neuromotor development, Passive ROM and Active ROM For the Purpose of:: To decrease pain, To decrease swelling/inflammation, To increase ROM, To increase oxygenation perfusion, To improve muscle performance and motor function, To improve ability to perform ADL's, To increase tolerance to activity/condition/position, To improve performance and independence with ADL's, To improve ability of physical actions for home/community/work/leisure, To improve endurance, To improve balance, To improve safety with gait, To assume or resume ADL's, To improve safety, To improve health and function, To improve decision making, To facilitate caregiver knowledge, To improve self management, To prevent re-injury and To improve tolerance to ADL's Manual Therapy Techniques to Include: Scar massage, Mobilization, Passive ROM and Soft tissue mobilization For the Purpose of:: To decrease pain, To decrease swelling/inflammation, To increase ROM, To improve health of tissue, To decrease soft tissue restriction and To increase flexibility/ROM Cryotherapy (ice pack, ice massage): Yes For the Purpose of:: To decrease pain and To decrease swelling/inflammation Re-Evaluation Ending Re-evaluation ending: Please do not hesitate to contact me at [phone] by phone or if you have questions or concerns regarding this new plan of care! Sincerely, Robert Liao DPT
--- NOTE | 2023-07-01 09:31 | HP.PTDCSUM ---
Discharge Summary D/C summary: It has been my pleasure to treat MARY JO RÍOS referred by Franklin Arreaga PA-C, with the diagnosis of L TKA (DOS: 05/09/2023) for a total of 19 visit(s). Discharge Date: 07/01/23 Please see the following information for a summary of their discharge status. Subjective Subjective: Pt. reports overall doing well. No pain currently. Pt. continues to have some stiffness upon getting up after prolonged sitting. HEP compliant. Pt. reports being very active. Pain Left Knee: Pain Intensity (Out of 10): 0 Overall Improvement % Improvement: 80 Objective Objective/Function: ROM: 0-0-121 L knee MMT: LLE: ext 23.4#, flexion 17.3# TU.87sec STAIRS: 1 HR with reciprocal pattern, no compensation 6 MWT: 1450 feet Pt. is doing well. After discussing with patient she will be DC to day to HEP and gym program. Pt. is very active and doing great. I want her to continue to stretch and work on progressive walking program. Pt. given handouts for gym exercises as well. Goals Goal 1:: Pt will achieve L knee ROM 0-0-120 Goal Progress: Goal Met Goal 2:: Pt will amb. 300+ ft with no AD Goal Progress: Goal Met Goal 3:: Pt will perform TUG in 12s with no AD Goal Progress: Goal Met Goal 4:: Pt will be able to complete all gardening tasks with <2/10 pain Goal Progress: Goal Met Goal 5:: Pt will navigate a flight of stairs with <2/10 pain and good control upon descent Goal Progress: Goal Met Plan Plan: Pt. will be DC to HEp at this point in time. She is planning on doing gym exercises. Pt. has handouts. She is overall doing D/C Information Discharge Comments: Pt. will be DC from PT at his point in time. She is overall doing great and has good program both walking and exercises to continue progressing on. d/c sentence: If there are questions or concerns regarding this patient's physical therapy, please feel free to call me at [phone]. Thank you for the referral of this patient. Sincerely, Robert Meza Sipos, DPT Balance/Gait/Functional tests Balance/Special Test Scores Lower Extremity Functional Score: 69 WOMAC Total Score: 69 WOMAC Percentage: 28.1300 Improvement % Improvement: 80
== END 2023-07-01 12:24 | disposition home or self-care (01) ==
LOC: PT 09:00
PROVIDERS: PCP Internal Medicine; Referring Provider Physician Assistant Surgical; Visit Provider Physician Assistant Surgical
DX: Z96.652 Presence of left artificial knee joint (principal); Z47.1 Aftercare following joint replacement surgery
CPT/HCPCS: 97016; 97110; 97140; 97161; 97530

== ENCOUNTER 2023-08-12 10:00 | Outpatient (RCR) | payer MEDICARE, SELFPAY ==
--- NOTE | 2023-08-01 09:49 | HP.PTEVAL_ITS ---
Patient's Visit Information Visit Information Visit Information: MARY JO RÍOS is a 77 year old F referred to Physical Therapy by Dr. Donna Alaniz DO with a diagnosis of Right Shoulder Pain. Date of Evaluation: 08/01/23 Physical Therapist: Chhaya Ruelas DPT Visit Plan Frequency: 2x /Week Duration: 4 Weeks Plan: Focus on Scapular Strength/Stabilization and ROM of the right shoulder- Dry needling as modality of choice HEP Given IE: Cane Flexion, Cane Abduction, Wall Wash Flexion Subjective Subjective: Right shoulder pain for a few months- bothers her when she reaches up and out of the side. Reports the pain is dull and achy in the whole shoulders- no radiating pain into the arm of the neck. Worst: 7/10 Agg: reaching overhead. Best: 0/10 Eases: putting it back down into resting position. Right hand dominate. She is using her left arm more. She has not had any recent x-rays. She has had issues with the shoulder before and did dry needling and exercises and it got better. No N/T in the fingers. Sleep: wakes her up if she turns over onto it- she is a right sided sleeper. No MONTGOMERY or neck pains. Really active- big juliet and had her knee replaced in May- so she is in the gym doing exercises for her knee- she is going to have her other knee done. Objective Objective: Posture: forward head, rounded shoulders- can correct with verbal cues Gait: good arm swing and trunk rotation Palpation: tender along bicipital groove and infraspinatus ROM: Cervical: WNL, Shoulder: Flexion: 150 degrees with pain at end range, Abd: 130 degrees pain at end range, IR: belt line with pain, ER: 40 degrees, Elbow/Wrist: WNL Strength: Veterinary Bacteriologist: 40 lbs Elbow: Flexion: 14 Extn: 17 Shoulder: Flexion: 20 Extn: 15 Abd:12 Add:24 IR: 14 ER: 8 Special Tests R Shoulder Lift Off Test - Subscapular Tear: Positive R Shoulder Drop Sign - IS Test: Positive R Shoulder Empty Can - SS: Positive R Shoulder Belly Press - SupScap: Positive R Shoulder Neer - Impingement: Positive R Shoulder Zamora Christ - Impingement: Positive Balance/Special Test Scores Quick DASH Score: 29.5450 Goals Goal 1:: Patient will be I with HEP and progression Goal Time Frame: 4-6 Weeks Goal 2:: Patient will demo full AROM of the right shoulder Goal Time Frame: 4-6 Weeks Goal 3:: Patient will maintain proper posture t/o tx session to demo increased scap s/s Goal Time Frame: 4-6 Weeks Goal 4:: Patient will report no pain with ADL's Goal Time Frame: 4-6 Weeks Goal 5:: Patient will report 80% improvement Goal Time Frame: 4-6 Weeks Rehabilitation Potential Physical Therapy Diagnosis: Patient presents with hypomobility- she has decreased scapular strength/stabilization, ROM, muscular endurance leading to increased pain with ADL's. Anticipated Interventions Patient/Client Instruction: Educate patient on: Benefits of Fitness Program Therapeutic Exercise to Include: Strength training, Coordination, Agility t raining, Body mechanics, Postural training, Flexibilty training, Neuromotor development, Passive ROM, Active ROM and Scapular Strength/Stabilization For the Purpose of:: To improve muscle performance and motor function Manual Therapy Techniques to Include: Passive ROM, Functional dry needling and Soft tissue mobilization TENS: Yes Cryotherapy (ice pack, ice massage): Yes Thermo therapy (hot pack): Yes Text: Thank you for the opportunity to evaluate your patient. For Medicare and Medicare HMO plans, please review the plan of care and approve it. It will need to be FAXED BACK to us at [phone] for Medicare purposes. For Medicare only, by signing this I certify the plan of care. Please let me know if there are questions or concerns regarding this plan of care. Physician Signature: Date:
== END 2023-08-12 19:00 | disposition home or self-care (01) ==
LOC: PT 10:00
PROVIDERS: PCP Internal Medicine; Visit Provider Internal Medicine
DX: M25.511 Pain in right shoulder (principal)
CPT/HCPCS: 97110; 97162; 97530

== ENCOUNTER → 2023-10-17 | Outpatient (CLI) | payer MEDICARE, SELFPAY ==
[2023-10-17 08:49] LABS: Absolute Lymphocyte Count 1.09 X10^3/uL (0.83-4.51); Absolute Neutrophil Count 1.9 X10^3/uL (2.0-7.7); Basophil# 0.05 X10^3/uL; Basophil% 1.4 % (0-1); Eosinophil# 0.18 X10^3/uL; Eosinophils% 4.9 % (0-5); Hematocrit 39.6 % (37-47); Hemoglobin 12.7 g/dL (12.0-15.0); Lymphocyte # 1.09 X10^3/ul (0.83-4.51); Lymphocyte % 29.5 % (19-41); Mean Corp Hgb Conc 32.1 g/dL (32-36); Mean Corpuscular Hgb 29.3 pg (27.0-32.0); Mean Corpuscular Volume 91.5 fL (81-99); Monocyte# 0.44 X10^3/uL; Monocyte% 11.9 % (0-10); NRBC Flagged by Analyzer 0 % (0-5); Neutrophil # 1.93 X10^3/uL (2.7-7.7); Platelet Count 268 K/mm3 (150-450); RBC Distribution Width CV 13.2 % (11.6-14.6); RBC Distribution Width SD 44.9 fl (35.1-43.9); Red Blood Count 4.33 M/mm3 (4.2-5.4); White Blood Count 3.7 K/mm3 (4.4-11.0)
[2023-10-17 09:13] LABS: AST(SGOT) 25 U/L (15-37); Alanine Aminotransfer ALT/SGPT 19 U/L (13-56); Albumin, Serum 3.5 g/dL (3.2-5.0); Alkaline Phosphatase 82 U/L (45-117); Anion Gap 6 (5-15); BUN 14 mg/dL (7-18); BUN/Creat Ratio 23.8 RATIO (10-20); Calcium,Total 9.4 mg/dL (8.5-10.1); Chloride 105 mmol/L (98-107); Cholesterol 169 mg/dL (200); Creatinine, Serum 0.59 mg/dL (0.55-1.02); EST Glomerular Filtration Rate 105 mL/min (>60); Est Glom Filt Rate - Afr Amer 127 mL/min (>60); Globulin 3.4 g/dL (2.2-4.2); Glucose 91 mg/dL (74-106); High Density Lipoprotein 91 mg/dL; Protein, Total 6.9 g/dL (6.4-8.2); Sodium Level 140 mmol/L (136-145); Triglycerides 51 mg/dL; Very Low Density Lipoprotein 10 mg/dL (5-40)
[2023-10-17 10:22] LABS: Hemoglobin A1c 5.8 % (3.8-5.6)
[2023-10-17 10:35] LABS: Microalbumin,Random Urine 6.2 mg/L (NO RANGE EST.); Microalbumin:Creatinine Ratio 20.3 mg/g CRE (<30 mg/g CRE)
[2023-10-17 13:36] LABS: Vitamin D,25 Hydroxy 75.1 ng/mL
== END | disposition home or self-care (01) ==
LOC: LAB 07:31
PROVIDERS: PCP Internal Medicine; Referring Provider Internal Medicine; Visit Provider Internal Medicine
DX: R73.01 Impaired fasting glucose (principal); E55.9 Vitamin D deficiency, unspecified
CPT/HCPCS: 36415; 80053; 80061; 82043; 82306; 82570; 83036; 85025

== ENCOUNTER → 2023-10-24 | Outpatient (CLI) | payer MEDICARE, SELFPAY ==
--- NOTE | 2023-10-24 07:57 | BI_ITS ---
MAMMOGRAPHY - UNILATERAL SCREENING: LEFT BREAST REASON FOR EXAM: Female, 77 years old. Routine annual screening examination (unilateral). PERTINENT HISTORY: Personal history of breast cancer. Prior right mastectomy. TECHNIQUE: Digital unilateral breast lanny (3D mammographic acquisition) in the CC and MLO projections. 2-D mediolateral oblique (MLO) and craniocaudad (CC) views of both breasts were obtained. CAD: Full Field Digital Mammography with Computer Added Detection was performed. COMPARISON: Comparison is made with prior study dated October 22, 2022 and October 19, 2021. FINDINGS: Breast Composition: The breasts are heterogeneously dense, which may obscure small masses. There are no dominant masses or suspicious calcifications. No other significant abnormalities are identified. There has been no significant change since the prior study. BI/SCREEN MAMM (CAD) W/LANNY UNI L IMPRESSION: Stable unilateral screening mammogram. Yearly follow-up mammogram recommended. (A) ASSESSMENT CATEGORY: BIRADS Category 1: Negative. A letter regarding these results will be sent to the patient by the facility within 30 days. Approximately 10% of breast cancers are not detected by mammography. A normal mammogram should not delay biopsy of a clinically suspicious abnormality. [id number] Electronically Signed: Filiberto Medellin MD at 10:05 EDT ,
--- NOTE | 2023-10-24 07:57 | US_ITS ---
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 TECHNICAL QUALITY: Adequate. COMPARISON: Comparison is made with prior study October 23, 2022. FINDINGS: Liver: The liver measures 16.7 cm. There is increased echogenicity consistent with fatty infiltration. The bile ducts are within normal limits. There is hepatic color flow. The direction of portal flow is hepatopetal. There is no demonstrated mass lesion. Gallbladder: Normal distended gallbladder. The gallbladder wall measures 2.2 mm. There is a negative sonographic Ferreira''s sign. There is no pericholecystic fluid. There are no gallstones. Small amount of sludge is seen in the gallbladder. There is an 8 mm x 7 mm x 4 mm gallbladder polyp. Common Bile Duct (C.B.D.): The common bile duct measures 3.2 mm. Pancreas: Normal size of the head, body and tail of the pancreas. There is normal echogenicity of the pancreas. There is no demonstrated pancreatic mass or cyst. Right Kidney: Normal size of the right kidney. The right kidney measures 11.4 cm x 5.6 x 3.9 cm. Normal renal cortex. The right cortex measures 1.2 cm. There is a 1.4 cm x 1.6 cm x 1.3 cm cyst in the mid inferior pole of the kidney. There is no right hydronephrosis. US/Abdomen Limited IMPRESSION: Fatty infiltration of the liver. Findings suggestive of sludge and a small gallbladder polyp. Small right renal cyst. Electronically Signed: Filiberto Medellin MD at 15:01 EDT ,
== END | disposition home or self-care (01) ==
PROVIDERS: PCP Internal Medicine; Referring Provider Internal Medicine; Visit Provider Internal Medicine
DX: Z12.31 Encounter for screening mammogram for malignant neoplasm of breast (principal); K76.0 Fatty (change of) liver, not elsewhere classified; Z85.3 Personal history of malignant neoplasm of breast
CPT/HCPCS: 76705; 77063; 77067

== ENCOUNTER 2023-12-16 10:00 | Outpatient (RCR) | payer MEDICARE, SELFPAY ==
--- NOTE | 2023-11-13 14:53 | HP.PTEVAL_ITS ---
Patient's Visit Information Visit Information Visit Information: MARY JO RÍOS is a 78 year old F referred to Physical Therapy by Dr. Chris Pryor MD with a diagnosis of PAIN IN L HIP. Date of Evaluation: 11/13/23 Physical Therapist: Majo Ortega PT, Cert MDT Visit Plan Frequency: 2-3x /Week Duration: 4-6 Weeks Plan: US at 1.5 w/cm2 to L LB/hip x 6-8 visits. Neutral Spine Core Stability Exercises and David LE Hip Flexor, Hamstring and Calf Stretching to help reduce stress to the Lumbar Spine with all Daily Activities. David LE Strengthening. Instruction in Proper Posture Control, Body Mechanics, and Appropriate Activity Modifications. HEP Instruction Subjective Subjective: Work/Leisure: RETIRED. LIVES WITH WITH STEPS TO BASEMENT AND TWO STEPS OUTSIDE. Present symptoms: L BUTTOCK PAIN. Present since: 5 WKS AGO Pain Scale: WORST 8/10, LEAST 0/10 Currently: /10 Is it getting better, worse or staying the same: STAYING THE SAME Commenced as a result of: FALL IN GARDEN BACKWARDS HITTING TAILBONE ON ROCK Symptoms at onset: TAILBONE PAIN Worse: ON STEPS, WALKING, RISING FROM SITTING, PIVOTING ON LLE, SITTING DOWN, SITTING, STANDING, GARDENING, LIFTING, SHOPPING, GETTING IN/OUT OF CAR, DRIVING, TURNING OVER IN BED Better: TYLONOL, LYING DOWN, TYLONOL PM Disturbed sleep: YES BUT BETTER WITH MEDS AND PILLOW BETWEEN KNEES. Previous history/Previous treatment: L TKR. NO BACK OR L HIP SX. Treatment this episode: Meloxicam. PRESCRIPTION FOR TRAMADOL BUT STATES SHE HASN'T USED IT. Coughing/sneezing/straining: NEGATIVE FOR INCREASED PAIN Gait: PAIN LIMITED. NO CURRENTLY USING ANY AD'S BUT HAS BEEN TEMPTED. Bowel or Bladder Dysfunction: NO Unexplained weight loss: NO Imagin11/05/23 HIP AND PELVIS X-RAY: Osteopenia with moderate arthrosis of both hips, right greater than left. Objective Objective: Sitting/Standing Posture: REDUCED LUMBAR LORDOSIS. NO RELEVANT LATERAL SHIFT Active Correction of posture: BETTER. PASSIVE LUMBAR SUPPORT IN SITTING ABOLISHES LEFT LOW BACK/HIP PAIN. Other Observations: THIS PATIENT AMBULATES INDEP'LY INTO PT WITH SLOW ANTLAGIC GAIT PATTERN WITH SHORT DAVID STRIDE LENGTH AND LIMPING ON HER LLE. SHE WALKS WITH DECREASED TRUNK ROTATION AND NO ARM SWING. WHEN SHE TURNS SHE TURNS WITH HER WHOLE BODY. Sensory deficit: DAVID LE LIGHT TOUCH SENSATION IS GROSSLY INTACT AND SYMMETRICAL ROM deficit: LIMITED DAVID HIP EXT, IR, EXT ROT, ABD, HS AND CALF ROM. DAVID HIP FLEX ROM WFL. Motor deficit: DAVID LE'S GROSSLY 4/5 WITH MMT'ING AND R HIP FLEX PRODUCES C/O L LB/HIP BUT NW A RESULT IN SITTING. L HIP FLEXION TESTING IN SUPINE WITH SLR ALSO PRODUCES C/O L LB/HIP PAIN AND NW A RESULT. Dural Signs: NEGATIVE DAVID LE'S. Lumbar mvmt loss: flex - MOD - INCREASES L LB/BUTTOCK - NW ext - DANO - INCREASES LB/BUTTOCK - NW R SG - MOD - NE L SG - MOD - NE Core strength: FAIR Palpation: NO ACUTE TENDERNESS WITH PALPATION OF LUMBAR SPINE, SI JT, OR DAVID HIP REGIONS TODAY BUT PATIENT REPORTS IT IS TENDER POINTING TO THE L SI JT REGION IF SHE PUSHES HARD. TUG TIME- 21.68 SEC - WITHOUT AD AND DAVID UE ASSIST UP AND DOWN FROM CHAIR. PATIENT ALSO HAS TO TAKE SEVERAL STEPS TO TURN. STS X 30 SEC'S - HANDS ON KNEES AND NO FOAM ON CHAIR - X 7 - PATIENT DENIES INCREASED PAIN WITH THIS TESTING. OTHER: REPEATED B SKTC IN LYING RESULTS IN DECREASED L LB/HIP PAIN AND THEN ABOLISHES PAIN AND REMAINS BETTER A RESULT. TREATMENT: NEUROMUSCULAR REEDUCATION - RETRAINING OF MVMT AND POSTURE FOR SITTING, LYING AND STANDING ACTIVITIES. GAIT TRAINING INSTRUCTIONS WITH STRAIGHT CANE NEEDED TO REDUCE PAIN AND IMPROVE GAIT PATTERN. DX EDUCATION. EDUCATION IN PROPER USE OF HEAT AND COLD NEEDED TO REDUCE PAIN AND INFLAMMATION. HEP INSTRUCTION FOR SKTC X 10 REP EA DAVID EVERY 2 HRS OR SO TOLERATED TO HELP REDUCE PAIN. Balance/Special Test Scores Lower Extremity Functional Score: 22 Goals Goal 1:: DECREASE C/O L LOW BACK/HIP PAIN BY AT LEAST 70% TO EASE ADL FUNCTION Goal Time Frame: 4-6 Weeks Goal 2:: IMPROVE SITTING, STANDING, WALKING, ADL, RECREATIONAL AND SLEEP (WITHOUT MEDICATION) FUNCTION Goal Time Frame: 4-6 Weeks Goal 3:: INSTRUCT IN PROPHYLAXIS Goal Time Frame: 4-6 Weeks Rehabilitation Potential Physical Therapy Diagnosis: L LOW BACK/HIP PAIN, TRUNK AND LE WEAKNESS AND STIFFNESS S/P FALL ~ 5 WKS AGO RESULTING IN DIFFICULTY WITH GAIT AND ADL'S. Rehabilitation Potential: Good Anticipated Interventions Patient/Client Instruction: Educate patient on: Condition, Plan of Care and Risk Factors For the Purpose of:: To improve self management Therapeutic Exercise to Include: Strength training, Body mechanics, Postural training, Flexibilty training, Neuromotor development and Dynamic Lumbar Stabilization For the Purpose of:: To decrease pain, To improve muscle performance and motor function, To improve performance and independence with ADL's, To improve ability of physical actions for home/community/work/leisure, To improve gait and locomotor functions, To increase flexibility/ROM and To improve self management Cryotherapy (ice pack, ice massage): Yes Thermo therapy (hot pack): Yes Ultrasound (thermal/non thermal): Yes For the Purpose of:: To decrease pain, To decrease swelling/inflammation and To improve nutrient delivery to tissue Text: Thank you for the opportunity to evaluate your patient. For Medicare and Medicare HMO plans, please review the plan of care and approve it. It will need to be FAXED BACK to us at [phone] for Medicare purposes. For Medicare only, by signing this I certify the plan of care. Please let me know if there are questions or concerns regarding this plan of care. Physician Signature: Date:
--- NOTE | 2023-12-16 11:42 | HP.PTDCSUM ---
Discharge Summary D/C summary: It has been my pleasure to treat MARY JO RÍOS referred by Dr. Chris Pryor MD, with the diagnosis of PAIN IN L HIP for a total of 7 visit(s). Discharge Date: 12/16/23 Please see the following information for a summary of their discharge status. Subjective Subjective: PATIENT REPORTS HER HIP PAIN HAS RESOLVED. SHE REPORTS SHE HAS GONE FROM TAKING 6 EXTRA STRENGTH TYLONOL TO TAKING NOTHING AND HER PAIN IS GONE. SHE REPORTS SHE IS STILL DOING THE EX'S AND SHE THINKS THEY ARE JUST WHAT SHE NEEDED ALONG WITH THE US. IT FEELS SO GOOD TO BE ABLE TO BE OUT AND ABOUT AND BE ABLE TO WALK. PATIENT REPORTS SHE IS STILL ON Meloxicam FOR HER R KNEE BECAUSE IT IS BONE ON BONE AND SHE WAS PLANNING TO HAVE IT REPLACED BEFORE SHE FELL AND HAD TO DEAL WITH THIS HIP PAIN. Pain Bilateral Hip: Pain Intensity (Out of 10): 0 Overall Improvement % Improvement: 100 Objective Objective/Function: PATIENT WAS SEEN TODAY FOR RE-ASSESSMENT OF PROGRESS TOWARD THE SET PT GOALS AND THE NEED FOR FURTHER PHYSICAL THERAPY VS READINESS FOR DISCHARGE. THIS PATIENT HAS RESPONDED GREAT TO PHSICAL THERAPY FOR HER HIP. UPON EXAM TODAY: THIS PATIENT AMBULATES INDEP'LY INTO PT TODAY WITHOUT ANY AD'S. TUG TIME = 9.59 SEC - WITHOUT AD STS X 30 SEC'S = 12 WITHOUT UE ASSIST OR C/O INCREASED PAIN. INDEP HEP. Goals Goal 1:: DECREASE C/O L LOW BACK/HIP PAIN BY AT LEAST 70% TO EASE ADL FUNCTION Goal Progress: Goal Met Goal 2:: IMPROVE SITTING, STANDING, WALKING, ADL, RECREATIONAL AND SLEEP (WITHOUT MEDICATION) FUNCTION Goal Progress: Goal Met Goal 3:: INSTRUCT IN PROPHYLAXIS Goal Progress: Goal Met Plan Plan: D/C. PATIENT AGREEABLE. D/C Information d/c sentence: If there are questions or concerns regarding this patient's physical therapy, please feel free to call me at [phone]. Thank you for the referral of this patient. Sincerely, Majo Ortega, PT, Cert MDT Balance/Gait/Functional tests Balance/Special Test Scores Lower Extremity Functional Score: 61 Improvement % Improvement: 100
== END 2023-12-16 19:00 | disposition home or self-care (01) ==
LOC: PT 10:00
PROVIDERS: PCP Internal Medicine; Referring Provider Specialist; Visit Provider Specialist
DX: M25.552 Pain in left hip (principal)
CPT/HCPCS: 97035; 97110; 97112; 97162; 97530

== ENCOUNTER → 2024-01-11 | Outpatient (CLI) | payer MEDICARE, SELFPAY ==
[2024-01-11 07:55] LABS: Absolute Lymphocyte Count 0.91 X10^3/uL (0.83-4.51); Absolute Neutrophil Count 1.8 X10^3/uL (2.0-7.7); Basophil# 0.05 X10^3/uL; Basophil% 1.5 % (0-1); Eosinophil# 0.16 X10^3/uL; Hematocrit 40.4 % (37-47); Lymphocyte # 0.91 X10^3/ul (0.83-4.51); Lymphocyte % 28.2 % (19-41); Mean Corp Hgb Conc 32.2 g/dL (32-36); Mean Corpuscular Hgb 29.5 pg (27.0-32.0); Mean Corpuscular Volume 91.8 fL (81-99); Mean Platelet Vol. 9.9 fl (6.2-12.0); Monocyte# 0.31 X10^3/uL; Monocyte% 9.6 % (0-10); NRBC Flagged by Analyzer 0 % (0-5); Neutrophil # 1.79 X10^3/uL (2.7-7.7); Neutrophil % 55.4 % (47-70); Platelet Count 262 K/mm3 (150-450); RBC Distribution Width CV 13.2 % (11.6-14.6); RBC Distribution Width SD 44.6 fl (35.1-43.9); White Blood Count 3.2 K/mm3 (4.4-11.0)
[2024-01-11 08:18] LABS: Hemoglobin A1c 5.7 % (3.8-5.6)
[2024-01-11 08:21] LABS: ALB/GLOB Ratio 1.4 RATIO (0.9-2.4); AST(SGOT) 25 U/L (15-37); Alanine Aminotransfer ALT/SGPT 19 U/L (13-56); Albumin, Serum 4.1 g/dL (3.2-5.0); Alkaline Phosphatase 105 U/L (45-117); Anion Gap 4 (5-15); BUN 15 mg/dL (7-18); Calcium,Total 9.6 mg/dL (8.5-10.1); Chloride 107 mmol/L (98-107); EST Glomerular Filtration Rate 102 mL/min (>60); Est Glom Filt Rate - Afr Amer 124 mL/min (>60); Globulin 2.9 g/dL (2.2-4.2); Glucose 99 mg/dL (74-106); Potassium 3.9 mmol/L (3.5-5.1); Sodium Level 139 mmol/L (136-145)
[2024-01-12 08:09] LABS: AFP, Tumor Marker 3.2 ng/mL (0.0-9.2)
[2024-01-13 08:24] LABS: Vitamin D,25 Hydroxy 55.6 ng/mL
== END | disposition home or self-care (01) ==
LOC: LAB 07:08
PROVIDERS: PCP Internal Medicine; Referring Provider Internal Medicine; Visit Provider Internal Medicine
DX: K76.0 Fatty (change of) liver, not elsewhere classified (principal); E55.9 Vitamin D deficiency, unspecified; R73.01 Impaired fasting glucose
CPT/HCPCS: 36415; 80053; 82105; 82306; 83036; 85025

== ENCOUNTER → 2024-04-13 | Outpatient (CLI) | payer MEDICARE, SELFPAY ==
--- NOTE | 2024-04-13 08:21 | CT_ITS ---
PROCEDURE: Right lower extremity without IV contrast enhancement. REASON FOR EXAM: Osteoarthritis. Pre-surgical planning TECHNIQUE: Axial CT images of the right hip, right knee and right ankle performed without IV contrast enhancement, utilizing a Leoncio protocol. Sagittal and coronal reconstructed images were performed for better visualization of the horizontal structures. COMPARISON: None. FINDINGS: Right hip: Uksk-iw-eskqtcwf osteoarthritic changes, with superior joint space loss. There is mild osteophytic spurring involving the acetabulum and humeral head. Trabecular markings are preserved. No acute fractures or dislocations are identified. Old fracture deformities involving the superior and inferior pubic rami on the right. Overlying soft tissues appear intact. Right knee: Anatomic alignment. Ubmy-el-kngbkmwx degenerative changes, with joint space loss most prominent of the medial compartment. There is izfh-ig-[id number] marginal osteophytosis. No acute fractures or dislocations are identified. Small enthesophyte arising from the superior patella. No bony destructive lesions are seen. No large joint effusion. Trace calcification within the distal quadriceps tendon. Vascular calcifications within the popliteal artery. Overlying soft tissues appear intact. Right ankle: Anatomic alignment. The ankle mortise is intact. No significant joint space loss. Trace spurring involving the distal fibula. No acute fractures or dislocations are identified. No bony destructive lesions are seen. 2 small well corticated accessory ossicles adjacent to the navicular, both measuring approximately 3-4 mm. Tiny plantar and posterior calcaneal enthesophytes. Overlying soft tissues appear intact. CT/Extremity Lower without Contra IMPRESSION: 1. Ayix-lp-ljcodjgf osteoarthritic changes involving the right hip and right kn ee, as detailed above. 2. Minimal degenerative change involving the right ankle. 3. No acute fractures or dislocations are identified. 4. Additional findings, as detailed above. One or more dose reduction techniques were used (e.g., Automated exposure contr ol, adjustment of the mA and/or kV according to patient size, use of iterative reconstruction technique). [facility]
--- NOTE | 2024-04-13 08:22 | EKG12_ITS ---
Test Reason : PRE OP Blood Pressure : */* mmHG Vent. Rate : 65 BPM Atrial Rate : 65 BPM P-R Int : 156 ms QRS Dur : 100 ms QT Int : 388 ms P-R-T Axes : 73 78 71 degrees QTcB Int : 403 ms Normal sinus rhythm Possible Left atrial enlargement Left ventricular hypertrophy Abnormal ECG Confirmed by Roderick Chery ([id number]), senior editor CHRIS VALDIVIA ([id number]) on 04/13/2024 11:13:50 AM Referred By: Chris Pryor Confirmed By: Roderick Chery
== END | disposition home or self-care (01) ==
LOC: CT 08:19
PROVIDERS: PCP Internal Medicine; Referring Provider Specialist; Visit Provider Specialist
DX: Z01.818 Encounter for other preprocedural examination (principal); M17.11 Unilateral primary osteoarthritis, right knee; M21.161 Varus deformity, not elsewhere classified, right knee; Z01.810 Encounter for preprocedural cardiovascular examination
CPT/HCPCS: 73700; 93005

== ENCOUNTER → 2024-05-04 | Outpatient (CLI) | payer MEDICARE, SELFPAY ==
[2024-05-05 02:24] LABS: Calcium 10.2 mg/dL (7.6-11.0)
== END | disposition home or self-care (01) ==
LOC: LABSPEC 15:40
PROVIDERS: PCP Internal Medicine; Referring Provider Internal Medicine; Visit Provider Internal Medicine
DX: E83.52 Hypercalcemia (principal)
CPT/HCPCS: 82310

== ENCOUNTER 2024-06-04 12:30 | Outpatient (RCR) | payer MEDICARE, SELFPAY ==
--- NOTE | 2024-05-12 09:26 | HP.PTEVAL ---
Patient's Visit Information Visit Information Visit Information: MARY JO RÍOS is a 78 year old F referred to Physical Therapy by GERARD Foley with a diagnosis of R TKA DOS: 05/07/24. Date of Evaluation: 05/11/24 Physical Therapist: Robert Liao DPT Visit Plan Frequency: 2x /Week Duration: 6 Weeks Plan: 1) R knee ROM progressing to 0-0-120deg., HS stretching, nustep, stair stretch, heel slides 2) quad and glute strengthening 3) ice, patient has tender calves due to varicose veins (hold off on vaso due to this) 4) gait progression. Pt. really wants to get away from FWW. Do as tolerated, but makes iure she is not in too much pain and refraining from gait due to trying to get to lower AD. Subjective Subjective: Pt. is here today for her initial evaluation with diagnosis of R TKA, DOS: 05/07/24. Pt. reports overall doing very well. She does have bruising, but feels well. She has a history of varicose veins causing calf pain. NO N/T, no marked calf pain, no difficulty with breathing. Pt. has been doing exercises at home and did prehab as well. Pt. likes to garden and is excited to get back to that. Pt. does report that she had some increased bleeding after a few days and had to get a new bandage in place. No staple issues noted. Pt. to take off bandage tomorrow. Pt. is hopeful to get back to all gardening and recreational activities. Pain R knee: Pain Intensity (Out of 10): 3 Pain Intensity Range: 1 and 6 Objective Objective: POSTURE: Pt. has good posture in stance. Pt. has slight wt. shift to L side in stance. Pt. lacks TKE on RLE in stance. PALPATION: pt. has marked edema 6cm difference at mid patella. Pt. has bandage in place. Marked bruising at both incisions. Pt. is on blood thinners and physician is aware of her brusing. No marked heat noted. Pt. does have some R calf soreness, but reports that this is normal due to her varicose veins. NEURO: Pt. has normal sensation throughout BLEs. Pt. has 2+ achilles DTR bilaterally. Pt. is able to rise on heels and toes without issues. ROM: R knee: 0-3-100deg. Pt. has tight end feel, but not firm. Pt. reports slight increase in pain at end ranges. MMT: R knee: ext 8#, flexion 7#; hip: flexion 4#, abd 4#. GAIT: pt. ambulates with good tolerance with FWW. PT. has good TKE during stance and decent knee flexion during swing. She did walk without AD as well. She was a little bit more rigid with her movements, but stability was good. She asked about walking without FWW. I suggested that she continue to use for now, but will use her tolerance as a how we progress. I did talk to her that I do not want her getting away from an AD and then walking less due to intolerance. I want her moving and walking and to continue with FWW to allow for this. Balance/Special Test Scores Lower Extremity Functional Score: 19 TUG Test Time Seconds: 16 30 Second Chair Rise Test Seconds: 11 Goals Goal 1:: LTG: Pt. to be I with HEP. Goal Time Frame: 4-6 Weeks Goal 2:: STG: Pt. to have increased R knee ROM to 0-0-120deg. Goal Time Frame: 2-4 Weeks Goal 3:: LTG: Pt. to have symmetrical strength between BLEs. Goal Time Frame: 6-8 Weeks Goal 4:: LTG: Pt. to complete TUG with time less than 10seconds without AD. Goal Time Frame: 6-8 Weeks Goal 5:: LTG: Pt. to have normal gait pattern without AD with out increase in R knee pain. Goal Time Frame: 4-6 Weeks Goal 6:: LTG: Pt. to complete 30sec sit to stand rep test with at least 13 reps without use of UEs. Goal Time Frame: 4-6 Weeks Rehabilitation Potential Physical Therapy Diagnosis: Pt. has signs and symptoms consistent with R TKA, DOS: 05/07/24. Pt. is doing very well, but has marked edema, hypomobility, weakness, difficulty with gait and increased pain. Pt. would benefit from PT to address the above limitations progressing back to all recreational activities without limitations. Rehabilitation Potential: Excellent Anticipated Interventions Patient/Client Instruction: Educate patient on: Condition, Plan of Care, Risk Factors and Benefits of Fitness Program For the Purpose of:: To improve decision making, To facilitate caregiver knowledge, To improve self management, To prevent re-injury and To improve ability to perform tasks related to life management Therapeutic Exercise to Include: Strength training, Power training, Balance training, Coordination, Body mechanics, Postural training, Flexibilty training, Gait and locomotor training, Passive ROM, Active ROM and Dynamic Lumbar Stabilization For the Purpose of:: To decrease pain, To increase ROM, To improve nutrient delivery to tissue, To increase oxygenation perfusion, To improve muscle performance and motor function, To improve ability to perform ADL's, To increase tolerance to activity/condition/position, To improve performance and independence with ADL's, To improve gait and locomotor functions, To improve health of tissue and To decrease soft tissue restriction Manual Therapy Techniques to Include: Passive ROM and Soft tissue mobilization For the Purpose of:: To decrease pain, To decrease swelling/inflammation and To increase ROM Cryotherapy (ice pack, ice massage): Yes Text: Thank you for the opportunity to evaluate your patient. For Medicare and Medicare HMO plans, please review the plan of care and approve it. It will need to be FAXED BACK to us at [phone] for Medicare purposes. For Medicare only, by signing this I certify the plan of care. Please let me know if there are questions or concerns regarding this plan of care. Physician Signature: Date:
== END 2024-06-04 19:00 | disposition home or self-care (01) ==
LOC: PT 12:30
PROVIDERS: PCP Internal Medicine
DX: M17.11 Unilateral primary osteoarthritis, right knee (principal); M21.161 Varus deformity, not elsewhere classified, right knee
CPT/HCPCS: 97110; 97140; 97161

== ENCOUNTER → 2024-10-27 | Outpatient (CLI) | payer MEDICARE, SELFPAY ==
--- NOTE | 2024-10-27 07:40 | US_ITS ---
PROCEDURE: ABD LIMITED W/ ELASTOGRAPHY REASON FOR EXAM: HEPATIC FIBROSIS COMPARISON: Prior study dated October 24, 2023. TECHNIQUE: Right upper quadrant abdominal ultrasound. Bailee ElastQ Imaging shear wave elastography for non-invasive assessment of liver tissue stiffness. Bailee EPIQ Elite. FINDINGS: LIVER: Size: Enlarged (hepatomegaly) Length: 19.5 cm Echotexture: Diffusely echogenic suggesting fatty infiltration Contour: Normal Lesions: None identified Elastography: EQI Med: 18.3 kPa EQI Med Humza: 2.44 m/s IQR/Med: 17 %* GALLBLADDER: There is a 1.4 cm x 1 cm x 0.4 cm sludge ball within the gallbladder lumen. The gallbladder wall is not thickened. COMMON BILE DUCT: Normal measuring 3.6 mm . PANCREAS: Visualized portions are sonographically unremarkable. The kidney measures 11.4 cm 6 cm 4 cm. Renal cortex measures 1.2 cm. There is a 1.7 cm 1.7 cm 1.4 cm cyst in the inferior pole of the right kidney. No right upper quadrant ascites. US/ABD Limited w/ Elastography IMPRESSION: SEVERE HEPATIC FIBROSIS / CIRRHOSIS Sludge ball seen in the gallbladder lumen. Hepatomegaly and diffuse fatty infiltration of the liver. Reference Values: SRU <1.37 m/s (5.7kPa): No to mild fibrosis 1.37 m/s - 2.2 m/s: Moderate to severe fibrosis >2.2 m/s (15kPa): Significant fibrosis / cirrhosis METAVIR Score F2 or higher: 1.34 m/s (5.7kPa) F3 or higher: 1.55 m/s (7.3kPa) F4: 1.80 m/s (10kPa) * If the IQR/Med is >30%, the variance in the measurements is a large and the a ccuracy of the measurement may be in question. Reading Location: [facility]
--- NOTE | 2024-10-27 08:34 | BI_ITS ---
EXAM: SCRN MAMM (CAD)W/LANNY BILAT DATE: 10/27/2024 CLINICAL HISTORY: F, Age 79 y/o , SCREENING Personal history of breast cancer. Prior right mastectomy. TECHNIQUE: SCRN MAMM (CAD)W/LANNY BILAT COMPARISON: Prior exam(s) dated October 24, 2023.. FINDINGS: TISSUE DENSITY: The breasts are heterogeneously dense, which may obscure small masses. Bilateral Breast Mammographic Findings: No significant masses, calcifications or other abnormalities are identified. No suspicious masses, areas of developing architectural distortion, or suspicious calcifications. There has been no significant interval change. BI/SCRN MAMM (CAD)W/LANNY BILAT IMPRESSION: Stable examination. OVERALL FINAL ASSESSMENT BI-RADS 1: NEGATIVE. RECOMMENDATION: Routine annual follow-up in 1 Year A letter with findings and recommendations will be mailed to the patient. Reading Location: [id number]
== END | disposition home or self-care (01) ==
LOC: US 07:28
PROVIDERS: PCP Internal Medicine; Referring Provider Internal Medicine; Visit Provider Internal Medicine
DX: Z12.31 Encounter for screening mammogram for malignant neoplasm of breast (principal); K76.0 Fatty (change of) liver, not elsewhere classified; I34.0 Nonrheumatic mitral (valve) insufficiency
CPT/HCPCS: 76705; 76981; 77063; 77067

== ENCOUNTER → 2024-10-29 | Outpatient (CLI) | payer MEDICARE, SELFPAY ==
--- NOTE | 2024-10-29 12:46 | ECHOD_ITS ---
Reason For Study Reason For Study: Mitral Regurgitation Procedure This was a 2D Doppler, Color Flow transthoracic echocardiogram. Myocardial strain analysis was performed in this exam to aid in the assessment of cardiac function. Exam performed in department. Left Ventricle Normal LV size. The global longitudinal strain = -19.5 % (normal). The left ventricular ejection fraction is 60 %. Stage 1 diastolic dysfunction. No regional wall motion abnormalities noted. Right Ventricle Normal RV size. Normal systolic function. Atria Normal left atrium. Normal right atrium. Mitral Valve There is mild mitral annular calcification. Trivial eccentric mitral valve insufficiency. Tricuspid Valve Normal tricuspid valve. Mild (1+) tricuspid valve insufficiency. Pulmonary artery systolic pressure is 28 mmHg. Aortic Valve Trisinus/trileaflet aortic valve. Mild focal aortic valve calcification. Pulmonic Valve Normal pulmonic valve. Great Vessels Normal aortic root. The pulmonary artery is normal size. Inferior vena cava collapse with respiration. Pericardium/Pleural No pericardial effusion. MMode/2D Measurements & Calculations LVIDd: 4.6 cm IVSd: 1.4 cm CO(Teich): 4.7 l/min LVIDs: 2.8 cm LVPWd: 0.99 cm RVDd: 3.3 cm FS: 38.7 % Ao root diam: 3.0 cm LAV(MOD-bp): 61.4 ml LVAd ap4: 25.1 cm2 LAV(MOD-bp) Indexed: 31.6 ml/m2 LVLd ap4: 6.7 cm LAV(MOD-sp2): 53.8 ml EDV(MOD-sp4): 77.8 ml LAV(MOD-sp4): 59.8 ml EDV(sp4-el): 79.5 ml LVAs ap4: 14.7 cm2 LVLs ap4: 5.8 cm ESV(MOD-sp4): 32.6 ml ESV(sp4-el): 31.8 ml EF(MOD-sp4): 58.1 % EF(sp4-el): 60.0 % CO(MOD-sp4): 3.1 l/min SV(sp4-el): 47.7 ml LA A4 area: 20.6 cm2 SV(MOD-sp4): 45.2 ml SI(MOD-sp4): 23.3 ml/m2 LA dimension(2D): 3.6 cm RA A4 area: 15.6 cm2 Time Measurements MV dec time: 0.25 sec Doppler Measurements & Calculations MV E max humza: 89.0 cm/sec Lat Peak E' Humza: 8.0 cm/sec Med Peak E' Humza: 8.2 cm/sec MV A max humza: 129.0 cm/sec E/E' lat: 11.1 E/E' med: 10.9 MV E/A: 0.69 MV V2 max: 157.2 cm/sec MV P1/2t max humza: 118.4 cm/sec Ao V2 max: 162.5 cm/sec MV max P.9 mmHg MV P1/2t: 98.5 msec Ao max P.6 mmHg MV V2 mean: 78.2 cm/sec Ao V2 mean: 108.1 cm/sec MV mean P.0 mmHg MV dec slope: 352.0 cm/sec2 Ao mean P.5 mmHg MV V2 VTI: 43.7 cm MVA(P1/2t): 2.2 cm2 Ao V2 VTI: 39.2 cm AV (velocity ratio): 0.90 LV V1 max: 153.6 cm/sec MR max humza: 579.5 cm/sec PA V2 max: 106.8 cm/sec LV V1 max P.4 mmHg MR max P.3 mmHg LV V1 mean P.0 mmHg LV V1 mean: 105.0 cm/sec LV V1 VTI: 35.1 cm TR max humza: 246.1 cm/sec TR max P.2 mmHg ECHO/Echo Complete Interpretation Summary Normal LV size. The global longitudinal strain = -19.5 % (normal). The left ventricular ejection fraction is 60 %. Stage 1 diastolic dysfunction. Ordering Physician: Donna Alaniz Referring Physician: Donna Alaniz Performed By: Alvin Gilbert RCS
== END | disposition home or self-care (01) ==
LOC: CVS 12:44
PROVIDERS: PCP Internal Medicine; Referring Provider Internal Medicine; Visit Provider Internal Medicine
DX: I34.0 Nonrheumatic mitral (valve) insufficiency (principal)
CPT/HCPCS: 93306

== ENCOUNTER → 2025-02-09 | Outpatient (CLI) | payer MEDICARE, SELFPAY ==
[2025-02-09 10:23] LABS: Prothrombin Time (Protime)PT. 12.9 SECONDS (11.7-14.9)
[2025-02-09 10:24] LABS: Partial Thromboplast Time 26.6 Seconds (24.1-36.2)
[2025-02-09 11:04] LABS: Hematocrit 40.3 % (37-47); Hemoglobin 13.4 g/dL (12.0-15.0); Immature Granulocytes Count 0.010 X10^3/uL (0.0-0.0); Mean Corp Hgb Conc 33.3 g/dL (32-36); Mean Corpuscular Volume 91.6 fL (81-99); Mean Platelet Vol. 10.0 fl (6.2-12.0); NRBC Flagged by Analyzer 0 % (0-5); Platelet Count 256 K/mm3 (150-450); RBC Distribution Width CV 12.8 % (11.6-14.6); RBC Distribution Width SD 43.6 fl (35.1-43.9); Red Blood Count 4.40 M/mm3 (4.2-5.4); White Blood Count 4.0 K/mm3 (4.4-11.0)
[2025-02-09 13:11] LABS: AST(SGOT) 25 U/L (<=31); Alanine Aminotransfer ALT/SGPT 17 U/L (<=34); Albumin, Serum 4.5 g/dL (3.4-4.8); Alkaline Phosphatase 69 U/L (35-104); Anion Gap 12 (5-15); BUN 16 mg/dL (4-19); BUN/Creat Ratio 26.2 RATIO (10-20); Calcium,Total 9.9 mg/dL (7.6-11.0); Carbon Dioxide 26.0 mmol/L (21.0-32.0); Chloride 101 mmol/L (98-108); Globulin 2.5 g/dL (2.2-4.2); Glucose 100 mg/dL (70-99); Potassium 3.8 mmol/L (3.3-5.1); Vitamin D,25 Hydroxy 40.7 ng/mL (30-100)
[2025-02-10 11:08] LABS: Lyme Scn Total Ab w/Rflx Negative (Negative)
== END | disposition home or self-care (01) ==
LOC: CIMLAB 09:16
PROVIDERS: PCP Internal Medicine; Referring Provider Internal Medicine; Visit Provider Internal Medicine
DX: K76.0 Fatty (change of) liver, not elsewhere classified (principal); R73.01 Impaired fasting glucose; E55.9 Vitamin D deficiency, unspecified; W57.XXXA Bitten or stung by nonvenomous insect and other nonvenomous arthropods, initial encounter
CPT/HCPCS: 36415; 80053; 82306; 83036; 85025; 85610; 85730; 86618

== ENCOUNTER → 2025-02-18 | Outpatient (CLI) | payer MEDICARE, SELFPAY ==
--- NOTE | 2025-02-18 08:08 | BD_ITS ---
PROCEDURE: DEXA BONE DENSITY STUDY 02/18/2025 REASON FOR EXAM: F, age 79 y/o . Postmenopausal. TECHNIQUE: Procedure Code: BDDBD Modality: DX Procedure: DEXA BONE DENSITY STUDY COMPARISON: December 25, 2022. FINDINGS: BMD and T-SCORES Lumbar spine: 0.995 g/cm2, T-score -0.5 Levels: L1 through L4 Left femoral neck: 0.615 g/cm2, T-score -2.1 Femoral neck comparison data not recommended for monitoring change. Left total hip: 0.665 g/cm2, T-score -2.3 Change from prior: Loss of 3.4%. Right femoral neck: 0.652 g/cm2, T-score -1.8 Femoral neck comparison data not recommended for monitoring change. Right total hip: 0.669 g/cm2, T-score -2.2 Change from prior: Loss of 0.2%. The World Health Organization has defined the following categories based on bone density: Normal bone density: T-score equal to or greater than -1.0 Osteopenia: T-score between -1.0 and -2.5 Osteoporosis: T-score equal to or less than -2.5 FRAX (or Comparable) Fracture Risk Assessment: 10 Year Probability of Fracture: Major Osteoporotic Fracture: 39% Hip Fracture: 24% (Note: FRAX is not to be reported in setting of normal range bone density, osteoporosis on DEXA, known history of osteoporosis, prior osteoporotic hip or vertebral fracture, or for any patient undergoing pharmacological treatment for bone loss.) The National Osteoporosis Foundation (NOF) recommends pharmacological treatment for patients with a FRAX 10-year risk of 3% or higher for a hip fracture, or 20% or higher for a major osteoporotic fracture, to prevent osteoporosis and reduce fracture risk. The patient does meet the pharmacological treatment recommendations for prevention of osteoporosis. BD/Dexa Bone Density Study IMPRESSION: OSTEOPENIA. Recommend follow-up as clinically warranted. Reading Location: [id number]
== END | disposition home or self-care (01) ==
LOC: OPBD 08:07
PROVIDERS: PCP Internal Medicine; Referring Provider Internal Medicine; Visit Provider Internal Medicine
DX: Z78.0 Asymptomatic menopausal state (principal)
CPT/HCPCS: 77080